=== PATIENT | female | born 1950 | race Caucasian/White ===

== ENCOUNTER 2016-09-25 | Outpatient (CLI) | payer MEDICARE, OTHER | END 2016-09-25 11:41 | disposition home or self-care (01) ==

== ENCOUNTER 2016-10-10 12:45 | Outpatient (CLI) | payer MEDICARE, OTHER | END 2016-10-10 12:46 | disposition home or self-care (01) | DX: G20 Parkinson's disease (principal); R53.83 Other fatigue; R52 Pain, unspecified; F33.9 Major depressive disorder, recurrent, unspecified; F41.9 Anxiety disorder, unspecified; K59.00 Constipation, unspecified; G25.81 Restless legs syndrome; F11.90 Opioid use, unspecified, uncomplicated; Z51.5 Encounter for palliative care; Z66 Do not resuscitate ==

== ENCOUNTER 2016-10-31 13:00 | Outpatient (CLI) | payer MEDICARE, OTHER | END 2016-10-31 13:01 | disposition home or self-care (01) | DX: G20 Parkinson's disease (principal); G24.9 Dystonia, unspecified; F33.0 Major depressive disorder, recurrent, mild; R52 Pain, unspecified; K59.00 Constipation, unspecified; F11.90 Opioid use, unspecified, uncomplicated; Z91.81 History of falling; R53.83 Other fatigue; G25.81 Restless legs syndrome; Z66 Do not resuscitate; Z51.5 Encounter for palliative care; R63.4 Abnormal weight loss; Z91.14 Patient's other noncompliance with medication regimen ==

== ENCOUNTER 2016-11-27 12:00 | Outpatient (CLI) | payer MEDICARE, OTHER | END 2016-11-27 12:01 | disposition home or self-care (01) | DX: G20 Parkinson's disease (principal); Z91.81 History of falling; F33.9 Major depressive disorder, recurrent, unspecified; F41.9 Anxiety disorder, unspecified; K59.00 Constipation, unspecified; G25.81 Restless legs syndrome; M54.5 Low back pain; Z79.891 Long term (current) use of opiate analgesic; R32 Unspecified urinary incontinence; M79.605 Pain in left leg; M79.604 Pain in right leg; R13.10 Dysphagia, unspecified; Z51.5 Encounter for palliative care; Z66 Do not resuscitate ==

== ENCOUNTER 2017-01-02 12:45 | Outpatient (CLI) | payer MEDICARE, OTHER | END 2017-01-02 12:46 | disposition home or self-care (01) | DX: Z51.5 Encounter for palliative care (principal); F32.9 Major depressive disorder, single episode, unspecified; G89.29 Other chronic pain; Z79.891 Long term (current) use of opiate analgesic; R13.10 Dysphagia, unspecified; Z91.81 History of falling; G24.9 Dystonia, unspecified; G20 Parkinson's disease; R10.9 Unspecified abdominal pain; G25.81 Restless legs syndrome; Z66 Do not resuscitate; R06.02 Shortness of breath ==

== ENCOUNTER 2017-01-30 13:30 | Outpatient (CLI) | payer MEDICARE, OTHER | END 2017-01-30 13:31 | disposition home or self-care (01) | DX: Z51.5 Encounter for palliative care (principal); F32.9 Major depressive disorder, single episode, unspecified; G89.29 Other chronic pain; K59.00 Constipation, unspecified; R47.02 Dysphasia; Z91.81 History of falling; G20 Parkinson's disease; G24.9 Dystonia, unspecified; R53.83 Other fatigue; F41.9 Anxiety disorder, unspecified; Z79.891 Long term (current) use of opiate analgesic; G25.81 Restless legs syndrome; Z66 Do not resuscitate; R06.02 Shortness of breath; N39.41 Urge incontinence; R20.2 Paresthesia of skin ==

== ENCOUNTER 2017-02-17 15:07 | Outpatient (CLI) | payer MEDICARE, OTHER | END 2017-02-17 15:08 | disposition critical access hospital (66) | LOC: EMS 15:07 | PROVIDERS: ATTEND Surgery | DX: S09.90XA Unspecified injury of head, initial encounter (principal); W18.31XA Fall on same level due to stepping on an object, initial encounter; Y92.012 Bathroom of single-family (private) house as the place of occurrence of the external cause | CPT/HCPCS: A0425; A0429 ==

== ENCOUNTER 2017-02-17 15:55 | Emergency (ER) | payer MEDICARE, OTHER ==
[2017-02-17 16:15] VITALS: BP 184/86
--- NOTE | 2017-02-17 16:21 | ED Physician Documentation ---
PD HPI Fall - Stated complaint Stated Complaint: FALL - Chief complaint Chief Complaint: General - History obtained from History obtained from: Patient - History of Present Illness Mechanism of injury: Slipped (in bathroom) Fall distance: Standing position Where injury occurred: Home Timing - onset: Today Injury(ies) location: Head (on side of face and head, with pain at masseter msucle and husrts with chewing.), Face Associated symptoms: No: LOC, AMS, Weakness, Paresthesias, Nausea / vomiting Worsens with: Movement (chewing and opening mouth), Palpation Contributing factors: No: Anticoagulated, Intoxicated Recently seen: Not recently seen Review of Systems Constitutional: denies: Fever, Chills Eyes: denies: Loss of vision, Decreased vision, Photophobia Nose: denies: Epistaxis Throat: denies: Dental pain / toothache Musculoskeletal: denies: Neck pain, Back pain Neurologic: denies: Generalized weakness, Focal weakness, Numbness Endocrine: denies: Easy bruising / bleeding PD PAST MEDICAL HISTORY - Past Medical History Respiratory: Other Neuro: Parkinson's Musculoskeletal: Osteoarthritis, Scoliosis, Chronic back pain - Present Medications Home Medications: Ambulatory Orders Medication Instructions Recorded Confirmed Amantadine HCl [Amantadine] 100 mg PO DAILY 02/17/17 02/17/17 Carbidopa/Levodopa 25/100 [Sinemet 1 tab PO QID 02/17/17 02/17/17 25 mg/100 mg] Omeprazole [PriLOSEC] 20 mg PO DAILY 02/17/17 02/17/17 Oxybutynin Chloride [Ditropan Xl] 15 mg PO DAILY 02/17/17 02/17/17 Polyethylene Glycol 3350 [Miralax] 1 tbs PO DAILY 02/17/17 02/17/17 Ropinirole HCl 1 mg PO BID 02/17/17 02/17/17 Ropinirole HCl 3 mg PO DAILY 02/17/17 02/17/17 Senna [Senokot] 8.6 mg PO BID 02/17/17 02/17/17 Trihexyphenidyl HCl 2 mg PO QID 02/17/17 02/17/17 Venlafaxine [Effexor] 37.5 mg PO DAILY 02/17/17 02/17/17 oxyCODONE [Roxicodone] 5 mg PO DAILY 02/17/17 02/17/17 - Allergies Allergies/Adverse Reactions: Allergies Allergy/AdvReac Type Severity Reaction Status Date / Time No Known Drug Allergies Allergy Verified 02/17/17 16:03 PD ED PE NORMAL - Vitals Vital signs reviewed: Yes - General General: Alert and oriented X 3, No acute distress, Well developed/nourished - HEENT HEENT: Ears normal, Moist mucous membranes, Pharynx benign, Dentition benign, Other (side of face with tenderness without deformity. No maloccllusion. ) - Neck Neck: Supple, no meningeal sign, No bony TTP, No adenopathy - Derm Derm: Normal color, Warm and dry - Neuro Neuro: Alert and oriented X 3, No motor deficit, No sensory deficit, Normal speech Results - Vitals Vitals: Oxygen O2 Source Room air - Rads (name of study) head and face CT Radiology: Prelim report reviewed, EMP read contemporaneously (no fractures nor bleed. ) PD MEDICAL DECISION MAKING - ED course Complexity details: considered differential, d/w patient Departure - Departure Disposition: 01 Home, Self Care Clinical Impression: Fall from slip, trip, or stumble Qualifiers: Encounter type: initial encounter Qualified Code(s): W01.0XXA - Fall on same level from slipping, tripping and stumbling without subsequent striking against object, initial encounter Facial contusion Qualifiers: Encounter type: initial encounter Qualified Code(s): S00.83XA - Contusion of other part of head, initial encounter Clinical Impression: (Ruled Out): Concussion Condition: Stable Record reviewed to determine appropriate education?: Yes Instructions: ED Contusion Face Follow-Up: Alec Aguilar MD [Primary Care Provider] - Comments: Usual medications. Soft food for 1-2 days as needed for pain of chewing. Added Tylenol 4 times daily for pain as needed. Recheck if not improved over the next several days. Discharge Date/Time: 02/17/17 18:13
--- NOTE | 2017-02-17 17:48 | CT Preliminary Report ---
Exam: CT Head W/O IMPRESSION: No acute intracranial CT abnormality. [facility] SITE ID: [id number]
--- NOTE | 2017-02-17 17:50 | CT Report ---
EXAM: CT HEAD EXAM DATE: 02/17/2017 05:22 PM. CLINICAL HISTORY: Fall with right side head pain. COMPARISON: None. TECHNIQUE: Multiaxial CT images were obtained from the foramen magnum to the vertex. IV contrast: Non e. Reformats: Coronal. In accordance with CT protocol optimization, one or more of the following dose reduction techniques w ere utilized for this exam: automated exposure control, adjustment of mA and/or KV based on patient s ize, or use of iterative reconstructive technique. FINDINGS: Parenchyma: No intraparenchymal hemorrhage. No evidence of mass, midline shift, or CT findings of inf arction. Orellana-white differentiation is distinct. Extraaxial Spaces: Normal for age. No subdural or epidural collections identified. Ventricles: Normal in size and position. Sinuses: Imaged paranasal sinuses, orbits, and mastoids show no significant abnormality. Bones: No evidence of fracture or calvarial defect. Other: None. IMPRESSION: No acute intracranial CT abnormality. [facility] Referring Provider Line: [phone] SITE ID: [id number]
--- NOTE | 2017-02-17 17:50 | CT Preliminary Report ---
Exam: CT Facial Bones W/O IMPRESSION: No evidence of fracture or dislocation. [facility] SITE ID: [id number]
--- NOTE | 2017-02-17 17:53 | CT Report ---
EXAM: CT MAXILLOFACIAL WITHOUT CONTRAST EXAM DATE: 02/17/2017 05:22 PM. CLINICAL HISTORY: Fall with right face pain. COMPARISONS: None. TECHNIQUE: Thin-section axial images were acquired of the face without contrast. Post-processing: Cor onal and sagittal reformats. Other: None. In accordance with CT protocol optimization, one or more of the following dose reduction techniques w ere utilized for this exam: automated exposure control, adjustment of mA and/or KV based on patient s ize, or use of iterative reconstructive technique. FINDINGS: Bones: No fracture or bone lesion. Temporomandibular Joints: The temporomandibular joints are symmetric and normally located. Sinuses: No significant abnormalities. There is mild maxillary sinus mucosal thickening. Other: None. IMPRESSION: No evidence of fracture or dislocation. [facility] Referring Provider Line: [phone] SITE ID: [id number]
== END 2017-02-17 18:13 | disposition home or self-care (01) ==
LOC: EDUNIT# → ED 15:55
DX: S00.83XA Contusion of other part of head, initial encounter (principal); W01.0XXA Fall on same level from slipping, tripping and stumbling without subsequent striking against object, initial encounter; Y92.012 Bathroom of single-family (private) house as the place of occurrence of the external cause; G20 Parkinson's disease; M19.90 Unspecified osteoarthritis, unspecified site
CPT/HCPCS: 70450; 70486; 99283

== ENCOUNTER 2017-03-06 13:15 | Outpatient (CLI) | payer MEDICARE, OTHER ==
--- NOTE | 2017-03-08 11:32 | CONSULTATION NOTE ---
DATE OF CONSULTATION: REQUESTING PROVIDER: Dr. Alec Aguilar. TIME OF VISIT: [id number]. TOPIC: Followup palliative care consult. Thank you, Dr. Aguilar asking the palliative care consult service to be involved in the care of your the patient. I am asked to address her pain and symptom management, as well as what her goals of car e and transition planning. The patient is seen in her home setting secondary to considerable and taxing effort for the patient t o leave the home related to her severe dyskinesia as a result of her advanced Parkinson's Also to [facility] il[facility] care planning and family conferencing. BRIEF HISTORY OF PRESENT ILLNESS: This is a feisty 67-year-old woman who has advanced Parkinson's wit h continued functional decline and increasing symptom burden which includes increased falls, fatigue, pain, depression, anxiety and constipation. She did have a serious fall that resulted in a visit to the ER on 02/17/2017. She reports she was in the bathroom and lost balance and did hit the right side of her face and head CT scan and facial CT showed her without any acute injury other than contusion. She presents today with significant dyskinesia, difficulty sitting upright, she leans to the right a nd appears to have more memory loss. Her daughter, Gilma, is here at the time of the visit, which she was able also to voice her concern about her mother's ongoing fall risk. They are having trouble adapting the environment, it is quite crowded, small narrows spaces with lifts on floor so that makes it difficult for her to use her trans eric wheelchair and the patient's continued impulsivity and lack of insight to the seriousness her of her falls. This does cause quite a bit of distress that sometimes some tension between her an d her daughter as they try to provide her safety contact assist and assistance with her fluctuating s tatus. She is able at times, her best time is in the morning. She does start disintegrate about 11 or 12. She fluctuates through the afternoon and is much more fatigued in the evening. She recently had a change from her neurologist who added entacapone 200 mg half tab in the a.m. while decreasing her c arbidopa/levodopa half tab. This has been about 1 week the patient does not see any difference and so mewhat attributes to worsening though the patient did stop her venlafaxine acutely. She had contacted me for a prescription. I have sent it to the [facility], which tends to be less than reliable and they did not let me know that not picked it up. We discuss at length the seriousness of stopping kendy ost any of her medications abruptly. SYMPTOM BURDEN: Her acute right rib pain has resolved. She continues to struggle with ongoing chronic back pain and lower extremity leg pain which has been managed with a 1/2 tab of oxycodone at noon an d 1800 and 1 tab at bedtime. She reports she feels actually fairly good about 0500 in the morning, wh ich is difficult on her family. Her Ropinirole and her restless leg syndrome has improved with incr ease dosing. She uses her bowel medications, appropriate with a bowel movement every other day. She c ontinues to have fatigue and does spend most of her time on the bed or on the couch watching TV, prob ably about 75% of the time. She still perceives her quality of life as quite good and tends to power through her limitations. ALLERGIES: NO KNOWN DRUG ALLERGIES. CURRENT MEDICATIONS LIST: 1. Amantadine 100 mg daily. 2. Ropinirole 4 mg in the a.m., 3 mg at noon and 3 in the evening. 3. Artane 2 mg 1 tab t.i.d. 4. Carbidopa/levodopa 25/100 mg half tablet in the a.m., a full tab at mid day and a full tab in the evening. 5. Oxybutynin extended release 50 mg daily. 6. Omeprazole 20 mg daily. 7. Oxycodone/acetaminophen 5/325 mg half to 1 tab for the day as noted above. 8. Miralax 17 grams one half tablet daily. 9. Senna 8.6 mg 2 tabs in the a.m. and 1 at night. 10. Effexor 37.5 mg daily. 11. Addition of Entacapone 200 mg half tab in the a.m. CODE STATUS: THE PATIENT DOES HAVE A POLST, WHICH IS A DO NOT ATTEMPT RESUSCITATION, ALLOW NATURAL DE ATH WITH LIMITED INTERVENTIONS, NO MEDICALLY ASSISTED NUTRITION, AND DETERMINE USE OF ANTIBIOTICS WIT H COMFORT THE GOAL. BRIEF SOCIAL HISTORY: She is to her Isaiah. They have both been having increased stress over her care needs. They have started the [employer] worker. Unfortunately, they had to restart the proc ess over. The caregivers had come for about a week and then were denied as application had . Bon cantrell is here today and does come and give respite relief every Thursday. Her mother much enjoyed h er company and interaction and she is able to take her out shopping. She does worry about her father as he is getting significant caregiver fatigue as well. When I talked to Bill, they have started the reapplication process and are going to continue to work towards reinstituting BIMAL. PERFORMANCE STATUS: The patient does have limited ability to participate in household tasks. She can be quite dyskinetic with random movements which makes it difficult. She is needing some increased ass istance with bathing. She is continuing to be able to feed herself and denies trouble with choking. I would put her at a palliative care performance status about 50%. REVIEW OF SYSTEMS: ENT: The patient reports a sore throat. This is starting to resolve. CARDIOVASCULAR: Denies chest ruba n or exertional dyspnea. RESPIRATORY: Denies shortness of breath or cough. GASTROINTESTINAL: She is d oing fine on a bowel program. GENITOURINARY: She does have frequency. MUSCULOSKELETAL: She does have intermittent freezing, stiffness. Overall, muscle aches and pains that fluctuate. INTEGUMENTARY: Angely madera has no skin tears or lesions but does have some hematomas from falling. NEUROLOGIC: rep orts the patient's memory is worsening. The patient does report her memory is "shot at times" but has little insight into it. There is concern about medication management. PSYCHIATRIC: She has had histo ry of depression and has been doing better though has been off for a week. ENDOCRINE: No history of d iabetes or hypothyroidism. HEMATOLOGIC/IMMUNOLOGIC: Continues with intermittent bruising from falls. PHYSICAL EXAMINATION: GENERAL APPEARANCE: She does appear somewhat pale, very dyskinesic today. Her voice is quite soft, fa ce more masked. EYES: Normal on inspection. ENT: Mucous membranes are slightly dry. Poor dentition. NECK: Trachea midline. RESPIRATORY: Breath sounds are clear. CARDIOVASCULAR: Her rate is regular, pulse is 84, blood pressure 142/82. Her O2 saturation is 95%, an d temperature 97.2. No lower extremity edema. ABDOMEN: Soft. SKIN: As noted above, no trauma. EXTREMITIES: No lower extremity edema. Her gait is quite ataxic. She tends to lean to the right, both with sitting and standing PALLIATIVE CARE DISCUSSION: Who was present: Myself, the patient and her daughter, Gilma. The patie nt does report really enjoying getting out weekly with her daughter. She does enjoy the housekeeper cleaning cooking a nd their interactions. She was quite distressed with the BIMAL workers to begin trying to figure out how best use them, but now is currently on hold, but does feel like she understands this process a li ttle bit better. I did express my concern about her fall, though this certainly would not had been mi tigated with any modifications to her environment. I did speak with Gilma as well about her concern s about her parents and just going on stressors regarding her increased care needs and concerned abou t her recent fall. She continues to present with functional and started some cognitive decline and duran s many ongoing stressors involved in her care. IMPRESSION: This is a 67-year-old woman with high symptom burden related to advanced Parkinson's and ongoing decline over the last several months. She herself fluctuates as far as both her mood, cogniti ve, and functional status. She remains at high risk for the sequelae of a fall as noted by her recent trip to the ER. RECOMMENDATIONS/COUNSELING DONE: 1. Pain, multifactorial in origin. She is using oxycodone and has found a good balance with that and is currently satisfied with her current regimen. Her Ropinrole is helping with her restless leg syndr ome and has had needed less use of the pedelar for relief. 2. Medication adherence. This again remained problematic as noted by not catching that the Effexor be ing available for over a week. She also has started some new medications by Dr. Arzate. There does ap pear to be somewhat of a bone of contention between her and her and not quite clear how to re solve this and hoping to end this with the daughter's help, as well as oversight for safety. 3. Dysphagia. The patient at this point in time does not want to followup with speech despite recomme ndation for updating aspiration precautions and working on communication. I did encourage her when sh e feels ready to do this to let me know and I will send a new referral. 4. Falls. She did have sustain an injury with a concussion this last time. She is quite fortunate wit hout any sequela to this. I again reiterated my concern as far as her risk and impulsivity. 5. Coping with adjustment to illness. It does appear with a yoon start to the BIMAL worker, I did en courage the to follow on through on her application process and reinitiate this. He is able t o see how this might be a relief for her and she was able to admit that this would be something that might be of help, particularly if things change in the future. TIME SPENT: Forty-five minutes with greater than 50% of this done in counseling and coordination of c are, management of symptoms, counseling regarding safety issue, evaluation of her depression and anti cipatory guidance, as well as followup with her daughter regarding her concerns as well. JOB #: [id number] EXT JOB #:[id number]
== END 2017-03-06 23:59 ==
LOC: PC 13:15
PROVIDERS: ATTEND Nurse Practitioner Adult Health
DX: Z51.5 Encounter for palliative care (principal); M79.606 Pain in leg, unspecified; R13.10 Dysphagia, unspecified; R29.6 Repeated falls; Z91.81 History of falling; G25.81 Restless legs syndrome; Z66 Do not resuscitate; G20 Parkinson's disease; F32.9 Major depressive disorder, single episode, unspecified; F41.9 Anxiety disorder, unspecified; K59.00 Constipation, unspecified; G24.9 Dystonia, unspecified; G89.29 Other chronic pain
CPT/HCPCS: 99349

== ENCOUNTER 2017-04-30 12:45 | Outpatient (CLI) | payer MEDICARE, OTHER ==
--- NOTE | 2017-05-01 17:09 | PROVIDER PROGRESS NOTE ---
Palliative Care Follow Up - Referral Referring Provider: Dr. Alec Aguilar Time of Visit: 04/30/2017 [id number] Referral setting: Home (patient is seen in her home setting secondary to it is a taxing and considerable effort for her to leave the home, and to adjust treatment plan in context of home and facilitate family conference.) Referral Reason: Advanced Parkinsons - Information Sources Records Reviewed: Old records reviewed History obtained from: Patient, Family Exam limitations: No limitations - History of Present Illness Update Brief HPI Update: This is a resilient 67 year old woman with advanced Parkinson's disease, who has noted in addition to her severe dyskinesias, is now experiencing more freezing, continues to have multiple falls, increasing right sided pain, and feels her legs are "heavy". She had trialed the encapone for three weeks in February prescribed by neurologist without improvement so stopped. She recognizes she is getting worse, but feels there has been nothing that has improved her worsening symptoms. She does not tolerate the oxycodone without sedation so hesitant to take it for her increasing pain, RLS worsening at night, and feeling overall a sense of fatigue. They did get the BIMAL caregiving worked out , so now has 3 hours a day which has helped with her husbands caregiver fatigue and distress. Social History - Living Situation Living arrangement: At home Living Situation: With spouse/s.o. ( continues to be stressed with her frequent falls, patient reports they are doing better between the two of them with increased support of BIMAL Daughter comes weekly to take her on outing, this brings her much kellie) Support System: Has BIMAL 3 hours a day, bobbin collector comes 1-2 times a week, daughter helps on Wednesdays Medications/Allergies - Medications Home Medications: Ambulatory Orders Medication Instructions Recorded Confirmed Amantadine HCl [Amantadine] 100 mg PO DAILY 02/17/17 05/03/17 Carbidopa/Levodopa 25/100 [Sinemet 1 tab PO TID 02/17/17 05/03/17 25 mg/100 mg] Omeprazole [PriLOSEC] 20 mg PO DAILY 02/17/17 05/03/17 Oxybutynin Chloride [Ditropan Xl] 15 mg PO DAILY 02/17/17 05/03/17 Polyethylene Glycol 3350 [Miralax] 17 gm PO DAILY 02/17/17 05/03/17 Ropinirole HCl 1 mg PO BID 02/17/17 05/03/17 Ropinirole HCl 3 mg PO DAILY 02/17/17 05/03/17 Senna [Senokot] 8.6 mg PO BID 02/17/17 05/03/17 Venlafaxine [Effexor] 37.5 mg PO DAILY 02/17/17 02/17/17 oxyCODONE [Roxicodone] 2.5 - 5 mg PO Q3HR PRN 02/17/17 05/03/17 - Allergies Allergies/Adverse Reactions: Allergies Allergy/AdvReac Type Severity Reaction Status Date / Time No Known Drug Allergies Allergy Verified 02/17/17 16:03 Review of Systems - Constitutional Constitutional: reports: Fatigue, Malaise, Weight gain (has someone cooking daily dinner) - Eyes Eyes: reports: Vision loss, Corrective lenses - Ears, Nose & Throat Ears, Nose & Throat: reports: Hearing loss (feels right ear "clogged" and needs cleaning) - Cardiovascular Cariovascular: reports: Decr. exercise tolerance. denies: Chest pain, Edema - Respiratory Respiratory: reports: SOB with exertion. denies: Cough, SOB at rest - Gastrointestinal Gastrointestinal: reports: Reflux/heartburn (intermittent). denies: Abdominal distention, Constipation, Nausea - Genitourinary Genitourinary: reports: Urgency, Incontinence, Nocturia - Musculoskeletal Musculoskeletal: reports: Muscle aches, Limited range of motion, Muscle weakness , Other (right foot pain from callous impacts balance) - Integumentary Integumentary: reports: Other (right foot callous) - Neurological Neurological: reports: Abnormal gait (reports increase freezing), Slurred speech (speech much more soft difficult to hear) - Psychiatric Psychiatric: reports: Depression, Anxiety - Endocrine Endocrine: reports: Intolerance to cold - Hematologic/Lymphatic Hematologic/Lymphatic: reports: Bruising (from frequent falls) - All Other Systems All Other Systems: reports: Reviewed and negative Physical Examination - Vital Signs Pulse Rate: 90 Respiratory Rate: 18 O2 Saturation: 99 (RA) Blood Pressure: 108/72 - Physical Exam General Appearance: positive: Mild distress, Anxious Eyes Bilateral: positive: Normal inspection ENT: positive: ENT inspection nml, No signs of dehydration, Other (cont. with poor dental) Neck: positive: Trachea midline Respiratory: positive: Breath sounds nml Cardiovascular: positive: Regular rate & rhythm Abdomen: positive: Nml bowel sounds, No distention Skin: positive: Other (1 cm raised tender hard callous right foot) Extremities: positive: Other (patient with poor balance when up, dyskinesthia severe, halting steps, sits with leaning to right, tender to palpation in area) Neurologic/Psychiatric: positive: Oriented x3, Weakness, Slurred/abnml speech, Depressed mood/affect Palliative Care - POLST Patient has POLST: Yes POLST Status: DNR, Limited Interventions Pain: Pain worsening, Location (right sided, rib fx should be healed at this time, dyskinesthias and movement worsen it; most comfortable lying down. oxycodone helps but makes "sleepy") Drowsiness: Moderate (4-6) (does sleep through day on and off, c/o feeling lethargic) Nausea: None Anxiety: Mild (1-3) Dyspnea: None Anorexia: None Insomnia: Sleeps poorly (up to void and RLS worsening) Constipation: Yes, Opoid induced, Managed Feelings of wellbeing/Perceived Quality of Life: Worsening (recognizes worsening , feeling very vulnerable) Performance Status: Patient needing more assistance with ADLS, showering with her to assist , no longer cooking, spends more time in chair/couch some limited by pain and fatigue. BIMAL assisting with personal care more, patient trying to maintain independence as long as possible. Unable to adjust house arrangements to accommodate w/c or scooter to allow patient to have mobility in home. - Palliative Care Discussion: Discussed concern over declining status and increased symptoms. Encouraged to explore her options in response to wanting to see movement specialist. Current quality of life continues to decline, high risk for sequela of a serious fall, and worried about impact on family. Doesn't like to dwell or talk about feeling of sadness and loss much as there is "nothing she can do", tries to stay positive and upbeat but admits difficult at times. Impression and Recommendations - Palliative Care Impression: This is a 67 year old woman with increasing symptom burden and functional decline, trying to remain independent as long as possible. She does have fluctuating status. Her most immediate goal is to participate in a camping trip with her , going to try "local". Recommendations/Counseling Done: 1. Acute on chronic pain. Right sided pain remains problematic, exacerbated by her dyskinesias and positioning/leaning to the right. Relieved with oxycodone but dislikes sedation, not wanting to explore other options currently for pain management. 2. Fatigue, multifactorial in origin. Recommended try effexor at night, see if this helps. 3. Depression without psychotic features. Still responding to effexor, counseling for normalizing current feelings related to decline and loss of independence. 4. Constipation, currently managed on regimen. 5. Advanced Parkinsons, symptoms worsening with increased freezing, balance problems, falls, and dyskinethias. Recent medication adjustments without improvement. Offered again ST for speech, more difficult to understand and CIRCLE, declined for now. 6. Advanced care planning. POLST in place, setting short term goals. Current support assisting with caregivers fatigue, family remains concerned about fall risk, patient can be impulsive and "stubborn", attempting to find balance. Time Spent: 60 minutes with greater than 50% done in counseling regarding goals of care/ symptom management/depression and anticipatory guidance.
== END 2017-04-30 12:46 | disposition home or self-care (01) ==
LOC: PC 12:45
PROVIDERS: ATTEND Nurse Practitioner Adult Health
DX: Z51.5 Encounter for palliative care (principal); R52 Pain, unspecified; F32.9 Major depressive disorder, single episode, unspecified; K59.00 Constipation, unspecified; G20 Parkinson's disease; G24.9 Dystonia, unspecified; Z91.81 History of falling; G25.81 Restless legs syndrome; Z79.891 Long term (current) use of opiate analgesic; R63.5 Abnormal weight gain; H91.91 Unspecified hearing loss, right ear; R06.09 Other forms of dyspnea; R12 Heartburn; R39.15 Urgency of urination; R26.9 Unspecified abnormalities of gait and mobility; F41.9 Anxiety disorder, unspecified; Z66 Do not resuscitate
CPT/HCPCS: 99350

== ENCOUNTER 2017-06-01 17:27 | Emergency (ER) | payer MEDICARE, OTHER ==
[2017-06-01 17:42] VITALS: BP 117/70
--- NOTE | 2017-06-01 18:49 | ED Physician Documentation ---
PD HPI Fall - Stated complaint Stated Complaint: SIDE PX/FALL - Chief complaint Chief Complaint: General - History obtained from History obtained from: Patient, Family - History of Present Illness Mechanism of injury: Slipped Fall distance: Standing position Where injury occurred: Home Timing - onset: Yesterday Pain level max: 5 Pain level now: 3 Quality of pain: Pain, Aching Associated symptoms: Dyspnea (states hurt to breathe earlier today, now resolved ). No: LOC, AMS, Amnesia, Neck pain, Weakness, Paresthesias Symptoms improve with: Rest Worsens with: Movement, Palpation Contributing factors: No: Anticoagulated, Intoxicated - Additional information Additional information: hit R low chest on couch yesterday at home. Has not taken anything for pain. 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 - Present Medications Home Medications: Ambulatory Orders Medication Instructions Recorded Confirmed Amantadine HCl [Amantadine] 100 mg PO DAILY 02/17/17 06/01/17 Carbidopa/Levodopa 25/100 [Sinemet 1 tab PO TID 02/17/17 06/01/17 25 mg/100 mg] Omeprazole [PriLOSEC] 20 mg PO DAILY 02/17/17 06/01/17 Oxybutynin Chloride [Ditropan Xl] 15 mg PO DAILY 02/17/17 06/01/17 Polyethylene Glycol 3350 [Miralax] 17 gm PO DAILY 02/17/17 06/01/17 Ropinirole HCl 1 mg PO BID 02/17/17 06/01/17 Ropinirole HCl 3 mg PO DAILY 02/17/17 06/01/17 Senna [Senokot] 8.6 mg PO BID 02/17/17 06/01/17 Venlafaxine [Effexor] 37.5 mg PO DAILY 02/17/17 06/01/17 oxyCODONE [Roxicodone] 2.5 - 5 mg PO Q3HR PRN 02/17/17 06/01/17 - Allergies Allergies/Adverse Reactions: Allergies Allergy/AdvReac Type Severity Reaction Status Date / Time No Known Drug Allergies Allergy Verified 06/01/17 17:50 - Social History Does the pt smoke?: No Smoking Status: Never smoker Does the pt drink ETOH?: No Does the pt have substance abuse?: No - Immunizations Immunizations are current?: Yes - POLST Patient has POLST: Yes PD ED PE NORMAL - Vitals Vital signs reviewed: Yes - General General: Alert and oriented X 3, No acute distress - HEENT HEENT: Atraumatic, PERRL - Neck Neck: No bony TTP - Cardiac Cardiac: RRR - Respiratory Respiratory: No respiratory distress, Clear bilaterally, Other (no chest wall tenderness, crepitus or ecchymosis. ) - Abdomen Abdomen: Soft, Non tender, Non distended - Derm Derm: Warm and dry - Neuro Neuro: Alert and oriented X 3 - Psych Psych: Normal mood, Normal affect Results - Vitals Vitals: Vital Signs - 24 hr 06/01/17 17:31 Temperature 36.4 C L Heart Rate 88 Respiratory 18 Rate Blood Pressure 117/70 O2 Saturation 100 Oxygen O2 Source Room air PD MEDICAL DECISION MAKING - ED course Complexity details: considered differential, d/w patient, d/w family ED course: Patient is a 67-year-old female presents to the emergency department with a right lower anterior rib pain after striking them on a couch yesterday. There is no tenderness to palpation on examination here. Normal lung exam. No crepitus. No evidence of pneumothorax, displaced rib fracture, hemothorax. No evidence of intra-abdominal injury. She declines any pain medication here or for home. We will continue supportive care and follow-up with her doctor. Patient counseled regarding signs and symptoms for which I believe and urgent re -evaluation would be necessary. Patient with good understanding of and agreement to plan and is comfortable going home at this time This document was made in part using voice recognition software. While efforts are made to proofread this document, sound alike and grammatical errors may occur. Departure - Departure Disposition: 01 Home, Self Care Clinical Impression: Contusion of rib on right side Qualifiers: Encounter type: initial encounter Qualified Code(s): S20.211A - Contusion of right front wall of thorax, initial encounter Condition: Good Instructions: ED Contusion Vs Minor Fx Rib Follow-Up: Alec Aguilar MD [Primary Care Provider] - Within 1 week Comments: You can use Motrin or Tylenol for pain at home. Return if you worsen Discharge Date/Time: 06/01/17 18:54
== END 2017-06-01 18:54 | disposition home or self-care (01) ==
LOC: ED 17:27
DX: S20.211A Contusion of right front wall of thorax, initial encounter (principal); W01.190A Fall on same level from slipping, tripping and stumbling with subsequent striking against furniture, initial encounter; Y92.018 Other place in single-family (private) house as the place of occurrence of the external cause; G20 Parkinson's disease; M19.90 Unspecified osteoarthritis, unspecified site
CPT/HCPCS: 99282; 99283

== ENCOUNTER 2017-09-02 17:25 | Outpatient (CLI) | payer MEDICARE, OTHER, MEDICAID ==
--- NOTE | 2017-09-02 17:28 | CONSULTATION NOTE ---
Palliative Care Follow Up - Referral Referring Provider: Dr. Yousif Aguilar Time of Visit: [id number] Referral setting: Home Referral Reason: Advanced Parkinsons - Information Sources History/Review of Systems obtained from: Patient Exam limitations: Clinical condition - History of Present Illness Update Brief HPI Update: This is a 67-year-old woman with advanced Parkinson's disease who has severe dyskinesias, she recently went to a movement specialist clinic, and hopes to have better control. She has had her medications switched up. With increased sustained carbidopa levodopa. Unfortunately she is experiencing more freezing, less able to stand with poor balance, and continues to experience frequent falls. She did have a team evaluation as part of the clinic visit, they recommended therapy closer to home, including PT/OT/ST. Patient does appear to have some increasing cognitive difficulties, with poor memory, word finding, her speech continues to be quite soft and difficult to understand. Today at her visit, she is unable to get out of the chair, her reports this is been more frequent over the last couple weeks. Patient though reports her mood has been better, she tends to be somewhat impulsive, her frequent falls are causing much more distress between her and her . Her caregiving needs are increasing, though she has increased lola hours, there is a lot of tension regarding this. Social History - Living Situation Living arrangement: At home Living Situation: With spouse/s.o. Support System: Patient does need assistance with bathing, she and her shower together. Encouraged to use caregivers to assist with bathing to decrease stress on , patient remains quite resistant.They do have [employer] hours for 15 hours total for the week, they tend to use it in the afternoon, and assist with meal prep and patient oversight and care.He would be able to assist with transportation for rehab services. Medications/Allergies - Medications Home Medications: Ambulatory Orders Medication Instructions Recorded Confirmed Omeprazole [PriLOSEC] 20 mg PO DAILY 02/17/17 09/03/17 Oxybutynin Chloride [Ditropan Xl] 15 mg PO DAILY 02/17/17 09/03/17 Ropinirole HCl 1 mg PO BID 02/17/17 09/03/17 Ropinirole HCl 4 mg PO QDBREAKFAST 02/17/17 09/03/17 Senna [Senokot] 17.2 mg PO QPM 02/17/17 09/03/17 Venlafaxine [Effexor] 37.5 mg PO QPM 02/17/17 09/03/17 Acetaminophen 1 tab PO PRN PRN 07/24/17 09/03/17 Trihexyphenidyl HCl 1 tab PO TID 07/24/17 09/03/17 oxyCODONE/ACET 5/325 [Percocet 5 0.5 - 1 each PO PRN PRN 07/24/17 09/03/17 mg/325 mg] Carbidopa/Levodopa [Rytary ER 1 tab PO BID 09/03/17 09/03/17 23.75 mg-95 mg Cap] - Allergies Allergies/Adverse Reactions: Allergies Allergy/AdvReac Type Severity Reaction Status Date / Time No Known Drug Allergies Allergy Verified 06/01/17 17:50 Review of Systems - Constitutional Constitutional: reports: Fatigue, Weight gain (about 5 pounds) - Eyes Eyes: reports: Vision loss, Corrective lenses - Ears, Nose & Throat Ears, Nose & Throat: reports: Dental decay, Other (no noted change with swallowing or choking) - Cardiovascular Cardiovascular: reports: Decr. exercise tolerance - Respiratory Respiratory: reports: SOB with exertion - Gastrointestinal Gastrointestinal: reports: Reflux/heartburn (intermittent; worse if forgets omeprazole), Good appetite, Other (complaining of "pastey" consistency of stool and needing assistance with toileting/cleaning) - Genitourinary Genitourinary: reports: Incontinence (worsening) - Musculoskeletal Musculoskeletal: reports: Other (dyskinesthia is worsened on new regimen per ; patient reluctant to admit but does; wants to give more time) - Integumentary Integumentary: reports: Lesions (right ankle "barnacle") - Neurological Neurological: reports: General weakness, Memory problems (worsening), Abnormal gait (balance worsening), Incoordination, Other (frequent falls) - Psychiatric Psychiatric: reports: Anxiety - Hematologic/Lymphatic Hematologic/Lymphatic: denies: Recurrent infections - All Other Systems All Other Systems: reports: Reviewed and negative Physical Exam - Vital Signs Pulse Rate: 72 Respiratory Rate: 18 Blood Pressure: 108/62 - Physical Exam General Appearance: positive: No acute distress, Alert Eyes Bilateral: positive: Normal inspection ENT: positive: No signs of dehydration Neck: positive: No JVD, Trachea midline Cardiovascular: positive: Regular rate & rhythm Respiratory: positive: Breath sounds nml Abdomen: positive: Soft, Nml bowel sounds, Tenderness (right sided tenderness; leans to right presses on rib/hip with dyskinethia worsens pressure) Skin: positive: Pallor, Bruising (from multiple falls), Other (severe painful callous on right foot; recommended podiatry appointment has not gone for awhile) Extremities: positive: No pedal edema, Other (unable to stand during visit; having more freezing/balance issues; needing more assistance; more falls) Neurologic/Psychiatric: positive: Oriented x3, Mood/affect nml, Other (more difficulty with memory noted through exam; confirms) Palliative Care - POLST Patient has POLST: Yes POLST Status: DNR, Limited Interventions Pain: Pain unchanged, Location (lower back; right side worsens when up or positioning; using APAP during the day; oxycodone at night) Tiredness/Fatigue: Moderate (4-6) Drowsiness/Sedation: Mild (1-3) Nausea: None Depression: Mild (1-3) Anxiety: Moderate (4-6) Dyspnea: None Anorexia: None Sleep: Sleeps well Constipation: No Feelings of wellbeing/Perceived Quality of Life: Fair, Acceptable, Worsening Performance Status: Patient with functional decline, this includes more time in chair, more freezing , increased balance problems. She is bathing with her 's assist as well as assist with dressing. Patient can still self-feed though probably would benefit from adaptive equipment. She reports she does not choke though she is very careful, her dyskinesias have worsened with change in medications. PT had recommended a 4 wheeled walker with tennis balls currently she has a rolling walker concerned about safety. They have not obtained this yet. - Palliative Care Discussion: Patient remains quite concerned about her ongoing decline, asking questions about end-stage Parkinson's. We did review often related to frequent infections , pneumonia, increased difficulty with swallowing and weight loss. Though her dyskinesia and functional decline has progressed, she remains weight neutral with no hospitalizations for infection. We did discuss my biggest concern as far as an end-of-life event, would be a sequela of a fall. She is quite impulsive and gets up frequently without assistance, she is also pretty unpredictable as far as her freezing. Her remains really quite distressed with her frequency of falls, very worried about significant trauma, she had did have a visit to the ED earlier in July as a result of the fall. She does recognize this risk, though there is some disconnect as far as her ability to follow through on safety measures. I Did meet with separately, he is quite burned out, she is needing more help with personal care and toileting, when asked about his support, he does have some buddies he talks to. Did offer palliative care health care social worker, he will consider. He does present with symptoms of caregiver fatigue Impression and Recommendations - Palliative Care Impression: This is a 67-year-old woman with advanced Parkinson's who continues to struggle with fairly high symptom burden, including pain, fatigue, depression, and grief and loss. Recent change in medications have resulted in some functional decline , with increased problems with balance, freezing, and frequency of falls. Patient remains quite resistant to considering changing at this point in time, she would like to give it another couple weeks. Will obtain notes from movement clinic and follow-up accordingly. Recommendations/Counseling Done: 1. Advanced Parkinson's. Has been prefers therapies closer to home, did follow up with [facility], they do have all 3 therapies PT/OT plus ST. Will make a referral for PT for balance and safe ambulation, increase in strengthening. OT for adaptive equipment and dressing as well as upper extremity strengthening. She does have a tendency to lean to the right. And speech therapy for language , has difficulty understanding her currently, and cognitive eval. Concerned about deterioration with increased parkinsonian symptoms and increase in dyskinesia as well as falls, agreed would meet again in 2-3 weeks if not improved will follow up with new provider regarding titration. 2. Bowel incontinence. I will have patient hold the MiraLAX, her stool is quite pasty, her other severe symptom has been constipation in the past. Can add Benefiber if need be but will take 1 step at a time. This is reviewed with to discontinue MiraLAX currently 3. Urinary incontinence. This is increased over the last few weeks. No signs or symptoms of urinary tract infection. Patient reports mostly his urgency, and with her dyskinesias unable to get to the toilet and quick enough.She dislikes being dependent on her for assistance, we did discuss the use of urinary supplies with the ones with the tabs. This will keep her from needing to change all her close. Currently she is just using urinary incontinence pads in her underwear which are not managing her adequately. Counseling regarding management of incontinence. Will have OT address with ADL training/follow up. 4. For advanced care planning. Patient continues to enjoy time with family, is worried about her increasing dependence and burden on her . She is considering moving closer to her daughter, as she finds this support would be less stress on her . Is wondering about her prognosis and making long- term plans, anticipatory guidance and counseling done Time Spent: 45 minutes with greater than 50% of this done in counseling regarding management of functional decline, anticipatory guidance, and review of symptom management
== END 2017-09-02 17:26 | disposition home or self-care (01) ==
LOC: PC 17:25
PROVIDERS: ATTEND Nurse Practitioner Adult Health
DX: Z51.5 Encounter for palliative care (principal); G20 Parkinson's disease; R15.9 Full incontinence of feces; N39.41 Urge incontinence; G24.9 Dystonia, unspecified; R29.6 Repeated falls; Z91.81 History of falling; R45.87 Impulsiveness; Z79.891 Long term (current) use of opiate analgesic; R53.83 Other fatigue; R63.5 Abnormal weight gain; R06.09 Other forms of dyspnea; K21.9 Gastro-esophageal reflux disease without esophagitis; M62.81 Muscle weakness (generalized); F32.9 Major depressive disorder, single episode, unspecified; F41.9 Anxiety disorder, unspecified; Z66 Do not resuscitate
CPT/HCPCS: 99349

== ENCOUNTER 2017-10-01 19:34 | Outpatient (CLI) | payer MEDICARE, OTHER, MEDICAID ==
--- NOTE | 2017-10-01 19:50 | CONSULTATION NOTE ---
Palliative Care Follow Up - Referral Time of Visit: 4253-5685 Referral setting: Home (Patient is seen in their home setting secondary is considerable and taxing effort for her to leave the home with increasing dyskinesias and Parkinson syndromes.) Referral Reason: Advanced Parkinsons - Information Sources Records reviewed: Previous records reviewed History/Review of Systems obtained from: Patient Exam limitations: No limitations - History of Present Illness Update Brief HPI Update: This is a spunky 67-year-old woman with advanced Parkinson's who suffers from severe dyskinesias, poor truncal strength with leaning to the right, and recently has been evaluated a movement specialist clinic at [place]. She has had some medication changes, she has not found these to be much of an improvement in her symptoms. Both she and her notes increased freezing , more difficulty with her lower extremity strength, and ongoing cognitive challenges. In the context of referral to outpatient PT/OT/ST, patient had originally requested to go to a "clinic". This is related to wanting to decrease her isolation and get out. She is finding it much more difficult to manipulate and manage her mobility outside of the home, and had a physical therapist after evaluation had contact me and recommended home therapy particularly in the context of adaptation equipment and home safety. Her other persistent problem has been concerned about her constipation versus incontinence , changes in her bowel program with adding fiber at this point in time were not of help. Social History - Living Situation Living arrangement: At home Living Situation: With spouse/s.o. (Patient does now have lola worker hours Yomi 2-3 hours 5 times a week. This is been very helpful, and also decreases patient's isolation.) Medications/Allergies - Medications Home Medications: Ambulatory Orders Medication Instructions Recorded Confirmed Omeprazole [PriLOSEC] 20 mg PO DAILY 02/17/17 10/01/17 Oxybutynin Chloride [Ditropan Xl] 15 mg PO DAILY 02/17/17 10/01/17 Ropinirole HCl 1 mg PO BID 02/17/17 10/01/17 Ropinirole HCl 4 mg PO QDBREAKFAST 02/17/17 10/01/17 Senna [Senokot] 17.2 mg PO QPM PRN 02/17/17 10/01/17 Venlafaxine [Effexor] 37.5 mg PO QPM 02/17/17 10/01/17 Acetaminophen 500 mg PO PRN PRN 07/24/17 10/01/17 Trihexyphenidyl HCl 1 tab PO TID 07/24/17 10/01/17 oxyCODONE/ACET 5/325 [Percocet 5 0.5 - 1 each PO PRN PRN 07/24/17 10/01/17 mg/325 mg] Carbidopa/Levodopa [Rytary ER 1 tab PO BID 09/03/17 10/01/17 23.75 mg-95 mg Cap] - Allergies Allergies/Adverse Reactions: Allergies Allergy/AdvReac Type Severity Reaction Status Date / Time No Known Drug Allergies Allergy Verified 06/01/17 17:50 Review of Systems - Constitutional Constitutional: reports: Fatigue, Weight stable - Eyes Eyes: reports: Vision loss, Corrective lenses - Ears, Nose & Throat Ears, Nose & Throat: reports: Postnasal drainage, Other (Reports teeth are in bad condition, but hesitant to have any work done secondary she is afraid of dental procedures but also wondering about the future if worth investing the money) - Cardiovascular Cardiovascular: reports: Lightheadedness (orthstatic hypo tension contributing to falls), Decr. exercise tolerance - Respiratory Respiratory: reports: SOB with exertion - Gastrointestinal Gastrointestinal: reports: Constipation (Patient still has not found adequate bowel program, am concerned most likely she did not follow through on instructions given her cognitive changes. She reports her has short- term memory issues well, and so she is still doing her own medications. Her distress is with bowel movements, she is having oozing, and needs help with cleaning.), Good appetite. denies: Reflux/heartburn (controlled currently) - Genitourinary Genitourinary: reports: Incontinence (This continues progress and is somewhat distressful to patient, she is wearing pads) - Musculoskeletal Musculoskeletal: reports: Back pain, Stiffness, Muscle weakness, Assistive devices (has rollling 4WW), Transfer issues (has transport wheelchair) - Integumentary Integumentary: reports: Dryness - Neurological Neurological: reports: Memory problems, Slurred speech (speech continues to deteriorate; was seen By speech therapy, fortunately she can continue with her with home health. She was diagnosed with severe hypophonic dysarhria) - Psychiatric Psychiatric: reports: Depression (currently well controlled) - Endocrine Endocrine: denies: Diabetes type 2, Hypothyroidism - Hematologic/Lymphatic Hematologic/Lymphatic: denies: Recurrent infections - All Other Systems All Other Systems: reports: Reviewed and negative Physical Exam - Vital Signs Temperature: 99.1 C Pulse Rate: 92 Respiratory Rate: 18 O2 Saturation: 98 (ra@rest) Blood Pressure: 104/72 - Physical Exam General Appearance: positive: No acute distress Eyes Bilateral: positive: Normal inspection ENT: positive: No signs of dehydration Neck: positive: Nml inspection, Stiff neck Cardiovascular: positive: Regular rate & rhythm Respiratory: positive: Breath sounds nml Abdomen: positive: Non-tender, Soft, Nml bowel sounds Skin: positive: Pallor, Dryness Extremities: positive: No pedal edema, Other (Patient with severe dyskinesias, on arrival was having freezing episode unable to move forward needed manual assistance with both and myself to sit down. Continues to lean dramatically to the right. She attributes this to her fatigue after her physical therapy evaluation. Both be reiterated how helpful it had been under looking forward to working with home health services) Neurologic/Psychiatric: positive: Oriented x3, Mood/affect nml, Weakness Palliative Care - POLST Patient has POLST: Yes POLST Status: DNR, Selective Treatment Pain: Pain improved (Continues with restless leg syndrome, this is at baseline; reports right rib pain and right-sided discomfort has improved, back pain intermittent. She is using oxycodone 5 mg 1 tab at night, dislikes other medications given she is sensitive to sedation so does not use this in the day very often.) Tiredness/Fatigue: Mild (1-3) Drowsiness/Sedation: Moderate (4-6) (Tends to sleep "all the time". This is more related to her isolation and boredom) Nausea: None Depression: Mild (1-3) Anxiety: None Dyspnea: None Anorexia: None Sleep: Variable sleep pattern Constipation: Yes, Intermittent constipation Feelings of wellbeing/Perceived Quality of Life: Good, Acceptable, Worsening Performance Status: Patient needing more assistance, continues to have help her with showering. Her ambulation is becoming more difficult with increased freezing spells, and she continues to have intermittent falls but they have been on injury at this point in time. She is looking forward to suggestions from the rehab team I would put her at a PPS of 50% - Palliative Care Discussion: Patient able to recognize that she is continued to decline, needing increased assistance with most things. She remains quite impulsive which continues to be distressing for her , the patient's perspective is they are getting along better. When asked about her depression, she reports she feels like she is doing much better, she reflects back that she is to "cry all the time" and she was very afraid about , feels like the work we have done has improved her long-term outlook as far as what to expect. She has had more interaction with paid caregivers, now will have the rehab team coming in, she does miss her weekly outings and support from her daughter, who has recently started work that now precludes their standing Thursday date. Impression and Recommendations - Palliative Care Impression: This is an impulsive and feisty 67-year-old woman with advanced Parkinson's, she continues to have increased symptoms and distress related to her progression of her disease, as well as some functional decline. She and her continue to try and adapt, their goals to focus on keeping her at home for as long as possible as well as to improve her quality of life. Recommendations/Counseling Done: 1. Constipation. Counseling regarding bowel program, Mitra was not of help. She does get quite distressed with "oozing stool" and the fact she cannot clean herself needing enlistment of her 's assist. Did recommend considering going to adjust the senna 1 tab every other day, am concerned as on initial palliative care visits constipation was a significant issue. Will follow up with OT if there are some other ways that she can manage her toileting that does not include assistance. 2. Advanced Parkinson's. Patient having more more fatigue and difficulty with housebound status. Will transition to home health rehab focus. This was initiated today with encouragement from both her and her as far as the usefulness of this. She had been seen a speech therapist at the clinic, she does also work on the home health team this will be of support to patient. She is due to follow-up with the movement therapist regarding medications, they are waiting a release of another newer Parkinson's medication for her to initiate. She has not seen much improvement with the new time-released Ryberg, and still feels that she is continuing to decline. She is quite resilient, but concerned about her cognitive deficits in the context of being able to process and adapt to her ongoing decline. 3. Depression. Patient able to express their she is not having any persistent and pervasive feelings of depression, she is somewhat isolated but this is been improved with the initiation of lola workers. Counseling provided for grief and loss issues as well as anticipatory guidance [id number] for rehab therapy services. Patient is homebound secondary is considerable and taxing effort for her to leave the home with increased fatigue , progressed symptoms regarding her Parkinson's related to cognitive, neuromuscular, musculoskeletal as well as cardiac which includes orthostatic hypotension. She would benefit from physical therapy for management of falls, equipment recommendations, and a home exercise program. Has been his caregiver training for managing her fluctuating healthcare status. OT for management of bathing, ADL adaptation, cognitive eval, and recommendations for equipment. Speech therapy to continue with works relating to swallowing and working with her speech. She has been initiated on that LSVT program, and wishes to continue this. Time Spent: 30 minutes with greater than 50% of this done in counseling and coordination of care providing [id number] for rehab therapies follow-up on depression bowel program and home safety issues. Will continue to see patient every 6-8 weeks.
== END 2017-10-01 19:35 | disposition home or self-care (01) ==
LOC: PC 19:34
PROVIDERS: ATTEND Nurse Practitioner Adult Health
DX: Z51.5 Encounter for palliative care (principal); K59.00 Constipation, unspecified; G20 Parkinson's disease; F32.9 Major depressive disorder, single episode, unspecified; G24.9 Dystonia, unspecified; Z79.891 Long term (current) use of opiate analgesic; R06.09 Other forms of dyspnea; R47.81 Slurred speech; G25.81 Restless legs syndrome; Z66 Do not resuscitate
CPT/HCPCS: 99348

== ENCOUNTER 2017-11-18 15:00 | Outpatient (CLI) | payer MEDICARE, OTHER, MEDICAID ==
--- NOTE | 2017-11-18 18:01 | CONSULTATION NOTE ---
Palliative Care Follow Up - Referral Referring Provider: Dr. Alec Aguilar Time of Visit: 7038-4727 Referral setting: Home (It is a taxing considerable effort for the patient to leave the home secondary to her fatigue level and parkinsonian symptoms) Referral Reason: Advanced Parkinsons - Information Sources Records reviewed: Previous records reviewed History/Review of Systems obtained from: Patient, Family ( Bill and caregiver Pia at visit) Exam limitations: Clinical condition (Patient with some short-term memory recall deficits) - History of Present Illness Update Brief HPI Update: This is a spunky 67-year-old woman with advanced Parkinson's who suffers from severe dyskinesias, poor truncal strength with leaning to the right, functional decline over the last 6 months to a year, mild cognitive impairment to the results of impulsivity, and has not had an exacerbation of her parkinsonian symptoms over the last several weeks. Patient initially was referred to outpatient therapy, this was actually at the patient's request she is quite isolated and was hopeful to get out more often, she did have more difficulty tolerating this and agreed therapy evaluations and training in the home would be of more benefit to she and her . Physical therapy has been working on caregiver training, transfer techniques, and balance with some improvement. She did have the flu and this interrupted her treatment plan for about 2 weeks. She is still recovering with some residual fatigue. She has been seen by OT and presents with a severe dependency level of 46/100 on modified partial ADL index, she does require some level assistance for almost all ADLs and safety at this point in time. She denies any increased difficulty with swallowing, or choking but does present with a very soft monotone voice is unclear if she will participate or benefit from further speech therapy. Patient's most distressing symptom has been increased freezing, an exacerbation in her tremors. Patient was switched from extended release carbidopa levodopa to new medication of the time-released Rytery. Patient has seen no improvement, and does admit to continued decline, has been reports she as bad as she ever has been, and attributes this to the medication changes. She has developed severe anxiety and noted tremors with this anxiety, attributes this to distress regarding her freezing. She is able to identify a pattern with the tremors, it does happen more often with people around, increased anxiety, she reports she takes her pills late and it starts about 11 AM is on and off and starts again around 1600. Observation from the is that her anxiety escalates that she denies any emotional affect with her freezing, but that she will start moaning, and part of this is her needing more assistance at any point in time that she freezes. This is not only with walking, can be with positioning or sitting in a chair, and was witnessed several times by myself throughout the visit. Other patient symptom burden feels her depression is currently managed by her Effexor, her restless leg syndrome is better with adjustment of the rope and I will, she does have a dry consistent cough which is back at baseline versus with her flu, and her pain is improved though when it does exacerbate it is mostly in her lower back, in her pelvis and left hip area, and bilateral knee discomfort. She is taking Mycelex oxycodone, only at bedtime, and has been unable to tolerate NSAIDs because of her reflux. She is using intermittent acetaminophen only. Social History - Living Situation Living arrangement: At home Living Situation: With spouse/s.o. (Her Bill is needing to be on almost 24 7, they do have 15 hours a week of lola caregiving. He demonstrates severe caregiver fatigue and is much discouraged by her ongoing deterioration) Medications/Allergies - Medications Home Medications: Ambulatory Orders Medication Instructions Recorded Confirmed Omeprazole [PriLOSEC] 20 mg PO DAILY 02/17/17 11/19/17 Oxybutynin Chloride [Ditropan Xl] 15 mg PO DAILY 02/17/17 11/19/17 Ropinirole HCl 3 mg PO .1300 2000 02/17/17 11/19/17 Ropinirole HCl 4 mg PO QDBREAKFAST 02/17/17 11/19/17 Senna [Senokot] 17.2 mg PO QPM PRN 02/17/17 11/19/17 Venlafaxine [Effexor] 37.5 mg PO QPM 02/17/17 11/19/17 Acetaminophen 500 mg PO PRN PRN 07/24/17 11/19/17 Trihexyphenidyl HCl 2 mg PO TID 07/24/17 11/19/17 oxyCODONE/ACET 5/325 [Percocet 5 0.5 - 1 each PO PRN PRN 07/24/17 11/19/17 mg/325 mg] Carbidopa/Levodopa [Rytary ER 1 tab PO BID 09/03/17 11/19/17 23.75 mg-95 mg Cap] - Allergies Allergies/Adverse Reactions: Allergies Allergy/AdvReac Type Severity Reaction Status Date / Time No Known Drug Allergies Allergy Verified 06/01/17 17:50 Review of Systems - Constitutional Constitutional: reports: Fatigue, Weight gain - Eyes Eyes: reports: Vision loss, Corrective lenses - Ears, Nose & Throat Ears, Nose & Throat: reports: Dental decay - Cardiovascular Cardiovascular: reports: Decr. exercise tolerance - Respiratory Respiratory: reports: Cough (dry baseline; had been ill for 2 weeks with flu) - Gastrointestinal Gastrointestinal: reports: Good appetite. denies: Abdominal pain, Constipation , Diarrhea, Reflux/heartburn - Genitourinary Genitourinary: reports: Incontinence (mild) - Musculoskeletal Musculoskeletal: reports: Back pain, Muscle aches, Stiffness, Limited range of motion, Muscle weakness, Joint pain (reports right ankle sprain; feels this is from "torking" with freezing and transfers; has brace but not wearing), Transfer issues (freezing with transfers), Other (severe dyskinesias; vermis- type neck and trunk movement;) - Integumentary Integumentary: reports: Dryness - Neurological Neurological: reports: Memory problems, Other (soft speech; more difficult to understand) - Psychiatric Psychiatric: reports: Depression (controlled), Anxiety (escalating) - Endocrine Endocrine: denies: Diabetes type 2, Hypothyroidism - Hematologic/Lymphatic Hematologic/Lymphatic: reports: Recurrent infections (recent flu) - All Other Systems All Other Systems: reports: Reviewed and negative Physical Exam - Vital Signs Temperature: 98.6 C Pulse Rate: 82 Respiratory Rate: 18 O2 Saturation: 96 (ra @ rest) Blood Pressure: 152/82 - Physical Exam General Appearance: positive: Mild distress, Anxious Eyes Bilateral: positive: Conjunctivae nml ENT: positive: No signs of dehydration Neck: positive: No JVD, Trachea midline, Stiff neck Cardiovascular: positive: Regular rate & rhythm Respiratory: positive: Breath sounds nml Abdomen: positive: Soft, Nml bowel sounds Skin: positive: Dryness Extremities: positive: No pedal edema Neurologic/Psychiatric: positive: Oriented x3, Weakness, Slurred/abnml speech, Flat affect, Other Palliative Care - POLST Patient has POLST: Yes POLST Status: DNR, Selective Treatment Pain: Pain improved, Location (RLS improved; lower back pain and bilateral knee ; right rib pain resolved) Tiredness/Fatigue: Moderate (4-6) Drowsiness/Sedation: None Nausea: None Depression: Mild (1-3) Anxiety: Moderate (4-6) Dyspnea: None Anorexia: None Sleep: Sleeps well Constipation: No, Managed (not needing bowel medications currently; less oozing) Feelings of wellbeing/Perceived Quality of Life: Fair, Acceptable, Worsening Performance Status: Patient needing total assist now for any ambulation as far as cueing And contact assist. She is dependent for bathing, she is able to self-feed she has gotten some adaptive equipment. She is at high risk for falls, she has been recommended to not use rolling chair to the kitchen table as well as modify the environment more. She remains quite resistant to this. She has declined over the last 6-8 weeks since I have seen her. - Palliative Care Discussion: Patient does have follow-up appointment with Dr. Jairo Cartagena at the [facility] next week 11/23. feels like patient has deteriorated on current new medication regimen with Rytary, we did discuss though patient was declining previous to this, which is why she initiated the original appointment. Though both he and she do admit to the medication has not improved symptoms, and there is concern for worsening symptoms as part of the disease process. There is quite a bit of tension with patient's increased care needs between the two of them, her impulsivity, and noted husbands caregiver fatigue. Patient has not presented with any episodes of aspiration pneumonia, weight loss, difficulties with swallowing. Her biggest risk for impact on prognosis is the sequela of a fall. She has had fewer noted with caregiver training, as well as improved balance with PT intervention. But concern relating her impulsivity, continued freezing, heightened this risk. Patient's anxiety though she declines it is related to her emotional response, does appear to be somewhat fear based as she becomes more dependent on her caregivers for assistance. She reports her depression is improved, she continues to remain quite isolated, but does enjoy a caregiver support from the outside. Impression and Recommendations - Palliative Care Impression: This is an impulsive and feisty 67-year-old woman with advanced Parkinson's, she presents today with increased freezing, tremors, noted functional and mild cognitive decline. She has benefited from home health rehab support, and lola caregiving, but has been does present with caregiver fatigue. Palliative care support for both patient and family to continue for symptom management and psychosocial counseling. Recommendations/Counseling Done: 1. Advanced Parkinson's. Patient is due to follow-up with Dr. Jairo Cartagena next week, my recommendation would be to trial back on her extended release carbidopa levodopa for at least 2 weeks, perception of both myself, and this patient's symptoms worsened with switching to Rytary. Did reiterate though with , patient has been on downward course, and this may or may not be attributed to medication changes. Patient wanting to restart amantadine, requested she follow-up with Dr. Cartagena first before revisit. Is benefiting from rehab team support, patient somewhat resistant to changes in recommendations, but does have improved balance and strength. Will follow up with physical therapy for car transfers training with impending physician appointment. 2. Constipation. Patient currently not using oxycodone, she is not needing bowel meds at this point in time. Reports this is eased to the stress between her and her has her management of her bowel meds are better. 3. Depression. Patient reports depressive symptoms are currently controlled on dosing of Effexor, discussed possible titration up to address escalating anxiety, would like to hold off though until Parkinson's meds are adjusted. Counseling to normalize current grief and loss process regarding her disease process. 4. Advanced care planning. Goal is to keep patient in her own home for as long as possible, has been though does demonstrate severe caregiver fatigue. Will follow up with lola animal husbandry manager to reevaluate for increased caregiving hours.Encouraged to write out list for pending appointment, patient with many questions regarding her prognosis, expected decline, and medication management. CC: Home Health CC: Dr. Jairo Cartagena fax [phone] Time Spent: 45 minutes with greater than 50% of this done in counseling regarding disease management, escalating tension, grief and loss, and anticipatory guidance.
== END 2017-11-18 15:01 | disposition home or self-care (01) ==
LOC: PC 15:00
PROVIDERS: ATTEND Nurse Practitioner Adult Health
DX: Z51.5 Encounter for palliative care (principal); G20 Parkinson's disease; F32.9 Major depressive disorder, single episode, unspecified; G24.9 Dystonia, unspecified; F41.9 Anxiety disorder, unspecified; G25.81 Restless legs syndrome; Z79.891 Long term (current) use of opiate analgesic; M62.81 Muscle weakness (generalized); R41.89 Other symptoms and signs involving cognitive functions and awareness; Z91.81 History of falling; Z66 Do not resuscitate
CPT/HCPCS: 99349

== ENCOUNTER 2018-03-02 17:30 | Outpatient (CLI) | payer MEDICARE, OTHER, MEDICAID | END 2018-03-02 17:31 | disposition critical access hospital (66) | LOC: EMS 17:30 | PROVIDERS: ATTEND Surgery | DX: M25.559 Pain in unspecified hip (principal); M54.9 Dorsalgia, unspecified | CPT/HCPCS: A0425; A0429 ==

== ENCOUNTER 2018-03-02 17:54 | Emergency (ER) | payer MEDICARE, OTHER, MEDICAID ==
[2018-03-02] MEDS ORDERED: MELOXICAM 7.5 MG TABLET PO STA (18:02)
[2018-03-02] MEDS ORDERED: oxyCODONE 5 MG TABLET PO STA (18:02)
--- NOTE | 2018-03-02 18:04 | ED Physician Documentation ---
PD HPI BACK PAIN - Stated complaint Stated Complaint: HIP PX - History obtained from History obtained from: Patient, Family, EMS - History of Present Illness Timing - onset: Other (This is a 68-year-old woman with history of Parkinson's and chronic lumbar back pain who presents with a couple days worth of right low back pain radiating into the right hip without weakness, numbness, or tingling or saddle anesthesia or fevers. She attributes it sleeping in a bed, prior to that was on and off sleeping in a lift chair which she feels better for her back. She takes oxycodone routinely, only at night and had not really for this because it makes her sleepy.) Review of Systems Constitutional: denies: Fever, Chills GI: denies: Abdominal Pain, Nausea, Vomiting, Diarrhea : denies: Dysuria, Frequency, Hesitancy PD PAST MEDICAL HISTORY - Past Medical History Respiratory: Other Musculoskeletal: Osteoarthritis, Scoliosis, Chronic back pain - Past Surgical History Past Surgical History: Yes General: Cholecystectomy Ortho: Other /[employer]: Hysterectomy - Present Medications Home Medications: Ambulatory Orders Medication Instructions Recorded Confirmed Omeprazole [PriLOSEC] 20 mg PO DAILY 02/17/17 11/19/17 Oxybutynin Chloride [Ditropan Xl] 15 mg PO DAILY 02/17/17 11/19/17 Ropinirole HCl 3 mg PO .1300 2000 02/17/17 11/19/17 Ropinirole HCl 4 mg PO QDBREAKFAST 02/17/17 11/19/17 Senna [Senokot] 17.2 mg PO QPM PRN 02/17/17 11/19/17 Venlafaxine [Effexor] 37.5 mg PO QPM 02/17/17 11/19/17 Acetaminophen 500 mg PO PRN PRN 07/24/17 11/19/17 Trihexyphenidyl HCl 2 mg PO TID 07/24/17 11/19/17 oxyCODONE/ACET 5/325 [Percocet 5 0.5 - 1 each PO PRN PRN 07/24/17 11/19/17 mg/325 mg] Carbidopa/Levodopa [Rytary ER 1 tab PO BID 09/03/17 11/19/17 23.75 mg-95 mg Cap] Meloxicam [Mobic] 7.5 mg PO BIDWM PRN #15 tablet 03/02/18 - Allergies Allergies/Adverse Reactions: Allergies Allergy/AdvReac Type Severity Reaction Status Date / Time No Known Drug Allergies Allergy Verified 06/01/17 17:50 - Social History Does the pt smoke?: No Smoking Status: Never smoker Does the pt drink ETOH?: No Does the pt have substance abuse?: No - Immunizations Immunizations are current?: Yes - POLST Patient has POLST: Yes PD ED PE NORMAL - Vitals Vital signs reviewed: Yes - General General: Alert and oriented X 3, Other (Parkinsonian tremor) - Cardiac Cardiac: RRR, No murmur - Respiratory Respiratory: No respiratory distress, Clear bilaterally - Abdomen Abdomen: Normal bowel sounds, Soft, Non tender - Back Back: Other (No lumbar spine tenderness, she is tender over the right hemipelvis , and ASIS. She has pain with flexion of the right hip but not with internal or external rotation. The patient has equal and normal Achilles and patellar reflexes bilaterally. Normal sensation in all areas of the legs. Patient denies saddle anesthesia. Normal strength in flexion-extension at the ankles, knees, and flexion of the hips.) - Neuro Neuro: Alert and oriented X 3, Normal speech Results - Vitals Vitals: Vital Signs - 24 hr 03/02/18 03/02/18 17:58 20:06 Temperature 36.5 C Heart Rate 81 72 Respiratory 18 18 Rate Blood Pressure 176/78 H 147/76 H O2 Saturation 100 100 Oxygen O2 Source Room air - Rads (name of study) L spine and R Hips XRs Radiology: EMP read contemporaneously (Degenerative disease, nothing acute and an old right pelvic fracture.) PD MEDICAL DECISION MAKING - ED course ED course: 68-year-old woman with presents with what seems like musculoskeletal back and hip pain. After the administration of oxycodone and meloxicam she was pain- free and passed a road test here with negative x-rays except for chronic findings. - Sepsis Event Vital Signs: Vital Signs - 24 hr 18 03/02/18 17:58 20:06 Temperature 36.5 C Heart Rate 81 72 Respiratory 18 18 Rate Blood Pressure 176/78 H 147/76 H O2 Saturation 100 100 Oxygen O2 Source Room air Departure - Departure Disposition: 01 Home, Self Care Clinical Impression: Right hip pain Back pain Qualifiers: Back pain location: low back pain Chronicity: acute Back pain laterality: right Sciatica presence: without sciatica Qualified Code(s): M54.5 - Low back pain Condition: Good Record reviewed to determine appropriate education?: Yes Instructions: ED Low Back Pain Injury Prescriptions: Meloxicam [Mobic] 7.5 mg PO BIDWM PRN #15 tablet PRN Reason: Pain Comments: Call your doctor to arrange a follow-up appointment, make the next available appointment. In the interim, return anytime if worse or if new symptoms develop. Your blood pressure was elevated today on check into the emergency department. This does not mean that you have hypertension, it is a common phenomenon to come to the emergency department and have elevated blood pressure. I recommend that you see your primary care physician within the week to have it rechecked when you are feeling better. Discharge Date/Time: 03/02/18 20:12
--- NOTE | 2018-03-02 18:46 | XRAY Report ---
Procedure Date: 03/02/2018 Accession Number: [id number] / [id number] Procedure: XR - Hip w/Pelvis 2-3V RT CPT Code: FULL RESULT: EXAM: RIGHT HIP AND PELVIS RADIOGRAPHY EXAM DATE: 03/02/2018 06:31 PM. HISTORY: Back and right hip pain for 2 weeks. COMPARISONS: None. TECHNIQUE: 1 view of the pelvis and 1 view of the hip. FINDINGS: Bones: Old right obturator ring fracture deformity. No acute traumatic or destructive bone abnormalities. Joints: The bilateral hip, pubis symphysis, and sacroiliac joints are preserved. Soft Tissues: Unremarkable. IMPRESSION: No acute bony abnormality, noting old right obturator ring fracture deformity. RADIA
--- NOTE | 2018-03-02 18:48 | XRAY Report ---
Procedure Date: 03/02/2018 Accession Number: [id number] / [id number] Procedure: XR - Lumbar Spine 2 View CPT Code: FULL RESULT: EXAM: LUMBOSACRAL SPINE RADIOGRAPHY EXAM DATE: 03/02/2018 06:34 PM. CLINICAL HISTORY: Back and right hip pain. COMPARISONS: None. TECHNIQUE: 3 views. FINDINGS: Alignment: Mild levoscoliosis. 4 mm L2-L3 retrolisthesis. Bones: Five [id number] lumbar vertebral bodies are present. No fractures or bone lesions. Disks: Advanced degenerative disk space narrowing throughout the lumbar spine. Sacroiliac Joints: Unremarkable. Soft Tissues: Normal. The visualized bowel gas pattern is normal. IMPRESSION: Levoscoliosis, with advanced degenerative disk disease throughout the lumbar spine. RADIA
[2018-03-02 20:07] VITALS: BP 147/76
== END 2018-03-02 20:12 | disposition home or self-care (01) ==
LOC: EDUNIT# → ED 17:54
DX: M25.551 Pain in right hip (principal); M54.5 Low back pain; G20 Parkinson's disease; R03.0 Elevated blood-pressure reading, without diagnosis of hypertension; Z79.891 Long term (current) use of opiate analgesic
CPT/HCPCS: 72100; 73502; 99283; A9270

== ENCOUNTER 2018-03-11 15:05 | Outpatient (CLI) | payer MEDICARE, OTHER, MEDICAID ==
--- NOTE | 2018-03-11 15:14 | CONSULTATION NOTE ---
Palliative Care Follow Up - Referral Referring Provider: Dr. Alec Aguilar Time of Visit: [phone] Referral setting: Home (Is a taxing considerable effort for the patient leave the home secondary to her dyskinesias.) Referral Reason: Advanced Parkinson's - Information Sources Records reviewed: Previous records reviewed History/Review of Systems obtained from: Patient, Family (follow up with Bill end of visit), Caregiver (Pia at end of visit/ [facility] caregiver 100 hours/month) Exam limitations: Clinical condition (patient with some STM issues;) - History of Present Illness Update Brief HPI Update: This is a spunky 68-year-old woman with advanced Parkinson disease who suffers with severe dyskinesias, poor truncal strength with leaning to the right, 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 She has had her medications adjusted by Dr. Cartagena, and movement and physiatry specialist. She does note just mild improvement, but is still significant and her underlying disease process. She has had some weight loss, but this is intentional as she had previously weight gain. She remains quite independent, at high risk for sequela from a fall, with the goal to remain at home for as long as possible. Palliative care seen patient for symptom burden. Patient does have chronic underlying back pain, severe callus on her right foot impacting her already impaired balance, suspect this may have had some implication for her exacerbation of her right hip pain, her x-rays were negative. She did respond to the meloxicam but is finished with this, her pain has improved. She usually has her callus shaved every 6 weeks and it has been since October. She feels her depression is currently controlled on her Effexor 37.5 mg, she has titrated off this before with resulting increased tearfulness and depressive symptoms, does feel she is still benefiting. Her most distressing symptom has been disease-related regarding her freezing, she gets distressed when she "gets stuck a lot", he feels this leads to falls, she does not know if is a freezing of her anxiety regarding this. There continues to be significant amount caregiver distress, this is related to her impulsivity and her frequent falls. Social History - Living Situation Living arrangement: At home Living Situation: With spouse/s.o. (Patient up 3-4 times a night, is unable to assist herself this causing distress for her . They do have caregiving several hours during her "freeze time" 2-6 PM, does assist with dinner prep and household tasks and takes patient to appointments as required) Medications/Allergies - Medications Home Medications: Ambulatory Orders Medication Instructions Recorded Confirmed Omeprazole [PriLOSEC] 20 mg PO DAILY 02/17/17 03/11/18 Oxybutynin Chloride [Ditropan Xl] 15 mg PO DAILY 02/17/17 03/11/18 Ropinirole HCl 3 mg PO .1300 2000 02/17/17 03/11/18 Ropinirole HCl 4 mg PO QDBREAKFAST 02/17/17 03/11/18 Senna [Senokot] 17.2 mg PO QPM PRN 02/17/17 03/11/18 Trihexyphenidyl HCl 2 mg PO TID 07/24/17 03/11/18 oxyCODONE/ACET 5/325 [Percocet 5 0.5 - 1 each PO PRN PRN 07/24/17 03/11/18 mg/325 mg] Amantadine HCl [Gocovri] 137 mg PO DAILY 03/11/18 03/11/18 Carbidopa/Levodopa [Rytary ER 1 cap PO BID 03/11/18 03/11/18 23.75 mg-95 mg Cap] Venlafaxine [Effexor] 37.5 mg PO QPM #30 tablet 03/11/18 03/11/18 - Allergies Allergies/Adverse Reactions: Allergies Allergy/AdvReac Type Severity Reaction Status Date / Time No Known Drug Allergies Allergy Verified 06/01/17 17:50 Review of Systems - Constitutional Constitutional: reports: Fatigue, Weight loss (intentional at 163). denies: Fever, Chills - Eyes Eyes: reports: Vision loss, Corrective lenses - Ears, Nose & Throat Ears, Nose & Throat: reports: Postnasal drainage, Dry mouth - Cardiovascular Cardiovascular: reports: Decr. exercise tolerance (has not continued with exercises) - Respiratory Respiratory: denies: SOB at rest - Gastrointestinal Gastrointestinal: reports: Good appetite. denies: Constipation (goes every 2-3 days), Nausea, Reflux/heartburn (no recurrence with short course of mobic) - Genitourinary Genitourinary: reports: Urgency, Incontinence (occasional) - Musculoskeletal Musculoskeletal: reports: Back pain, Muscle aches, Stiffness, Limited range of motion, Muscle weakness, Other (severe dyskinesthias; worse in afternoon or if over tired) Physical Exam - Vital Signs Temperature: 96.7 C Pulse Rate: 67 Respiratory Rate: 18 O2 Saturation: 95 (ra @ rest) Blood Pressure: 98/62 - Physical Exam General Appearance: positive: No acute distress, Anxious Eyes Bilateral: positive: Normal inspection ENT: positive: Pharynx nml Neck: positive: No JVD, Trachea midline Cardiovascular: positive: Regular rate & rhythm Respiratory: positive: No respiratory distress Abdomen: positive: Non-tender, Soft Skin: positive: Pallor Neurologic/Psychiatric: positive: Oriented x3, Mood/affect nml, Other (voice quiet) Palliative Care - POLST Patient has POLST: Yes POLST Status: DNR, Selective Treatment Pain: Pain improved, Location (right hip; better relief with ice; chronic back pain using oxcodone at night for discomfort/to able to sleep) Tiredness/Fatigue: Moderate (4-6) Drowsiness/Sedation: Mild (1-3) Nausea: None Depression: Mild (1-3) Anxiety: Moderate (4-6) Dyspnea: None Anorexia: None Sleep: Variable sleep pattern Constipation: Yes, Opoid induced Feelings of wellbeing/Perceived Quality of Life: Good, Acceptable, No change Performance Status: Patient needs assistance with bathing, Bill her is doing this. Junie worker does provide assistance with household tasks, plans to assist with exercises, provides companionship and support. Patient does ambulate in house, her balance is quite poor, she does have intermittent freezing which provides her much frustration and limits her independence at times. She is still able to independently feed himself. - Palliative Care Discussion: Patient does feel currently her quality of life is okay, she does find me things about her illness frustrating. She has set a goal to go camping in April, she figures she is in a holding pattern. She has had some slight improvement with Dr. Cartagena medication adjustments. She does have a IVETTE ST in place, she does not see herself as eminently declining, she wants to remain as independent as possible. Had separate conversation with , he is exhibiting signs of caregiver fatigue, her impulsivity and time up at night do wear on him. The [facility] program has helped him tremendously, he does leave the home during that time, but wonders how long he can be a primary caregiver if her care needs increase. He is quite dedicated to her, does report she has been more irritable and difficult at times, his biggest perception as far as alteration in her cognitive is her escalating anxiety. Impression and Recommendations - Palliative Care Impression: This is an impulsive and feisty 68-year-old woman with advanced Parkinson's, her recent medication adjustments have made some improvement with her freezing, though she still remains at high risk for fall and has significant balance issues. Patient with low symptom burden, does present with increased anxiety. Her is exhibiting signs of caregiver fatigue. Palliative care support for both patient and family continued to focus on symptom management and anticipatory guidance. Recommendations/Counseling Done: 1. Advanced Parkinson's. Patient has been started on GOCOVRI time-released amantadine, she has been on amantadine before in the past with good support. She is tolerating the Rytary, 1 capsule twice daily, she still has freezing mostly from 2 to 6 PM during the day, overall has seen some slight improvements. She does report less falls, she does perceive herself is weaker, getting more difficult to get from sitting to standing. She reports some word finding but no other cognitive changes from her last visit. She has completed her home health therapies, did find that somewhat overwhelming with multiple people coming and going. She has not continued on her exercise program. We did discuss in the context of support to continue with her exercises, her junie caregiver Pia and her are going to start doing them together on a daily basis , counseling regarding the benefits given her high risk for falls, and support to keep her independent as long as possible. Did offer a prescription for outpatient services if would like to continue. 2. Weight loss. This is intentional patient has cut out sweets, she has gotten down to 163. We discussed healthy eating is a good strategy and her ideal weight would be good requested she not lose more than another 5 pounds, as she does have a propensity in the future to lose ability to swallow and would like her not to be too thin. Reviewed healthy choices and nutritional counseling provided. 3. Depression. Patient reports depressive symptoms are currently controlled on dosing of Effexor, has been does perceive patient's anxiety is escalating, may need increased dosing. Patient still having her Parkinson's meds titrated, will defer for another few weeks. 4. Advanced care planning. Goal is to keep patient in her own home as long as possible, though her does exhibit caregiver fatigue. Reports when up at night it decreases his patients with her impulsivity and irritability at times. Remains very caring and concerned. Time Spent: 45 minutes with greater than 50% of this done in counseling regarding depression , caregiver fatigue, review of the new medications and anticipatory guidance. Counseling on healthy lifestyle for diet/nutrition and increased activity.
== END 2018-03-11 15:06 | disposition home or self-care (01) ==
LOC: PC 15:05
PROVIDERS: ATTEND Nurse Practitioner Adult Health
DX: Z51.5 Encounter for palliative care (principal); G20 Parkinson's disease; Z91.81 History of falling; M54.9 Dorsalgia, unspecified; L84 Corns and callosities; M25.551 Pain in right hip; F32.9 Major depressive disorder, single episode, unspecified; Z79.899 Other long term (current) drug therapy; Z79.891 Long term (current) use of opiate analgesic; Z66 Do not resuscitate; F41.9 Anxiety disorder, unspecified; R41.3 Other amnesia
CPT/HCPCS: 99349

== ENCOUNTER 2018-04-28 13:30 | Outpatient (CLI) | payer MEDICARE, OTHER, MEDICAID ==
--- NOTE | 2018-04-28 17:47 | CONSULTATION NOTE ---
Palliative Care Follow Up - Referral Referring Provider: Dr. Alec Aguilar Time of Visit: 0464-4410 Referral setting: Home (It is a taxing considerable effort for the patient leave the home given her severe dyskinesias from her Parkinson's. 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 She has had some more weight loss, she has lost 4 pounds since our last visit. She denies any early satiety, and she reports they eat a lot of processed and delivered food, she attributes to less snacks. She does admit to increased difficulty with facilitating food to her mouth, but denies any choking, or significant decrease in caloric intake. She describes her fluctuating dyskinesias as most problematic early afternoon after she is taking her medications, her best time is between dinner at midnight. Reports episodes of freezing happened particularly when people try to help her, it is very difficult to be around her as she looks like she is going to fall and quite unbalanced. Patient being seen by palliative care for symptom burden, she still has some residual right hip pain, this is most often exacerbated with standing. Denies any pain at rest. She reports she has had increased back pain since she is no longer sleeping on the couch, she is sleeping in her bed per her 's request. She does take one half to one oxycodone at night with good relief and inability to sleep. She denies constipation, any symptoms of GERD, he does report she has having increased frustration with her limitations and gets quite irritable with this. She denies any sustained or perseverative depressive symptoms, and does enjoy her caregivers who come. She denies short-term memory issues mostly focused on word finding. Her reports her cognition is fluctuating, mostly time she is clear but can get easily confused. Patient currently focused on getting a small scooter chair called a zinger. It wants to know if her life expectancy is such that she will benefit from it. Social History - Living Situation Living arrangement: At home Living Situation: With spouse/s.o. Support System: Patient is getting [employer] support about 100 hours a week, she has 2 alternating caregivers which she does find am quite helpful not only for assistance but for socialization. She does have a daughter who she stays in contact with, but is not as involved in her care as has been in the past Medications/Allergies - Medications Home Medications: Ambulatory Orders Medication Instructions Recorded Confirmed Omeprazole [PriLOSEC] 20 mg PO DAILY 02/17/17 04/28/18 Oxybutynin Chloride [Ditropan Xl] 15 mg PO DAILY 02/17/17 04/28/18 Ropinirole HCl 3 mg PO .1300 2000 02/17/17 04/28/18 Ropinirole HCl 4 mg PO QDBREAKFAST 02/17/17 04/28/18 Senna [Senokot] 17.2 mg PO QPM PRN 02/17/17 04/28/18 Trihexyphenidyl HCl 2 mg PO TID 07/24/17 04/28/18 oxyCODONE/ACET 5/325 [Percocet 5 0.5 - 1 each PO PRN PRN 07/24/17 04/28/18 mg/325 mg] Amantadine HCl [Gocovri] 137 mg PO DAILY 03/11/18 04/28/18 Carbidopa/Levodopa [Rytary ER 1 cap PO BID 03/11/18 04/28/18 23.75 mg-95 mg Cap] Venlafaxine [Effexor] 37.5 mg PO QPM #30 tablet 03/11/18 04/28/18 - Allergies Allergies/Adverse Reactions: Allergies Allergy/AdvReac Type Severity Reaction Status Date / Time No Known Drug Allergies Allergy Verified 06/01/17 17:50 Review of Systems - Constitutional Constitutional: reports: Fatigue, Weight loss (159). denies: Fever, Chills - Eyes Eyes: reports: Vision loss, Corrective lenses - Ears, Nose & Throat Ears, Nose & Throat: reports: Nasal congestion, Dental decay, Dry mouth - Cardiovascular Cardiovascular: denies: Chest pain, Edema - Respiratory Respiratory: denies: Cough, SOB at rest - Gastrointestinal Gastrointestinal: reports: Good appetite. denies: Constipation, Nausea - Genitourinary Genitourinary: reports: Urgency, Incontinence - Musculoskeletal Musculoskeletal: reports: Back pain, Stiffness, Limited range of motion, Muscle weakness, Other (frequent falls per ; she reports she "sits" when looses balance; few bruises but no acute trauma or ED visits since last visit) - Integumentary Integumentary: reports: Rash (mild roughness right arm; attributes to amantadine ), Other (severe callous on right foot getting addressed by custom car builder) - Neurological Neurological: reports: General weakness, Memory problems, Incoordination, Slurred speech - Psychiatric Psychiatric: reports: Depression (controlled on current dosing;), Hallucinations (occasionally sees cats/or shapes) - Hematologic/Lymphatic Hematologic/Lymphatic: denies: Recurrent infections - All Other Systems All Other Systems: reports: Reviewed and negative Physical Exam - Vital Signs Temperature: 97.4 C Pulse Rate: 88 Respiratory Rate: 18 O2 Saturation: 94 (ra @ rest) Blood Pressure: 102/54 - Physical Exam General Appearance: positive: No acute distress Eyes Bilateral: positive: Normal inspection ENT: positive: No signs of dehydration, Other (poor dentition) Neck: positive: No JVD, Trachea midline Cardiovascular: positive: Regular rate & rhythm Respiratory: positive: No respiratory distress, Breath sounds nml Abdomen: positive: Non-tender, Soft, Nml bowel sounds Skin: positive: Pallor, Dryness Extremities: positive: No pedal edema, Other (severe dyskinesias through most of visit; arms/legs including head and tongue some) Neurologic/Psychiatric: positive: Oriented x3, Mood/affect nml, Slurred/abnml speech Palliative Care - POLST Patient has POLST: Yes POLST Status: DNR, Selective Treatment Pain: Pain unchanged Tiredness/Fatigue: Moderate (4-6) Drowsiness/Sedation: Mild (1-3) Nausea: None Depression: Mild (1-3) Anxiety: Mild (1-3) Dyspnea: None Anorexia: None Sleep: Sleeps well Constipation: No Feelings of wellbeing/Perceived Quality of Life: Fair, Acceptable Performance Status: Patient gets frustrated when she needs increased help particular around toileting. She does have caregivers who assists with meal prep, socialization, and small household tasks. Has been continues to bathe her. Patient is ambulatory depending on her fluctuating dyskinesias within the house, she can be quite impulsive putting herself at high risk for falls - Palliative Care Discussion: Patient wanting to order small zinger motorized wheelchair. She does not want to do it if her life expectancy is less than a couple years. Patient has had some weight loss, but nothing acute and not related to choking or dysphagia. Patient has not had recurrent infections. Patient's highest risk is actually following in the sequela of an event such as intracranial bleed or broken bones. Actually having away for her to limit her walking around the house, and increase her independence, may actually decrease her risk. We discussed the normal course and decline of Parkinson's in the context of the above, she found this helpful information and she does recognize her risk is falls as well though she tends not to mitigate this often. She and her continued to struggle with her advancing disease. She feels like she would like to get out more and socialize, but her is embarrassed. [place] and she found this quite stimulating. She also though gets quite frustrated and upset when she experiences some the consequences of her disease, including "messy eating", as well as needing more help. She reports she can get overwhelmed and start crying. Counseling regarding the normalized grief response, patient does not have persistent or dark feelings or persistent depressive feelings this is intermittent and often in the context of what she is trying to accomplish. They are getting ready to go camping for a few days, post are looking forward to having a break from their normal routine, [place] It has given them both something to look forward to and work on. Impression and Recommendations - Palliative Care Impression: This is a 68-year-old woman who continues to struggle with the reality of living with her advanced Parkinson's. She still remains at high risk for fall and has significant balance issues as well as impulsivity. Palliative care continues to provide support for both patient and family focusing on symptom management anticipatory guidance. Recommendations/Counseling Done: 1. Advanced Parkinson's. Patient continues with fairly significant dyskinesias , she is working with Dr. Cartagena on her medications, has not been consistent in following through on her exercise program. She is looking at a motorized small wheelchair, to use in the house. This would increase her independence and decrease her fall risk, encouraged her to continue to evaluate this. Did recommend to make sure follow-up on return policy, in case it is not a good fit. 2. Depression. Patient does express frustrations at limitations, expressing normal grief and loss issues. Patient does have also underlying anxiety, patient may benefit from an increase in her Effexor. Will evaluate this at next visit given she is getting ready to go on vacation. She does not perceive it problematic at this point in time 3. Advanced care planning. Goal is to continue to keep patient in her home as long as possible, they do have caregiving support, but has been does get quite fatigued. Counseling done regarding progression of disease in the context of her questions and planning in the future. Time Spent: 45 minutes with getting 50% of this done in counseling regarding anticipatory guidance, management of pain and symptoms as well as evaluating depression and anxiety. Palliative care to follow-up in 6-7 weeks, they will call if more urgent matters or symptoms recur
== END 2018-04-28 13:31 | disposition home or self-care (01) ==
LOC: PC 13:30
PROVIDERS: ATTEND Nurse Practitioner Adult Health
DX: Z51.5 Encounter for palliative care (principal); G20 Parkinson's disease; F32.9 Major depressive disorder, single episode, unspecified; G24.9 Dystonia, unspecified; G31.84 Mild cognitive impairment of uncertain or unknown etiology; M62.81 Muscle weakness (generalized); R44.1 Visual hallucinations; Z66 Do not resuscitate; Z91.81 History of falling
CPT/HCPCS: 99349

== ENCOUNTER 2018-06-09 13:15 | Outpatient (CLI) | payer MEDICARE, OTHER, MEDICAID ==
--- NOTE | 2018-06-09 20:27 | CONSULTATION NOTE ---
Palliative Care Follow Up - Referral Referring Provider: Dr. Alec Aguilar Time of Visit: [id number] Referral setting: Home (It is a taxing considerable effort for the patient to leave the home secondary to her dyskinesias and fatigue related to advanced Parkinson's. Patient seen in the home setting to chest treatment plan and provide family counseling.) Referral Reason: Anxiety/Depression / advanced Parkinsons - Information Sources Records reviewed: Previous records reviewed History/Review of Systems obtained from: Patient, Family ( present briefly) Exam limitations: No limitations - History of Present Illness Update Brief HPI Update: This is a spunky 85-year-old woman with advanced Parkinson who suffers from severe dyskinesias, poor truncal strength with leaning to the right, mild cognitive impairment resulting in impulsivity, and is currently maximally managed on her Parkinson's meds.She reports she is having 1 of her bad fall days, where she spends most of the day on the couch. She has recently obtained power wheelchair, that she can use in the home called a "zinger". They still have not made their home accessible with clearing pathways.She did call me last week with increase concerns regarding her "anxiety attacks". She describes these as being intolerant of when things do not go right, she gets quite upset, she is having increased fear of falling, and we had increased her Effexor from 37.5 mg to 75 mg she does feel like this has improved the severity of the attacks. Social History - Living Situation Living arrangement: At home Living Situation: With spouse/s.o. Support System: Patient does have lola caregivers several times a week, for a few hours, this does help manage the household and assist with ADLs as well as diminishes her isolation and provides her companionship Medications/Allergies - Medications Home Medications: Ambulatory Orders Medication Instructions Recorded Confirmed Omeprazole [PriLOSEC] 20 mg PO DAILY 02/17/17 06/09/18 Oxybutynin Chloride [Ditropan Xl] 15 mg PO DAILY 02/17/17 06/09/18 Ropinirole HCl 3 mg PO .1300 2000 02/17/17 06/09/18 Ropinirole HCl 4 mg PO QDBREAKFAST 02/17/17 06/09/18 Senna [Senokot] 17.2 mg PO QPM PRN 02/17/17 06/09/18 Trihexyphenidyl HCl 2 mg PO TID 07/24/17 06/09/18 oxyCODONE/ACET 5/325 [Percocet 5 0.5 - 1 each PO PRN PRN 07/24/17 06/09/18 mg/325 mg] Amantadine HCl [Gocovri] 137 mg PO DAILY 03/11/18 06/09/18 Carbidopa/Levodopa [Rytary ER 1 cap PO BID 03/11/18 06/09/18 23.75 mg-95 mg Cap] Meloxicam [Mobic] 7.5 mg PO BID 06/09/18 06/09/18 Venlafaxine [Effexor] 75 mg PO QPM 06/09/18 06/09/18 - Allergies Allergies/Adverse Reactions: Allergies Allergy/AdvReac Type Severity Reaction Status Date / Time No Known Drug Allergies Allergy Verified 06/01/17 17:50 Review of Systems - Constitutional Constitutional: reports: Fatigue, Weight stable (159). denies: Fever, Chills - Eyes Eyes: reports: Vision loss, Corrective lenses - Ears, Nose & Throat Ears, Nose & Throat: reports: Dental decay, Dry mouth, Other (more difficulty with eating; missing her mouth to the right) - Cardiovascular Cardiovascular: reports: Decr. exercise tolerance - Respiratory Respiratory: denies: Cough - Gastrointestinal Gastrointestinal: reports: Good appetite. denies: Constipation, Reflux/heartburn - Genitourinary Genitourinary: reports: Frequency, Incontinence (mild) - Musculoskeletal Musculoskeletal: reports: Stiffness, Limited range of motion, Muscle weakness, Joint pain (Mild bilateral hip pain and rib pain doing much better on Mobic 7.5 mg twice daily), Other (Patient has severe dyskinesias at fluctuate. She has had increasing problems with freezing, and she relates this is "balance problems", does appear more related to her Parkinson syndrome. She reports she has wanted to really bad days a month, her reports is more frequently than that. She is experiencing once a day and feels unsafe to be up.) - Integumentary Integumentary: reports: Dryness, Other (callous right foot; seeing telecommunications consultant) - Neurological Neurological: reports: General weakness, Memory problems (word finding; occ stm issues) - Psychiatric Psychiatric: reports: Depression, Anxiety - Hematologic/Lymphatic Hematologic/Lymphatic: denies: Recurrent infections - All Other Systems All Other Systems: reports: Reviewed and negative Physical Exam - Vital Signs Temperature: 97.1 C Pulse Rate: 71 Respiratory Rate: 18 O2 Saturation: 95 (ra @ rest) Blood Pressure: 132/84 - Physical Exam General Appearance: positive: Mild distress, Anxious Eyes Bilateral: positive: Normal inspection ENT: positive: No signs of dehydration, Other (poor dentition) Neck: positive: No JVD, Trachea midline Cardiovascular: positive: Regular rate & rhythm Respiratory: positive: Breath sounds nml Abdomen: positive: Soft, Nml bowel sounds Skin: positive: Pallor, Dryness Extremities: positive: No pedal edema Neurologic/Psychiatric: positive: Oriented x3, Mood/affect nml Palliative Care - POLST Patient has POLST: Yes POLST Status: DNR, Selective Treatment (bilateral hips and rib right side improved with Mobic, has not had recurrent issues wtih GERD which is why stopped previously) Pain: Pain improved, Location (b) Tiredness/Fatigue: Moderate (4-6) Drowsiness/Sedation: Mild (1-3) Nausea: None Depression: Mild (1-3) Anxiety: Moderate (4-6) Dyspnea: None Anorexia: None Sleep: Variable sleep pattern (uses oxycodone at night related to leg pain to sleep) Constipation: Yes, Unmanaged Feelings of wellbeing/Perceived Quality of Life: Good, Acceptable Performance Status: Has been this is patient with bathing, does need more assistance with toileting. Depending on her dyskinesias she is ambulating in the home, but does have frequent falls. Most recently she had a fall with a right forearm skin tear. Her caregivers to help her with ADLs and tasks in the home. - Palliative Care Discussion: Patient does not perceive herself as depressed but gets very frustrated. She gets her feelings her that she does feel her is embarrassed with her at times as far as he dyskinesias and ability to eat. She herself feels she is quite accepting of what is happening, she still thinks there are lots of good things in her life. Though she does perceive her quality of life is deterior ating it is still quite acceptable. He did have a good camping trip and managed fine, they are planning another trip in June which she is looking forward to. Impression and Recommendations - Palliative Care Impression: This is a 68-year-old woman who continues to struggle with advanced Parkinson's, she does have intermittent anxiety attacks he is of improved with her increased Effexor. She continues to use palliative care visits to process her grief and loss as well as counseling for depression. Palliative care to provide support for both patient and family focusing on symptom management and anticipatory guidance Recommendations/Counseling Done: 1.Anxiety. Patient has benefited from increased Effexor 37.5 mg to 75 mg daily at bedtime. 2. Advanced Parkinson's. Patient is working with Dr. Cartagena on her medications, no current changes. She does have a new motorized wheelchair, recommendations and counseling again for environmental modifications to accommodate. Did encourage patient to become more adept and practice more frequently as which she is having increased "bad days" related to falls this would give her more mobility. 3. Depression. Counseling provided for normal grief and loss issues, stressors related to adjustment illness and relationship issues. 4. Advanced care planning. Goal remains to continue keep patient at home for as long as possible, they have caregiving support that has been continues to be quite fatigued. Patient is concerned his feels has been is developing increasing memory problems which increases stressors between the 2 of them.Counseling provided regarding mild cognitive decline, and suggestions provided ways to respond. Time Spent: 45 minutes was given 50% of this done in counseling regarding anxiety, depression, and anticipatory guidance
== END 2018-06-09 13:16 | disposition home or self-care (01) ==
LOC: PC 13:15
PROVIDERS: ATTEND Nurse Practitioner Adult Health
DX: Z51.5 Encounter for palliative care (principal); F41.9 Anxiety disorder, unspecified; G20 Parkinson's disease; F32.9 Major depressive disorder, single episode, unspecified; G24.9 Dystonia, unspecified; G31.84 Mild cognitive impairment of uncertain or unknown etiology; M62.81 Muscle weakness (generalized); Z66 Do not resuscitate
CPT/HCPCS: 99349

== ENCOUNTER 2018-07-16 18:08 | Outpatient (CLI) | payer MEDICARE, OTHER, MEDICAID ==
--- NOTE | 2018-07-16 18:14 | CONSULTATION NOTE ---
Palliative Care Follow Up - Referral Referring Provider: Dr. Alec Aguilar Time of Visit: 5539-9291 Referral setting: Home (It is a taxing considerable effort for up she did leave the home secondary to her advanced Parkinson's and dyskinesias) Referral Reason: Advanced Parkinsons - Information Sources Records reviewed: Previous records reviewed History/Review of Systems obtained from: Patient Exam limitations: Clinical condition (patient with STM issues) Social History - Living Situation Living arrangement: At home Living Situation: With spouse/s.o. Support System: Patient has [employer] workers several hours a day, Has been though his primary caregiver. Patient directs most of her own care. Medications/Allergies - Medications Home Medications: Ambulatory Orders Medication Instructions Recorded Confirmed Omeprazole [PriLOSEC] 20 mg PO DAILY 02/17/17 07/18/18 Oxybutynin Chloride [Ditropan Xl] 15 mg PO DAILY 02/17/17 07/18/18 Ropinirole HCl 3 mg PO .1300 2000 02/17/17 07/18/18 Ropinirole HCl 4 mg PO QDBREAKFAST 02/17/17 07/18/18 Senna [Senokot] 17.2 mg PO QPM PRN 02/17/17 07/18/18 Trihexyphenidyl HCl 2 mg PO TID 07/24/17 07/18/18 oxyCODONE/ACET 5/325 [Percocet 5 0.5 - 1 each PO PRN PRN 07/24/17 07/18/18 mg/325 mg] Amantadine HCl [Gocovri] 137 mg PO DAILY 03/11/18 07/18/18 Carbidopa/Levodopa [Rytary ER 1 cap PO BID 03/11/18 07/18/18 23.75 mg-95 mg Cap] Meloxicam [Mobic] 7.5 mg PO BID 06/09/18 07/18/18 Venlafaxine [Effexor] 75 mg PO QPM 06/09/18 07/18/18 - Allergies Allergies/Adverse Reactions: Allergies Allergy/AdvReac Type Severity Reaction Status Date / Time No Known Drug Allergies Allergy Verified 06/01/17 17:50 Review of Systems - Constitutional Constitutional: reports: Fatigue, Weight loss (154.8 has cut back on sweets). denies: Fever, Poor appetite - Eyes Eyes: reports: Vision loss, Corrective lenses - Ears, Nose & Throat Ears, Nose & Throat: reports: Dental decay, Dry mouth - Cardiovascular Cardiovascular: denies: Chest pain - Respiratory Respiratory: denies: SOB at rest, SOB with exertion - Gastrointestinal Gastrointestinal: reports: Good appetite. denies: Constipation, Nausea, Reflux/heartburn - Genitourinary Genitourinary: reports: Frequency, Incontinence (occasional) - Musculoskeletal Musculoskeletal: reports: Stiffness, Limited range of motion, Muscle weakness, Assistive devices (using walker more; but does not help with falls as tends to fall backwards; have not cleared pathways to use new wheelchair since last visit nor done exercises), Other (patient with recent fall yesterday, hit head on table; no bruising swelling or neuro changes.) - Integumentary Integumentary: reports: Dryness - Neurological Neurological: reports: General weakness, Memory problems - Psychiatric Psychiatric: reports: Depression (notes significant difference with less tearfulness with increased effexor), Anxiety (anxiety episodes improved as well), Hallucinations (has some tactile with cats brushing against her/ some seeing cats about twice a week) - Hematologic/Lymphatic Hematologic/Lymphatic: denies: Recurrent infections - All Other Systems All Other Systems: reports: Reviewed and negative Physical Exam - Vital Signs Temperature: 97.5 C Pulse Rate: 87 Respiratory Rate: 18 O2 Saturation: 95 (ra @ rest) Blood Pressure: 122/72 - Physical Exam General Appearance: positive: No acute distress, Alert Eyes Bilateral: positive: Normal inspection ENT: positive: No signs of dehydration, Other (poor dentition) Neck: positive: Trachea midline Cardiovascular: positive: Regular rate & rhythm Respiratory: positive: Breath sounds nml Abdomen: positive: Non-tender, Soft Skin: positive: Pallor, Dryness Extremities: positive: No pedal edema Neurologic/Psychiatric: positive: Oriented x3, Mood/affect nml Palliative Care - POLST Patient has POLST: Yes POLST Status: DNR, Selective Treatment Pain: Pain improved (using meloxicam; hip and joint pain controlled; uses oxycodone at night; RLS controlled at this time too) Tiredness/Fatigue: Moderate (4-6) Drowsiness/Sedation: Mild (1-3) Nausea: None Depression: Mild (1-3) Anxiety: Mild (1-3) Dyspnea: None Sleep: Sleeps well Constipation: No Feelings of wellbeing/Perceived Quality of Life: Fair, Acceptable, No change Performance Status: Patient needing increased assistance in getting from sitting to standing, this is more related to balance and strength, though she is using the lift chair more also. She has tried a walker but that does help with standing, does not help with falls as she topples over secondary to balance. She is challenged with feeding herself, but still remains without any symptoms of choking. She does have intermittent dyskinesias, freezing is better, gait is quite shuffled, and she lists to the right. She does need assistance with bathing and toileting. - Palliative Care Discussion: Patient reports she is feeling better emotionally with adjustment of the effexor, Continues to trying to stay in the moment. continues to be quite stressed with her falls and balance issues. Patient continues to be somewhat impulsive, neither one have follow through on some strategies reviewed. Discussed again that for her to be home, and independent as much as she is, that having the sequela of a serious fall with change this. She continues to have fluctuating days, but continues to approach things with actually a fairly positive attitude. IVETTE ST is in place, patient would like to avoid hospitalization, as well as be at home for as long as possible. Impression and Recommendations - Palliative Care Impression: This is a 68-year-old woman who continues to struggle with her advanced Parkinson's, her anxiety and depression have continued to improve with her increased Effexor. Continues to use palliative care visits to process depression, grief and loss. Palliative care continue provide support both patient and family, with anticipatory guidance and focus on symptom management and safety Recommendations/Counseling Done: 1. Advanced Parkinson's. Patient is continue to work with Dr. Cartagena on her medications, no recent changes. They have not followed through on environmental modifications, she does have a new motorized wheelchair which would decrease her fall risk particularly on her "bad days". She continues to have difficulty with balance more so than freezing recently. Instructed has patient recent fall hit back of head, to remove glass tables. 2. Anxiety. Patient anxiety has improved, feeling less shaky and distressed. 3. Depression. Counseling provided for normal grief and loss issues, stressors related to adjustment and relationship issues, caregiver present and able to participate with her observations. 4. Advanced care planning. Goal remains to keep patient at home for as long as possible, though there are signs of caregiver fatigue. IVETTE ST is in place, highest risk of not meeting goals remains sequela of a fall. We will continue to see patient every 4-6 weeks unless acute symptoms arise.
== END 2018-07-16 18:09 | disposition home or self-care (01) ==
LOC: PC 18:08
PROVIDERS: ATTEND Nurse Practitioner Adult Health
DX: Z51.5 Encounter for palliative care (principal); G20 Parkinson's disease; F41.9 Anxiety disorder, unspecified; F32.9 Major depressive disorder, single episode, unspecified; G24.9 Dystonia, unspecified; M62.81 Muscle weakness (generalized); R53.1 Weakness; R44.1 Visual hallucinations; R53.83 Other fatigue; Z66 Do not resuscitate
CPT/HCPCS: 99349

== ENCOUNTER 2018-08-20 11:56 | Outpatient (CLI) | payer MEDICARE, OTHER, MEDICAID | END 2018-08-20 11:57 | disposition critical access hospital (66) | LOC: EMS 11:56 | PROVIDERS: ATTEND Surgery | DX: T40.2X1A Poisoning by other opioids, accidental (unintentional), initial encounter (principal); M54.9 Dorsalgia, unspecified | CPT/HCPCS: A0425; A0429 ==

== ENCOUNTER 2018-08-20 12:20 | Emergency (ER) | payer MEDICARE, OTHER, MEDICAID ==
[2018-08-20 14:11] LABS: BILIRUBIN,URINE NEGATIVE (NEGATIVE); GLUCOSE, URINE (UA) NEGATIVE (NEGATIVE); KETONES,URINE (UA) 15 mg/dL (NEGATIVE); LEUKOCYTE ESTERASE, URINE NEGATIVE (NEGATIVE); NITRITE,URINE NEGATIVE (NEGATIVE); OCCULT BLOOD,URINE NEGATIVE (NEGATIVE); PH,URINE 5.5 PH (5.0-7.5); PROTEIN,URINE TRACE mg/dL (NEGATIVE); UROBILINOGEN,URINE 0.2 (NORMAL) E.U./dL (NORMAL)
[2018-08-20 14:12] LABS: CLARITY,URINE CLEAR (CLEAR)
[2018-08-20 14:15] VITALS: BP 145/76
--- NOTE | 2018-08-20 14:18 | ED Physician Documentation ---
History of Present Illness - Stated complaint Stated Complaint: OD - Chief complaint Chief Complaint: Neuro - History obtained from History obtained from: Patient, Family () - History of Present Illness Timing: How many hours ago (2) - Additonal information Additional information: The patient is a 68-year-old female with a history of parkinsonism and chronic low back pain for which she takes oxycodone. She presents to the emergency department because she inadvertently took more oxycodone today than she usually does, and is concerned about overdose. She normally takes one half tablet in the morning. This morning at 9:00, 4 hours prior to arrival, she took one full tablet. 2 hours later, at 11 AM, she forgot about having taken the medication earlier, and took another full tablet. After realizing her mistake, she presents to the emergency department concerned about overdose. Her back pain has subsided since taking the medication. Review of Systems Constitutional: reports: Other (Feeling "stoned and groggy."). denies: Fever Ears: denies: Tinnitus/ringing Nose: denies: Congestion Throat: denies: Sore throat Cardiac: denies: Chest pain / pressure Respiratory: denies: Dyspnea, Cough GI: denies: Abdominal Pain, Nausea, Vomiting : denies: Dysuria Skin: denies: Rash Musculoskeletal: reports: Back pain (Chronically.) Neurologic: reports: Generalized weakness. denies: Focal weakness, Numbness, Headache PD PAST MEDICAL HISTORY - Past Medical History Cardiovascular: None Respiratory: Other Neuro: Parkinson's Endocrine/Autoimmune: None GI: None : Other HEENT: None Psych: None Musculoskeletal: Osteoarthritis, Scoliosis, Chronic back pain Derm: None - Past Surgical History Past Surgical History: Yes General: Cholecystectomy Ortho: Spine surgery, Other /EGG PROCESSOR: Hysterectomy - Present Medications Home Medications: Ambulatory Orders Medication Instructions Recorded Confirmed Omeprazole [PriLOSEC] 20 mg PO DAILY 02/17/17 07/18/18 Oxybutynin Chloride [Ditropan Xl] 15 mg PO DAILY 02/17/17 07/18/18 Ropinirole HCl 3 mg PO .1300 2000 02/17/17 07/18/18 Ropinirole HCl 4 mg PO QDBREAKFAST 02/17/17 07/18/18 Trihexyphenidyl HCl 2 mg PO TID 07/24/17 07/18/18 oxyCODONE/ACET 5/325 [Percocet 5 0.5 - 1 each PO PRN PRN 07/24/17 07/18/18 mg/325 mg] Amantadine HCl [Gocovri] 137 mg PO DAILY 03/11/18 07/18/18 Carbidopa/Levodopa [Rytary ER 1 cap PO BID 03/11/18 07/18/18 23.75 mg-95 mg Cap] Venlafaxine [Effexor] 75 mg PO QPM 06/09/18 07/18/18 - Allergies Allergies/Adverse Reactions: Allergies Allergy/AdvReac Type Severity Reaction Status Date / Time No Known Drug Allergies Allergy Verified 08/20/18 12:25 - Social History Does the pt smoke?: No Smoking Status: Never smoker Does the pt drink ETOH?: No Does the pt have substance abuse?: No - Immunizations Immunizations are current?: Yes - POLST Patient has POLST: Yes PD ED PE NORMAL - Vitals Vital signs reviewed: Yes (Initially hypertensive.) - General General: Alert and oriented X 3, Well developed/nourished - HEENT HEENT: Atraumatic, Moist mucous membranes - Neck Neck: No JVD - Cardiac Cardiac: RRR - Respiratory Respiratory: No respiratory distress, Clear bilaterally - Abdomen Abdomen: Soft, Non tender - Back Back: No CVA TTP, No spinal TTP - Derm Derm: No rash - Extremities Extremities: No edema, No calf tenderness / cord - Neuro Neuro: Alert and oriented X 3, No motor deficit, No sensory deficit, Other (Rigidity, consistent with parkinsonism.) Results - Vitals Vitals: Oxygen O2 Source Room air - Labs Labs: Laboratory Tests 08/20/18 13:30 Urine Color YELLOW Urine Clarity CLEAR Urine pH 5.5 Ur Specific [place] >=1.030 H Urine Protein TRACE Urine Glucose (UA) NEGATIVE Urine Ketones 15 H Urine Occult Blood NEGATIVE Urine Nitrite NEGATIVE Urine Bilirubin NEGATIVE Urine Urobilinogen 0.2 (NORMAL) Ur Leukocyte Esterase NEGATIVE Ur Microscopic Review NOT INDICATED Urine Culture Comments NOT INDICATED PD MEDICAL DECISION MAKING - ED course Complexity details: reviewed results, re-evaluated patient, considered differential, d/w patient, d/w family ED course: The patient presents with accidental ingestion of more narcotic medication and she usually takes. It does not rise to the level of toxic overdose. Consideration was given to possible causes for her back pain being more symptomatic than usual this morning. Her urinalysis is negative, making urinary tract infection unlikely. Her presentation does not suggest renal colic. Her symptoms are not suggestive of epidural abscess, and there is no neurologic deficit to suggest spinal stenosis. I reassured her and her that the ingestion of more than usual oxycodone is not a toxic level, and will metabolize over several hours time. She will follow-up with her primary physician, and I discussed potentially worrisome signs or symptoms that should prompt reevaluation in the emergency department. Departure - Departure Disposition: 01 Home, Self Care Clinical Impression: Parkinson disease Accidental overdose Qualifiers: Encounter type: initial encounter Qualified Code(s): T50.901A - Poisoning by unspecified drugs, medicaments and biological substances, accidental (unintentional), initial encounter Chronic back pain Qualifiers: Back pain location: back pain in unspecified location Back pain laterality: bilateral Qualified Code(s): M54.9 - Dorsalgia, unspecified Condition: Stable Instructions: ED Overdose Accidental Follow-Up: Alec Aguilar MD [Primary Care Provider] - Comments: The extra oxycodone you took is not likely to cause any significant long-term consequences, but can make you drowsy today. Follow-up with your primary physician as needed. Return to the emergency department if you develop persistently increasing pain, or otherwise worsening symptoms. Discharge Date/Time: 08/20/18 14:24
== END 2018-08-20 14:24 | disposition home or self-care (01) ==
LOC: ED 12:20
DX: T40.2X1A Poisoning by other opioids, accidental (unintentional), initial encounter (principal); G20 Parkinson's disease; G89.29 Other chronic pain; M54.5 Low back pain
CPT/HCPCS: 51701; 81001; 81003; 87086; 99282; 99283

== ENCOUNTER 2018-09-01 17:46 | Outpatient (CLI) | payer MEDICARE, OTHER, MEDICAID ==
--- NOTE | 2018-09-01 21:21 | CONSULTATION NOTE ---
Palliative Care Follow Up - Referral Referring Provider: Dr. Alec Aguilar Time of Visit: [phone] Referral setting: Home Referral Reason: Advanced Parkinsons/Anxiety/Depression - Information Sources Records reviewed: Previous records reviewed History/Review of Systems obtained from: Patient Exam limitations: Clinical condition (patient with STM issues) - History of Present Illness Update Brief HPI Update: This is a spunky 68-year-old woman with advanced Parkinson's who suffers from severe dyskinesias, poor truncal strength with leaning to the right, mild cognitive impairment resulting in impulsivity, and ongoing frequent falls. She did have an injury fall last week, with follow-up with her PCP, she still continues have point tenderness though the chest x-ray was negative for rib fractures. She is managing with oxycodone 5 mg / 325 mg half tab 3 times daily, though does struggle with some sedation with this. She continues to have somewhat resistant parkinsonian syndromes to her current medication regimen, she is up for several hours, takes her medications about noon, has the dyskinesias for about 4 hours, then is "fine" per her definition for rest of the evening. Her falls are the results of freezing, balance problems, and impulsivity. She has had some increased difficulty with swallowing, though with reports only intermittent choking. She continues with anxiety and depression,, needing that it is "it is there", is unable to expand further on this, though does feel has improved on her increased dose of venlafaxine. She gets easily overwhelmed and intermittently confused regarding directions, is finally over see medication management and feeling Mediset's. Social History - Living Situation Living arrangement: At home Living Situation: With spouse/s.o. (spouse is hard of hearing; does get stressed with patient's frequent falls and impulsivity;), With caregiver(s) (Has [employer] caregivers several hours a day; recently had change in caregivers has caused her some anxiety as she is adjusting) Medications/Allergies - Medications Home Medications: Ambulatory Orders Medication Instructions Recorded Confirmed Omeprazole [PriLOSEC] 20 mg PO BID 02/17/17 09/01/18 Oxybutynin Chloride [Ditropan Xl] 15 mg PO DAILY 02/17/17 09/01/18 Ropinirole HCl 3 mg PO .1300 2000 02/17/17 09/01/18 Ropinirole HCl 4 mg PO QDBREAKFAST 02/17/17 09/01/18 Trihexyphenidyl HCl 2 mg PO TID 07/24/17 09/01/18 oxyCODONE/ACET 5/325 [Percocet 5 0.5 - 1 g PO Q4HR PRN MDD 4 tabs 07/24/17 09/01/18 mg/325 mg] Amantadine HCl [Gocovri] 137 mg PO DAILY 03/11/18 09/01/18 Carbidopa/Levodopa [Rytary ER 1 cap PO BID 03/11/18 09/01/18 23.75 mg-95 mg Cap] Venlafaxine [Effexor] 75 mg PO QPM 06/09/18 09/01/18 - Allergies Allergies/Adverse Reactions: Allergies Allergy/AdvReac Type Severity Reaction Status Date / Time No Known Drug Allergies Allergy Verified 08/20/18 12:25 Review of Systems - Constitutional Constitutional: reports: Fatigue, Weight stable. denies: Fever, Chills - Eyes Eyes: reports: Vision loss, Corrective lenses - Ears, Nose & Throat Ears, Nose & Throat: reports: Dental decay - Cardiovascular Cardiovascular: reports: Decr. exercise tolerance - Respiratory Respiratory: reports: SOB with exertion. denies: SOB at rest - Gastrointestinal Gastrointestinal: reports: Good appetite, Other (increase difficulty with feeding at times with dyskinesthias). denies: Constipation - Genitourinary Genitourinary: reports: Incontinence (mild) - Musculoskeletal Musculoskeletal: reports: Muscle aches, Stiffness, Limited range of motion, Muscle weakness - Integumentary Integumentary: reports: Dryness - Neurological Neurological: reports: General weakness, Memory problems, Other (voice more soft and difficult to understand) - Psychiatric Psychiatric: reports: Depression, Anxiety, Hallucinations (occasional of cats). denies: Suicidal - All Other Systems All Other Systems: reports: Reviewed and negative Physical Exam - Vital Signs Temperature: 97.8 C Pulse Rate: 88 Respiratory Rate: 18 O2 Saturation: 95 (ra @ rest) Blood Pressure: 118/64 - Physical Exam General Appearance: positive: Alert, Anxious Eyes Bilateral: positive: Normal inspection ENT: positive: No signs of dehydration Neck: positive: No JVD, Trachea midline Cardiovascular: positive: Regular rate & rhythm Respiratory: positive: Breath sounds nml Abdomen: positive: Soft, Nml bowel sounds Skin: positive: Dryness. negative: Bruising Extremities: positive: No pedal edema Neurologic/Psychiatric: positive: Mood/affect nml, Disoriented to time, Weakness, Flat affect, Other (patient with severe dyskinesia throughout visit;) Palliative Care - POLST Patient has POLST: Yes POLST Status: DNR, Selective Treatment Pain: Location (Acute right rib and back thoracic pain secondary to fall. Point tenderness to palpation, does not seem to be displaced. Is using oxycodone/acetaminophen half tab 3 times daily with adequate results. Patient has baseline pain secondary to poor truncal stability and discomfort. Reports is improving not worsening.) Tiredness/Fatigue: Moderate (4-6) Drowsiness/Sedation: Moderate (4-6) Nausea: None Depression: Mild (1-3) Anxiety: Mild (1-3) Dyspnea: Mild (1-3) Anorexia: None Sleep: Sleeps well Constipation: No Feelings of wellbeing/Perceived Quality of Life: Fair, Acceptable, No change Performance Status: Ambulatory in house with standby/contact assist. The patient does get up without supervision thus resulting in multiple falls. Patient does need assistance with bathing, increasing difficulty with eating, is dependent for all IADLs, and does need assistance with dressing. - Palliative Care Discussion: Patient was given the impression was no longer going to receive palliative care, we did discuss in the context of his serious illness, her counseling for ongoing anxiety and depression would continue. We have had a frequency of about 6-8 weeks, this is an adequate, patient has continued to decline though she of course does not meet hospice criteria. Impression and Recommendations - Palliative Care Impression: This is a 68-year-old woman who continues to struggle with advanced Parkinsons, she does have ongoing functional and cognitive decline though very slow, has had no sequela of yet another fall with right rib pain. Continues use palliative care visits to process depression, anxiety, grief and loss. Palliative care to continue provide support both the patient and family with anticipatory guidance and focus on symptom and safety. Recommendations/Counseling Done: 1. Advanced Parkinson's. Patient is due to see Dr. JALYN Crockett beginning of September, she is somewhat perseverative regarding her time-released amantadine medication, did get a backup of short acting in case insurance does not cover. Patient is a poor historian, unclear as far as effectiveness of medications and ongoing adjustments. She is quite impulsive, she presents today with severe dyskinesias, but does have better medication adherence with new Mediset and has been oversight. Patient's highest risk as far as ongoing decline is sequela of falls. 2. Anxiety. Patient continues to experience intermittent anxiety, does admit some of this is related to her cognitive decline and frustration with this. Counseling provided to normalize her grief and loss processes, as well as addressed some of her immediate stressors and questions. 3 Right rib pain. Secondary to trauma. Patient reports oxycodone makes her "stupider", Review do expect it to heal over the next several weeks, would recommend titrating back to only intermittent oxycodone half tabs as it improves. Patient does not tolerate opioids very well. We also discussed in the context of 1 provider writing prescriptions, I would continue to provide prescriptions versus clinic, she is in agreement Rx destroyed from Dr. Hollis and new prescription provided. 4. Advanced care planning. Patient does have a IVETTE ST in place, has had one trip to the ED secondary to anxiety taking 2 oxycodone and panicked when got sleepy, is overseeing medications at this point in time, does have Mediset some better adherence as well as consistency. Patient continues with slow functional and cognitive decline, continues to remain at high risk for sequela of a fall, goal remains to keep her at home for as long as possible. Time Spent: Time spent 45 minutes was given 50% of this done in counseling regarding anxiety depression, grief and loss and safety as well as opioid use and anticipatory guidance
== END 2018-09-01 17:47 | disposition home or self-care (01) ==
LOC: PC 17:46
PROVIDERS: ATTEND Nurse Practitioner Adult Health
DX: Z51.5 Encounter for palliative care (principal); G20 Parkinson's disease; F41.9 Anxiety disorder, unspecified; G24.9 Dystonia, unspecified; R29.6 Repeated falls; Z91.81 History of falling; F32.9 Major depressive disorder, single episode, unspecified; Z66 Do not resuscitate
CPT/HCPCS: 99349

== ENCOUNTER 2018-10-08 16:37 | Outpatient (CLI) | payer MEDICARE, OTHER, MEDICAID ==
--- NOTE | 2018-10-08 16:51 | CONSULTATION NOTE ---
Palliative Care Follow Up - Referral Referring Provider: Dr. Aguilar Time of Visit: [id number] Referral setting: Home (Is a taxing considerable effort for the patient leave the home secondary to severe dyskinesias and high fall risk) Referral Reason: Advanced Parkinsons - Information Sources Records reviewed: Previous records reviewed History/Review of Systems obtained from: Patient Exam limitations: Clinical condition (patient with STM issues) - History of Present Illness Update Brief HPI Update: This is a feisty 5-year-old woman with advanced Parkinson's who suffers from severe dyskinesias, poor truncal strength with leaning to the right, mild cognitive impairment resulting in impulsivity had short-term memory loss and ongoing frequent falls. Patient last seen mid August, since that time she does feel like she is "changing". She is having more difficulty with her dyskinesias, able to only ambulate 10-15 feet without needing to sit down. She presents with severe facial contortions, unable to sit straight, and frequent movements. She denies any trouble with eating, but she is starting to have w eight loss at 142. She can still feed herself with a spoon, though is making what she calls a "significant mass". She reports her hallucinations had decreased, she is still seeing cats 1-2 times a week has some tactile hallucination is of well is feeling and rub against her leg. She had had a severe fall last time I saw her, her back and right ribs are improved. She is down to only needing her Percocet 1 at bedtime and occasional half during the day. Patient admits to increased difficulty tracking conversations, increased memory issues, and feels like her balance is worsening. She does deny any difficulty though with choking. She reports she does have some left osteoarthritic hip pain, as well as tension across the back of her neck and some sharp shooting pains down her left shoulder into her hand. Patient's past medical history is only significant for surgeries including hysterectomy, gallbladder, and has a history of broken pelvis from a fall. Social History - Living Situation Living arrangement: At home Living Situation: With spouse/s.o. Support System: Patient lives with her spouse, he is hard of hearing, gets stressed with the patient's frequent falls and impulsivity. She does have caregivers from [facility] several hours a few days a week. He has recently had surgery and is less able to help her physically. Medications/Allergies - Medications Home Medications: Ambulatory Orders Medication Instructions Recorded Confirmed Omeprazole [PriLOSEC] 20 mg PO BID 02/17/17 10/08/18 Oxybutynin Chloride [Ditropan Xl] 15 mg PO DAILY 02/17/17 10/08/18 Ropinirole HCl 3 mg PO .1300 2000 02/17/17 10/08/18 Ropinirole HCl 4 mg PO QDBREAKFAST 02/17/17 10/08/18 Trihexyphenidyl HCl 2 mg PO TID 07/24/17 10/08/18 oxyCODONE/ACET 5/325 [Percocet 5 0.5 - 1 g PO Q4HR PRN MDD 4 tabs 07/24/17 10/08/18 mg/325 mg] Carbidopa/Levodopa [Rytary ER 1 cap PO BID 03/11/18 10/08/18 23.75 mg-95 mg Cap] Venlafaxine [Effexor] 75 mg PO QPM 06/09/18 10/08/18 Amantadine HCl [Amantadine] 100 mg PO BID 10/08/18 10/08/18 - Allergies Allergies/Adverse Reactions: Allergies Allergy/AdvReac Type Severity Reaction Status Date / Time No Known Drug Allergies Allergy Verified 08/20/18 12:25 Review of Systems - Constitutional Constitutional: reports: Fatigue, Weakness, Weight loss (142). denies: Fever, Chills - Eyes Eyes: reports: Vision loss, Corrective lenses - Ears, Nose & Throat Ears, Nose & Throat: reports: Hearing loss (mild), Dry mouth - Cardiovascular Cardiovascular: reports: Decr. exercise tolerance - Respiratory Respiratory: reports: Cough (slight and chronic), SOB with exertion - Gastrointestinal Gastrointestinal: reports: Good appetite (eating less portions). denies: Constipation, Nausea, Reflux/heartburn - Genitourinary Genitourinary: reports: Incontinence (flucutating and intermittent a few times a week) - Musculoskeletal Musculoskeletal: reports: Stiffness, Muscle weakness, Other (leans to right; worsening dyskinethia) - Integumentary Integumentary: reports: Dryness, Other (c/o callous right foot impacting pain balance) - Neurological Neurological: reports: Memory problems (worsening with word finding; concentration; STM isues), Slurred speech - Psychiatric Psychiatric: reports: Depression (feels currently controlled), Anxiety, Hallucinations - All Other Systems All Other Systems: reports: Reviewed and negative Physical Exam - Vital Signs Temperature: 97.6 C Pulse Rate: 82 Respiratory Rate: 18 O2 Saturation: 93 (ra @ rest) Blood Pressure: 122/62 - Physical Exam General Appearance: positive: No acute distress Eyes Bilateral: positive: Normal inspection ENT: positive: Other (poor dental) Neck: positive: No JVD, Trachea midline Cardiovascular: positive: Regular rate & rhythm Respiratory: positive: No respiratory distress Abdomen: positive: Soft, Nml bowel sounds Skin: positive: Pallor, Dryness Extremities: positive: No pedal edema Neurologic/Psychiatric: positive: Oriented x3, Mood/affect nml, Slurred/abnml speech, Flat affect Palliative Care - POLST Patient has POLST: Yes POLST Status: DNR, Selective Treatment Pain: Pain improved, Location (Reports pain mostly in her left hip, does get some lower extremity pain and aching. She has been able to decrease her Percocet is down to 1 tab at bedtime and occasional half during the day. Most of her pain is at night particularly with the stiffness does note increased pain in left neck shoulder area.) Tiredness/Fatigue: Moderate (4-6) Drowsiness/Sedation: Mild (1-3) Nausea: None Depression: Mild (1-3) Anxiety: Mild (1-3) Dyspnea: Mild (1-3) Anorexia: Mild (1-3) Sleep: Sleeps well Constipation: No Feelings of wellbeing/Perceived Quality of Life: Fair, Acceptable, Worsening Performance Status: Patient has expressed decrease in functional decline over the last several weeks. This is related to her severity of her dyskinesias, balance, has been much more chair bound and spending more time in the recliner. I would put her at a PPS at 50%. - Palliative Care Discussion: Patient did enjoy her holidays, they did spend the time and day over at her daughter's home. She continues to spend most of her time watching TV. She reports her and Bill doing okay, But they do have significant tension over multiple issues as a sequela of her impulsivity and health status. She does recognize her decline, does feel her quality of life is still acceptable. Her goal is to stay at home for as long as possible, but is noting increased difficulties. Impression and Recommendations - Palliative Care Impression: This is a 68-year-old woman who continues to struggle with advanced Parkinson's, she continues to have both functional and cognitive decline, there has been much more difficulty with her dyskinesias over the last several weeks. She continues to be high fall risk, continues to fall daily but has had no acute trauma recently. Palliative care continue to visit with patient to process depression, anxiety, grief and loss. Palliative care to continue with provide support both for patient and family with anticipatory guidance and focus on symptom and safety Recommendations/Counseling Done: 1. Advanced Parkinson's. Patient scheduled to see Dr. JALYN Crockett on 10/19. She did switch from her time-released amantadine via get [facility] to short acting she was perseverating regarding cost. Patient has very poor recall and being able to match symptoms to medication changes, she has had actually an increase in her dyskinesias. She remains quite impulsive. Patient's highest risk as far as ongoing decline is the sequela of falls. Patient has been instructed to remove glass table in the middle of living room after multiple visits. She is starting to present with some weight loss. 2. Anxiety. Patient reports anxiety is improved, she is having more cognitive issues and frustration with this. Counseling provided again to normalize her grief and loss process as well as address some of her stressors and concerns. 3. Generalized weakness. Patient is ambulating less, more chair bound. Patient has been counseled today on stretching exercises secondary to pain and d iscomfort in neck shoulders and arms. Patient has been counseled on fall precautions multiple times, continues to fall on a daily basis. 4. Advanced care planning. Patient does have a IVETTE ST in place, continues with slow functional and cognitive decline, high risk risk remains sequela of a fall, goal remains to keep her at home for as long as possible and avoid hospitalization Time Spent: 50 minutes with greater than 50% of this done in counseling regarding management of pain and symptom management and safety issues as well as anticipatory guidance.
== END 2018-10-08 16:38 | disposition home or self-care (01) ==
LOC: PC 16:37
PROVIDERS: ATTEND Nurse Practitioner Adult Health
DX: Z51.5 Encounter for palliative care (principal); G20 Parkinson's disease; G24.9 Dystonia, unspecified; F41.9 Anxiety disorder, unspecified; F32.9 Major depressive disorder, single episode, unspecified; R32 Unspecified urinary incontinence; R53.1 Weakness; R29.6 Repeated falls; Z79.891 Long term (current) use of opiate analgesic; R41.81 Age-related cognitive decline; Z66 Do not resuscitate
CPT/HCPCS: 99349

== ENCOUNTER 2018-11-25 13:15 | Outpatient (CLI) | payer MEDICARE, OTHER, MEDICAID ==
--- NOTE | 2018-11-25 23:26 | CONSULTATION NOTE ---
Palliative Care Follow Up - Referral Referring Provider: Dr. Alec Aguilar Time of Visit: [id number] Referral setting: Home Referral Reason: Advanced Parkinsons - Information Sources Records reviewed: Previous records reviewed History/Review of Systems obtained from: Patient, Family ( Isaiah participated in family conference) Exam limitations: Clinical condition (patient with mild STM issues) - History of Present Illness Update Brief HPI Update: This is a feisty 68-year-old woman with advanced Parkinson is suffers from severe dyskinesia, poor truncal strength with leading to the right, mild cognitive impairment resulting in impulsivity and short-term memory loss, as well as ongoing frequent falls. She has continued to have poor balance, falling about 3 times a day, she has had no serious injuries. She does note that this increase in dyskinesia and balance issues happens right after she takes her pills, and last for about 4 hours. She reports her legs get tired and weak and do not "work", and her restless leg syndrome escalates. After this time that it settles down, she is more functional through the day, though continues to insist on walking around the house, despite high risk of sequela of falls. She reports no further increased trouble with dysphagia, she does have some increased word finding, but denies confusion. She has regained her weight at 2 147.3, her appetite is good. New symptoms she is describing, she has had 3 episodes of near syncope, she feels like she is going to black out, with "things coming down". She denies dizziness or any pattern to this, suspect may be autonomic dysfunction. Patient is quite tearful today, "I do not want to have Parkinson's". She did not see Dr. Cartagena secondary to the weather, she has rescheduled for 11/29. This has caused some distress between her and her , as he does not like driving down town. He is hoping she will consider looking at neurology support closer to home. Patient's other symptom is her right-sided pain, patient does torque to the right, essentially puts [id number] in her positioning. She is more uncomfortable when she straightens out. She is only using her oxycodone half tab at bedtime. Social History - Living Situation Living arrangement: At home Living Situation: With spouse/s.o. Support System: Patient lives with her spouse Isaiah, he is very hard of hearing and gets quite stressed with patient's frequent falls and impulsivity. This does cause significant tension between the 2 of them. She does have caregivers from [facility] several hours a day most days of the week. She does have fluctuating caregivers. Medications/Allergies - Medications Home Medications: Ambulatory Orders Medication Instructions Recorded Confirmed Omeprazole [PriLOSEC] 20 mg PO BID 02/17/17 11/27/18 Oxybutynin Chloride [Ditropan Xl] 15 mg PO DAILY 02/17/17 11/27/18 Ropinirole HCl 3 mg PO .1300 2000 02/17/17 11/27/18 Ropinirole HCl 4 mg PO QDBREAKFAST 02/17/17 11/27/18 Trihexyphenidyl HCl 2 mg PO TID 07/24/17 11/27/18 oxyCODONE/ACET 5/325 [Percocet 5 0.5 - 1 g PO Q4HR PRN MDD 4 tabs 07/24/17 11/27/18 mg/325 mg] Carbidopa/Levodopa [Rytary ER 1 cap PO BID 03/11/18 11/27/18 23.75 mg-95 mg Cap] Venlafaxine [Effexor] 75 mg PO QPM 06/09/18 11/27/18 Amantadine HCl [Amantadine] 100 mg PO BID 10/08/18 11/27/18 Acetaminophen [Tylenol] 650 mg PO Q6H PRN 11/27/18 11/27/18 - Allergies Allergies/Adverse Reactions: Allergies Allergy/AdvReac Type Severity Reaction Status Date / Time No Known Drug Allergies Allergy Verified 08/20/18 12:25 Review of Systems - Constitutional Constitutional: reports: Fatigue, Weight stable (147.3). denies: Fever, Chills - Eyes Eyes: reports: Vision loss, Corrective lenses - Ears, Nose & Throat Ears, Nose & Throat: reports: Dental decay, Dry mouth - Cardiovascular Cardiovascular: denies: Edema - Respiratory Respiratory: denies: SOB at rest - Gastrointestinal Gastrointestinal: reports: Reflux/heartburn (controlled), Good appetite. denies: Constipation, Nausea - Genitourinary Genitourinary: reports: Incontinence (intermittent) - Musculoskeletal Musculoskeletal: reports: Back pain, Stiffness, Muscle weakness, Transfer issues (has "zipper" power chair, did use when out shopping; unable to maneuver in home secondary poor fine motor skills needed) - Integumentary Integumentary: reports: Dryness, Nail changes (needs podiatry appointment for callous; no longer covered by Medicare) - Neurological Neurological: reports: General weakness, Memory problems (STM minimal; mostly word finding;), Slurred speech (difficult at times to understand) - Psychiatric Psychiatric: reports: Depression, Anxiety, Hallucinations - Hematologic/Lymphatic Hematologic/Lymphatic: denies: Recurrent infections - All Other Systems All Other Systems: reports: Reviewed and negative Physical Exam - Vital Signs Temperature: 96.9 C Pulse Rate: 72 Respiratory Rate: 16 O2 Saturation: 95 (ra @ rest) Blood Pressure: 132/82 - Physical Exam General Appearance: positive: No acute distress Eyes Bilateral: positive: Normal inspection ENT: positive: No signs of dehydration Neck: positive: No JVD, Trachea midline Cardiovascular: positive: Regular rate & rhythm Respiratory: positive: No respiratory distress, Breath sounds nml Abdomen: positive: Soft, Nml bowel sounds Skin: positive: Pallor, Dryness Extremities: positive: No pedal edema Neurologic/Psychiatric: positive: Oriented x3, Weakness, Depressed mood/affect (tearful today), Flat affect Palliative Care - POLST Patient has POLST: Yes POLST Status: DNR, Selective Treatment Pain: Pain unchanged, Location (right side with positioning) Tiredness/Fatigue: Moderate (4-6) Drowsiness/Sedation: Mild (1-3) Nausea: None Depression: Mild (1-3) Anxiety: Mild (1-3) Anorexia: None Sleep: Sleeps well Constipation: Yes, Managed Feelings of wellbeing/Perceived Quality of Life: Fair, Acceptable, No change Performance Status: Patient describes decrease in functional decline though patient does not perceive this. She does need assistance with bathing, dressing, she is still able to feed herself though she does make mass related to her dyskinesias. She denies any choking. She is still attempting to ambulate, does report she has less active, and is not followed through on any of her exercise programs. I would put her at PPS of 50% - Palliative Care Discussion: Patient presents is quite tearful today, there does seem to be some tension between her and her related to upcoming appointment. He would like her to obtain her care closer to home, she is feeling quite sad and as she had been supported by her daughter in taking her to these appointments. Her daughter is that she too will not take her downtown, Exploring the relationship with her daughter further, it does feel to her like she has been abandoned. We did discuss in the context of patient's isolation, and she is feeling quite lonely. Facilitated conversation between patient and regarding both perceived needs and ways to address and/or compromise. Counseling provided to normalize grief and loss, to encourage communication between the two given the chronicity and seriousness of her illness, both expressing concerns. Impression and Recommendations - Palliative Care Impression: Is a 68-year-old woman who continues to struggle with the sequela of advanced Parkinson's, she continues to have frequent falls and more difficulty with her dyskinesias. She is falling at least 3 times a day now, has had no acute trauma lately, but remains quite impulsive. She also now presents with symptoms of autonomic dysregulation, with near syncope. Of care counseling to provide processing depression, anxiety, grief and loss. We will continue provide support for both patient and family with anticipatory guidance with focus on symptoms and safety. Recommendations/Counseling Done: 1. Advanced Parkinson's. Patient is scheduled to see Dr. Cartagena on 11/29, as was unable to make her September appointment. Patient has difficulty tracking symptoms related to medication timing, and has had an increase in her dyskinesias. She remains quite impulsive. Patient has been instructed multiple times regarding safety, very poor follow-through on recommendations. 2. Right-sided thoracic pain. Counseling provided regarding positioning and chair, proper support and posturing. This was reviewed with caregiver as well. Instructed to use her lift chair rather than "flopping down in the chair" as she cannot reposition herself in the chair. We reviewed given her level of discomfort, she can initiate acetaminophen 650 mg 2-3 times a day, she finds oxycodone too sedating though it is effective in providing her some pain relief. 3. Depression. Counseling provided with patient and regarding cognitive behavioral techniques, setting short-term goals, decreasing her isolation. Request that she make a commitment to getting out of the house at least weekly either with her and/or caregivers. Counseling provided to normalize her current grief and loss process. Given distress of [facility], call to Dr. Aguilar's office to facilitate referral to Dr. Ridley in [facility], patient in agreement to consult, agreed if not good fit can continue with current plan. 4. Advanced care planning. Patient does have IVETTE ST in place with DNA R/selective treatment. Patient continues to have slow decline, both functional and cognitive. Patient at most high risk for sequela of a fall given her continued falling, and impulsivity. Palliative care to continue to provide support on regular basis to address depression and anxiety, safety and anticipatory guidance. Time Spent: 45 minutes with greater than 50% of this done in counseling regarding safety, pain management, instructed to share new symptoms of syncope with Dr. tavarez appointment on Thursday, and anticipatory guidance
== END 2018-11-25 13:16 | disposition home or self-care (01) ==
LOC: PC 13:15
PROVIDERS: ATTEND Nurse Practitioner Adult Health
DX: Z51.5 Encounter for palliative care (principal); G20 Parkinson's disease; M54.6 Pain in thoracic spine; F32.9 Major depressive disorder, single episode, unspecified; F41.9 Anxiety disorder, unspecified; G25.81 Restless legs syndrome; R55 Syncope and collapse; R41.3 Other amnesia; Z79.891 Long term (current) use of opiate analgesic; Z66 Do not resuscitate; Z91.81 History of falling
CPT/HCPCS: 99349

== ENCOUNTER 2018-12-30 13:00 | Outpatient (CLI) | payer MEDICARE, OTHER, MEDICAID ==
--- NOTE | 2018-12-30 17:35 | CONSULTATION NOTE ---
Palliative Care Follow Up - Referral Referring Provider: Dr. Alec Aguilar Time of Visit: 1:00-1:50 Referral setting: Home Referral Reason: Advanced Parkinsons - Information Sources Records reviewed: Previous records reviewed History/Review of Systems obtained from: Patient, Family ( Isaiah present for part of visit) Exam limitations: No limitations - History of Present Illness Update Brief HPI Update: This is a feisty 68-year-old woman with advanced Parkinson's, who suffers from severe dyskinesias, poor truncal strength leading to scoliosis to the right. She has mild cognitive impairment resulting in impulsivity and short-term memory loss, as well as ongoing falls. She does have poor balance, falls frequently during the day, though this is decreased as her ability to get up independently has changed. She currently has had no serious injuries. She has noted increased difficulty getting from chair/couch, decrease in lower body strength, her dyskinesias and her balance are about the same. She did see her neurologist Dr. [facility], Had instructed her to decrease her daily ropinirole from 4 mg to 1 mg in the a.m. This resulted with severe increase in her restless leg syndrome, so she increased it back up. Her plan because it is so difficult for her to drive her downtown, and patient is not open to any of the clinical trials or more invasive treatments, is to transition to a local neurologist, Dr. Mariama Ridley. Patient's reports as far as symptom burden, her pain is unchanged, she still takes oxycodone 1/2-1 tab at bedtime secondary to leg pain and to assist with sleep. She denies drowsiness, nausea, her appetite is good though she feels like she is less able to eat because of her difficulty with self-feeding, she reports her depression is currently controlled, and her anxiety has not escalated. She still perceives her quality of life as tolerable, but does see the subtle changes in progression of her disease. Social History - Living Situation Living arrangement: At home Living Situation: With spouse/s.o. Support System: Lives with her Isaiah, he did admit today he is having increased memory problems and is planning to speak with his provider. This is been a source of tension between the 2 of them, she is quite worried about him. They do have [employer] for several hours a day 5 times a week this does allow her to get out and do [place]. His greatest fear and concern of course is still her ongoing falls. They are planning a camping trip in the future, she is looking forward to this, they have a large RV that makes this possible with her disabilities. Medications/Allergies - Medications Home Medications: Ambulatory Orders Medication Instructions Recorded Confirmed Omeprazole [PriLOSEC] 20 mg PO BID 02/17/17 12/30/18 Oxybutynin Chloride [Ditropan Xl] 15 mg PO DAILY 02/17/17 12/30/18 Ropinirole HCl 3 mg PO .1300 199902/17/17 12/30/18 Ropinirole HCl 4 mg PO QDBREAKFAST 02/17/17 12/30/18 Trihexyphenidyl HCl 2 mg PO TID 07/24/17 12/30/18 oxyCODONE/ACET 5/325 [Percocet 5 0.5 - 1 g PO Q4HR PRN MDD 4 tabs 07/24/17 12/30/18 mg/325 mg] Carbidopa/Levodopa [Rytary ER 1 cap PO BID 03/11/18 12/30/18 23.75 mg-95 mg Cap] Venlafaxine [Effexor] 75 mg PO QPM 06/09/18 12/30/18 Amantadine HCl [Amantadine] 100 mg PO TID 10/08/18 12/30/18 Acetaminophen [Tylenol] 650 mg PO Q6H PRN 11/27/18 12/30/18 Multivitamin/Iron/Folic Acid 1 tab PO DAILY 12/30/18 12/30/18 [Centrum Women Tablet] - Allergies Allergies/Adverse Reactions: Allergies Allergy/AdvReac Type Severity Reaction Status Date / Time No Known Drug Allergies Allergy Verified 08/20/18 12:25 Review of Systems - Constitutional Constitutional: reports: Fatigue, Weight stable (146.6). denies: Fever, Chills - Eyes Eyes: reports: Vision loss, Corrective lenses - Ears, Nose & Throat Ears, Nose & Throat: reports: Dental decay, Other (c/o swollen gums and more teeth decay; has not been to dentist for "decades"; many loose teeth; denies tooth pain) - Cardiovascular Cardiovascular: reports: Decr. exercise tolerance - Respiratory Respiratory: denies: Cough, SOB at rest, SOB with exertion - Gastrointestinal Gastrointestinal: reports: Good appetite. denies: Constipation, Nausea - Genitourinary Genitourinary: reports: Incontinence (intermittent; most often is continent) - Musculoskeletal Musculoskeletal: reports: Muscle pain, Stiffness, Muscle weakness, Assistive devices (has front wheeled walker using more when up) - Integumentary Integumentary: reports: Dryness, Other (c/o severe callous bottom of right foot) - Neurological Neurological: reports: General weakness, Memory problems (mild STM/impulsivity), Other (patient reports no further episodes of syncope or autonomic dysregulation last couple of weeks) - Psychiatric Psychiatric: reports: Depression (controlled), Anxiety (controlled) - Hematologic/Lymphatic Hematologic/Lymphatic: denies: Recurrent infections - All Other Systems All Other Systems: reports: Reviewed and negative Physical Exam - Vital Signs Temperature: 97.4 C Pulse Rate: 98 Respiratory Rate: 18 O2 Saturation: 94 (ra @ rest) Blood Pressure: 108/72 - Physical Exam General Appearance: positive: No acute distress, Alert Eyes Bilateral: positive: Normal inspection ENT: positive: Other (mouth with swollen gums; no abcesses noted) Neck: positive: No JVD, Trachea midline Cardiovascular: positive: Regular rate & rhythm Respiratory: positive: No respiratory distress, Breath sounds nml, Diminished in bases Abdomen: positive: Non-tender, Soft, Nml bowel sounds Skin: positive: Pallor, Dryness Extremities: positive: No pedal edema Neurologic/Psychiatric: positive: Oriented x3, Mood/affect nml Palliative Care - POLST Patient has POLST: Yes POLST Status: DNR, Selective Treatment Pain: Location (Pain continues on right side between ribs and hip, this is fluctuating in intensity. Denies significant pain today. Does use acetaminophen intermittently. Her pain of her RLS, is mostly addressed with her ropinirole and pedaling at night. This is when it most often exacerbates. She does take a half to full Oxycodone/APAP with good relief and ability to sleep.) Tiredness/Fatigue: Moderate (4-6) Drowsiness/Sedation: None Nausea: None Depression: Mild (1-3) Anxiety: Mild (1-3) Dyspnea: None Anorexia: None Sleep: Sleeps well Constipation: No Feelings of wellbeing/Perceived Quality of Life: Good, Acceptable, Worsening Performance Status: She does need assistance with bathing, has been does bathe with her she would not be able to bathe independently. We did discuss in transitioning to caregivers to assist with bathing secondary to caregiver fatigue. She finds this very difficult as far as her modesty. She does need meal prep, she is no longer able to participate in cooking. She is having decreased mobility, as a result less falls. She has difficulty getting from sitting to standing, less ability to tolerate ambulating longer distances. I would put her at PPS of 50% - Palliative Care Discussion: Patient does not perceive despite her advanced state, as far as what she would accept. She had been talked to by her neurologist about a continuous pump, she reports "I need to be a lot sicker, but by then it would be too late". She really does not wanted to do anything is going to complicate her make her caregiving situation more of a burden to her . She has felt more positive, as the caregivers have been taking her out for rides more. She is looking forward to a camping trip with her friends at the end of December, and celebrating her birthday. She feels currently her medications are to good place for managing her anxiety/depression. She was quite tearful last time, is bright and interactive with less complaints today. Patient does have a IVETTE ST with DNA R/limited additional interventions done September 2016 with myself. Her D VICTOR M is her Bill his cell phone is [phone] Impression and Recommendations - Palliative Care Impression: This is a 68-year-old woman who continues to struggle with the sequela of advanced Parkinson's, she does present today with decline in functional status, increasing lower extremity weakness. She continues to have difficulty with her dyskinesias, and falls frequently. Palliative care continues to provide support regarding depression, anxiety, and grief and loss. Recommendations/Counseling Done: 1. Gingivitis. Counseling provided regarding the role of dental health and overall health. She is not been for most likely a couple decades, did instruct if she were not going to follow-up with the dentist, should be at least doing rinses with chlorhexidine gluconate, there is a [id number] [employer]- Guard that has that as a ingredient. She did agree. 2. Advanced Parkinson's. Patient at this point is somewhat unwilling to change up her medications, she does have difficulty tracking her symptoms and remembering as far as being able to partner with her neurologist. She does remain quite impulsive, and now presents with some functional decline. Counseling again provided regarding safety, encouraged to remove the glass table from living room, she often is very poor follow-through on recommendations regarding safety. Both and caregivers remain concerned, falls have decreased in frequency as patient has been more chair/couch bound. 3. Right-sided thoracic pain. Patient has been using some positioning strategies provided last visit, she has used intermittent acetaminophen with relief. She is using oxycodone only at nighttime as she does get sedated from it. 4. Depression. Counseling provided regarding positive feedback given in response to cognitive behavioral techniques, they are getting her out with decreased isolation. Counseling again provided regarding normalize her current grief and loss process, they do have a short-term plan to go camping, she is looking forward to this. They will be referring to Dr. Lou in [place], as this will decrease stress on Bill. She did say "good bye" to Dr. Cartagena. 5. Advanced Pending. Patient does have a IVETTE ST in place with DNA R/selective treatment. She has demonstrated some increased functional decline, patient remains at most high risk for sequela of a fall. feels still currently can meet her needs at home, though is anxious about the future. Palliative care to continue provide support on a intermittent basis to address depression anxiety, safety and anticipatory guidance. Time Spent: 50 minutes with greater than 50% of this done in counseling regarding depression and anxiety and anticipatory guidance.
== END 2018-12-30 13:01 | disposition home or self-care (01) ==
LOC: PC 13:00
PROVIDERS: ATTEND Nurse Practitioner Adult Health
DX: Z51.5 Encounter for palliative care (principal); K05.10 Chronic gingivitis, plaque induced; G20 Parkinson's disease; M41.50 Other secondary scoliosis, site unspecified; G25.81 Restless legs syndrome; M54.6 Pain in thoracic spine; F32.9 Major depressive disorder, single episode, unspecified; F41.9 Anxiety disorder, unspecified; R41.3 Other amnesia; Z91.81 History of falling; Z79.899 Other long term (current) drug therapy; Z79.891 Long term (current) use of opiate analgesic; Z66 Do not resuscitate
CPT/HCPCS: 99349

== ENCOUNTER 2019-03-25 13:30 | Outpatient (CLI) | payer MEDICARE, OTHER, MEDICAID ==
--- NOTE | 2019-03-25 18:07 | CONSULTATION NOTE ---
Palliative Care Follow Up - Referral Referring Provider: Dr. Alec Aguilar Time of Visit: 2762-7223 Referral setting: Home Referral Reason: Advanced Parkinsons - Information Sources Records reviewed: Previous records reviewed History/Review of Systems obtained from: Patient, Family ( Bill) Exam limitations: No limitations - History of Present Illness Update Brief HPI Update: This is a feisty 69-year-old woman who lives with advanced Parkinson's, who suffers from severe dyskinesias, poor truncal strength leading to scoliosis to the right. She does have mild cognitive impairment resulting in impulsivity short-term memory loss, as well as ongoing falls. This is related to poor balance, falling has decreased somewhat as she is less able to get up independently. She currently has had no serious injuries, she is recently transitioned to a local neurologist Dr. Mariama Baker, with medication changes on 03/08. She was changed off the long-acting Rytary extended release 23.75 mg - 95 mg twice daily, she was to be taking carbidopa levodopa 25-100 mg up to 3 times daily with extended release at bedtime. She experienced severe increase in her dyskinesias, not only in the frequency but to extended time of them, but also in the severity of them. She did decrease her carbidopa levodopa 25-100 mg to twice daily. She presents is bad as I have ever seen her, with her dyskinesias. She reports as far as timing velasco the dyskinesias start in severity about 2 hours after medication, she gets a small break in the afternoon and then start up again after dinner. Her reports new symptom of dyskinesias at bedtime and through sleep. The severity of them feel like she is "punching". In observation she is writhing uncontrollably, she can quiet down with purpose only for short periods of time. She is found this much more debilitating and worries about her continued decline in quality of life. She is less been able to ambulate, even with assistance given the severity of her dyskinesias. She is to restart physical therapy, concern about efficacy of this given her current situation. Both patient and perceive she did better on the Rytary, as she has been having a slow decline and increase in severity of her symptoms over these last few months. She is also experienced increase in severity of her restless leg syndrome, she is on the ropinirole 3 mg 3 times daily, she has in the past been on higher dosing. Has been reports he did call the physician office, they do believe Dr. Baker is aware of changes made, but secondary to his memory loss does not recall the conversation. Patient reports she still has right-sided pain, takes oxycodone 1/2-1 tab at bedtime secondary to leg pain and needing for assistance to sleep. She denies drowsiness, nausea, her appetite is good but is as able to eat because of difficulty with self-feeding and feels like she may have lost some weight. She does feel even though she is distressed by her current situation and her current depression anxiety is controlled. She is though noting as severe decrease in her quality of life with her current situation with her dyskinesias. Social History - Living Situation Living arrangement: At home Living Situation: With spouse/s.o. Support System: She lives with her Isaiah, who continues to have severe memory problems and this becomes a source of tension between the 2 of them. She is quite worried about them. They do have [employer] for several hours a day and allows her some break. His greatest fear and concern of course is still her ongoing falls. She currently has stable caregiving and likes her current caregivers. Medications/Allergies - Medications Home Medications: Ambulatory Orders Medication Instructions Recorded Confirmed Omeprazole [PriLOSEC] 20 mg PO BID 02/17/17 03/26/19 Oxybutynin Chloride [Ditropan Xl] 15 mg PO DAILY 02/17/17 03/26/19 Ropinirole HCl 3 mg PO TID 02/17/17 03/26/19 Trihexyphenidyl HCl 2 mg PO TID 07/24/17 03/26/19 oxyCODONE/ACET 5/325 [Percocet 5 0.5 - 1 g PO Q4HR PRN MDD 4 tabs 07/24/17 03/26/19 mg/325 mg] Amantadine HCl [Amantadine] 100 mg PO TID 10/08/18 03/26/19 Acetaminophen [Tylenol] 650 mg PO Q6H PRN 11/27/18 03/26/19 Carbidopa/Levodopa [Carbidopa-Levo 1 tab PO BID 03/26/19 03/26/19 ER 25-100 Tab] Venlafaxine ER [Effexor ER] 75 mg PO DAILY 03/26/19 03/26/19 - Allergies Allergies/Adverse Reactions: Allergies Allergy/AdvReac Type Severity Reaction Status Date / Time No Known Drug Allergies Allergy Verified 08/20/18 12:25 Review of Systems - Constitutional Constitutional: reports: Fatigue, Weight loss - Eyes Eyes: reports: Vision loss, Corrective lenses (broke recent glasses) - Ears, Nose & Throat Ears, Nose & Throat: reports: Dental decay (encourage to get) - Cardiovascular Cardiovascular: reports: Decr. exercise tolerance - Respiratory Respiratory: denies: SOB at rest - Gastrointestinal Gastrointestinal: reports: Good appetite. denies: Constipation, Nausea, Reflux/ heartburn - Genitourinary Genitourinary: reports: Incontinence (mild a couple of times a month/wearing pads) - Musculoskeletal Musculoskeletal: reports: Stiffness, Muscle weakness, Other (needs contact assist for transfers and safe ambulation) - Integumentary Integumentary: reports: Rash (rash right ankle), Dryness, Other (plantars wart right foot-seeing dermatology) - Neurological Neurological: reports: General weakness, Memory problems (mild) - Psychiatric Psychiatric: reports: Depression, Anxiety - Hematologic/Lymphatic Hematologic/Lymphatic: denies: Recurrent infections - All Other Systems All Other Systems: reports: Reviewed and negative Physical Exam - Vital Signs Temperature: 97.8 C Pulse Rate: 98 Respiratory Rate: 18 O2 Saturation: 97 (ra @ rest) Blood Pressure: 132/72 - Physical Exam General Appearance: positive: Mild distress Eyes Bilateral: positive: Normal inspection ENT: positive: No signs of dehydration, Other (poor dentition) Neck: positive: No JVD, Trachea midline Cardiovascular: positive: Regular rate & rhythm Abdomen: positive: Soft, Nml bowel sounds Skin: positive: Pallor, Rash (raised rash quarter size medial of right ankle) Neurologic/Psychiatric: positive: Oriented x3, Mood/affect nml, Weakness, Flat affect Palliative Care - POLST Patient has POLST: Yes POLST Status: DNR, Selective Treatment Pain: Pain unchanged, Location (right rib side area excerabated by scoliosis and positioning) Tiredness/Fatigue: Moderate (4-6) Drowsiness/Sedation: None Nausea: None Depression: Mild (1-3) Anxiety: Mild (1-3) Dyspnea: None Anorexia: None Sleep: Variable sleep pattern Constipation: No Feelings of wellbeing/Perceived Quality of Life: Fair, Acceptable, Worsening Performance Status: Patient needing contact assist and supervision for ambulation secondary to fall risk, and dyskinesias. She does need assistance from sitting to standing, and bathing. She is unable to reposition herself in bed. She is still attempting to feed herself, though reports this is becoming more complicated. She is also having some increased choking which is a new symptom for her. - Palliative Care Discussion: Patient is somewhat discouraged by the increase in frequency and severity of her dyskinesias, it is impacting her quality of life and making things more difficult for her and for caregiving. She does perceive this as a result of her medication changes, she is due back to see the neurologist, but she does have short-term memory issues and impulses to the discussed with send my note and description of her current situation to assist with evaluation. She continues to worry about her , who is having short-term memory issues, and worried about her care giving needs increasing. She continues to be quite resilient, reports her depression and anxiety despite her decline are well controlled. Patient does have a POLST with DNA R/limited additional interventions done September 2016 with myself. Her DPOAE is her Isaiah hawkins his cell phone is [phone]. Impression and Recommendations - Palliative Care Impression: This 69-year-old woman who continues to struggle with the sequela of advanced Parkinson's, she does present with increasing severity and frequency of her dyskinesias impacting her quality of life. Palliative care continues to provide support regarding depression anxiety and grief and loss as well as provide anticipatory guidance and coordination of care. Recommendations/Counseling Done: 1. Gingivitis. Counseling again provided regarding the role of dental health and overall health, she has not followed through on getting the [employer]- Guard. Did encourage to follow-up with dentist, but this is not happened either. 2. Advanced Parkinson's. Patient does have difficulty tracking her symptoms remembering as far as being able to partner with her neurologist. She continues to be quite impulsive, presents with functional decline, now with change in her dyskinesias. Counseling is provided regarding safety again encouraged to remove glass table from living room. Will follow up with her new neurologist Dr. Baker regarding observations and response to current medication changes. Patient has been more chair/couch bound with decreased activity. Did encourage patient in the context of the Parkinson's [facility] program and PT to follow through. She has not made any appointments yet. 3.Right-sided thoracic pain. This is related to her scoliosis and continued poor positioning. Patient often forgets to position with pillows, she is using acetaminophen during the day, and oxycodone at nighttime as she does get sedation. 4. Depression. Counseling provided, encouraged again to decrease her isolation, encouraged to follow through on Parkinson's programs as this would allow her to engage more in outings. She feels currently her antidepressant is at a good level. 5. Advanced care planning. Patient does have a POLST in place with DNA R/selective treatment. She does demonstrate some increase in functional and cognitive decline, her highest risk is for sequela of a fall. Currently they are able to meet her needs in her home setting, but anxious about the future. Palliative care to continue provide support on an intermittent basis to address depression, anxiety, safety, and anticipatory guidance. Time Spent: 60 minutes with greater than 50% of this done in counseling, exploration occurrence situation with coordination of care with neurology, and anticipatory guidance.
== END 2019-03-25 13:31 | disposition home or self-care (01) ==
LOC: PC 13:30
PROVIDERS: ATTEND Nurse Practitioner Adult Health
DX: G20 Parkinson's disease (principal); G24.9 Dystonia, unspecified; G25.81 Restless legs syndrome; R29.6 Repeated falls; M41.40 Neuromuscular scoliosis, site unspecified; M54.6 Pain in thoracic spine; R41.3 Other amnesia; K05.10 Chronic gingivitis, plaque induced; F41.8 Other specified anxiety disorders; Z79.899 Other long term (current) drug therapy; Z79.891 Long term (current) use of opiate analgesic; Z91.81 History of falling; Z66 Do not resuscitate
CPT/HCPCS: 99349

== ENCOUNTER 2019-05-25 19:24 | Emergency (ER) | payer MEDICARE, OTHER, MEDICAID ==
[2019-05-25 22:43] VITALS: BP 135/67
--- NOTE | 2019-05-25 23:23 | ED Physician Documentation ---
PD HPI Fall - Stated complaint Stated Complaint: GLF - Chief complaint Chief Complaint: General - History obtained from History obtained from: Patient, Family - History of Present Illness Mechanism of injury: Slipped Fall distance: Standing position Where injury occurred: Home Timing - onset: Enter time (1800), Today Injury(ies) location: Head, Chest, Right Lower Extremity Quality of pain: Pain Associated symptoms: No: LOC, AMS, Amnesia, Seizures, Ear drainage, Nasal drainage, Neck pain, Weakness, Paresthesias, Dyspnea, Nausea / vomiting, Hematemesis, Abdominal distension Symptoms improve with: Rest Worsens with: Movement Contributing factors: No: Anticoagulated Similar symptoms before: Diagnosis (falls with parkinsons) Recently seen: Clinic - Additional information Additional information: 69-year-old female with advanced Parkinson's was in her bathroom today when she slipped and fell backwards into her tub. She did strike her head she also has pain in her right hip and right lower chest. She states her pain in her right lower chest is why she is here. She is not having difficulty breathing. She was in to see her neurologist and has had her Parkinson's doses cut as she is sensitive to the carbidopa levodopa which increase her akathisia. Review of Systems Constitutional: denies: Fever Eyes: denies: Decreased vision Ears: denies: Ear pain Nose: denies: Rhinorrhea / runny nose, Congestion Throat: denies: Sore throat Cardiac: reports: Chest pain / pressure. 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 - Present Medications Home Medications: Ambulatory Orders Medication Instructions Recorded Confirmed Omeprazole [PriLOSEC] 20 mg PO BID 02/17/17 03/26/19 Oxybutynin Chloride [Ditropan Xl] 15 mg PO DAILY 02/17/17 03/26/19 Ropinirole HCl 3 mg PO TID 02/17/17 03/26/19 Trihexyphenidyl HCl 2 mg PO TID 07/24/17 03/26/19 oxyCODONE/ACET 5/325 [Percocet 5 0.5 - 1 g PO Q4HR PRN MDD 4 tabs 07/24/17 03/26/19 mg/325 mg] Amantadine HCl [Amantadine] 100 mg PO TID 10/08/18 03/26/19 Acetaminophen [Tylenol] 650 mg PO Q6H PRN 11/27/18 03/26/19 Carbidopa/Levodopa [Carbidopa-Levo 1 tab PO BID 03/26/19 03/26/19 ER 25-100 Tab] Venlafaxine ER [Effexor ER] 75 mg PO DAILY 03/26/19 03/26/19 - Allergies Allergies/Adverse Reactions: Allergies Allergy/AdvReac Type Severity Reaction Status Date / Time No Known Drug Allergies Allergy Verified 05/25/19 19:41 - Social History Does the pt smoke?: No Smoking Status: Never smoker Does the pt drink ETOH?: No Does the pt have substance abuse?: No - Immunizations Immunizations are current?: Yes - POLST Patient has POLST: Yes PD ED PE NORMAL - Vitals Vital signs reviewed: Yes (hypertensive mild ) - General General: Alert and oriented X 3, No acute distress, Well developed/nourished - HEENT HEENT: Atraumatic, PERRL, EOMI, Other (dry mucous membranes. There is minimal tenderness to the left frontal scalp without obvious bruise. ) - Neck Neck: Supple, no meningeal sign, No bony TTP - Cardiac Cardiac: RRR, No murmur - Respiratory Respiratory: No respiratory distress, Clear bilaterally, Other (There is specific point tenderness to the right lower rib cage over the costal margin laterally. There is not kidney tenderness. ) - Abdomen Abdomen: Normal bowel sounds, Soft, Non tender, Non distended, No organomegaly - Back Back: No CVA TTP, No spinal TTP - Derm Derm: Normal color, Warm and dry, No rash - Extremities Extremities: No deformity, No edema, Other (There is normal ROM of the ankle knee and hip on the right side without significant pain ) - Neuro Neuro: Alert and oriented X 3, c architect 2-12 intact, No motor deficit, No sensory deficit, Normal speech Eye Opening: Spontaneous Motor: Obeys Commands Verbal: Oriented GCS Score: 15 - Psych Psych: Normal mood, Normal affect Results - Vitals Vitals: Vital Signs - 24 hr 05/25/19 05/25/19 19:37 22:42 Temperature 36.2 C L 36.2 C L Heart Rate 90 81 Respiratory 19 16 Rate Blood Pressure 152/68 H 135/67 H O2 Saturation 100 100 Oxygen O2 Source Room air - Rads (name of study) ribs w/pa chest Radiology: Prelim report reviewed (Impression: Unremarkable chest and right rib radiography. No rib fracture visualized.), EMP read indepedently, See rad report Procedures - Bedside sono Bedside sono by EMP: With use of bedside ultrasound the right kidney is imaged and there is no blood in the hepatorenal interface. The area is not sonographically tender. PD MEDICAL DECISION MAKING - ED course Complexity details: considered differential, d/w patient, d/w family ED course: 69-year-old female with advanced heart concerns disease had a subtle fall in her shower today and has injured her right lower rib cage. She did hit her head she did not have loss of consciousness she denies any significant headache and she has no pain referred to her neck. She does have some tenderness to the right lower rib area and no evidence of internal hemorrhage on bedside ultrasound exam. She is moving good air and an x-ray of the ribs and chest are obtained. Departure - Departure Disposition: 01 Home, Self Care Clinical Impression: Contusion of chest wall Qualifiers: Encounter type: initial encounter Laterality: right Qualified Code(s): S20.211A - Contusion of right front wall of thorax, initial encounter Condition: Stable Instructions: ED Contusion Rib Follow-Up: Alec Aguilar MD [Primary Care Provider] -
--- NOTE | 2019-05-26 00:10 | XRAY Report ---
Reason: fall lower right rib contusion Procedure Date: 05/25/2019 Accession Number: [id number] / [id number] Procedure: XR - Ribs w/PA Chest RT CPT Code: FULL RESULT: EXAM: RIGHT RIB RADIOGRAPHY EXAM DATE: 05/25/2019 11:59 PM. CLINICAL HISTORY: Fall lower right rib contusion. COMPARISON: RIBS W/PA CHEST RT 08/25/2018 4:11 PM. TECHNIQUE: 1 view of the chest and 2 views of the right ribs. FINDINGS: Bones: No acute fracture or bone lesion. Lungs: No focal opacities. No pneumothorax. No pleural effusions. Mediastinum: Heart and mediastinal contours are unremarkable. Other: None. IMPRESSION: Unremarkable chest and right rib radiography. No rib fracture visualized. [facility]
== END 2019-05-26 00:36 | disposition home or self-care (01) ==
LOC: ED 19:24
DX: S20.211A Contusion of right front wall of thorax, initial encounter (principal); W01.198A Fall on same level from slipping, tripping and stumbling with subsequent striking against other object, initial encounter; Y92.002 Bathroom of unspecified non-institutional (private) residence as the place of occurrence of the external cause; G20 Parkinson's disease
CPT/HCPCS: 99281; 99282

== ENCOUNTER 2019-06-02 12:30 | Outpatient (CLI) | payer MEDICARE, OTHER, MEDICAID ==
--- NOTE | 2019-06-02 18:44 | CONSULTATION NOTE ---
Palliative Care Follow Up - Referral Referring Provider: Dr. Alec Aguilar Time of Visit: 5215-4190 Referral setting: Home Referral Reason: Advanced Parkinsons/Depresssion - Information Sources Records reviewed: Previous records reviewed History/Review of Systems obtained from: Patient, Family ( Bill) Exam limitations: Clinical condition (patient with some STM issues) - History of Present Illness Update Brief HPI Update: This remains a feisty 69-year-old woman with advanced Parkinson, who suffers from severe dyskinesias, poor truncal strength, and scoliosis to the right. 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 She reports she is falling daily, part of this is she had a corn/wart treated on her right foot so is no longer painful, so she is up more. She does appear to have had weight loss, she reports she is at 143. She had recently had her carbidopa levodopa decreased, her perception is it is better, with decreased shaking, but has noted increased freezing and balance issues. Her thinks it is continuing to progress without any impact. Patient today is somewhat subdued, she reports she slept poorly last night, she was up about an hour using her peddler for her restless leg syndrome. Her voice is much weaker and softer, she is having more difficulty enunciating her words. She does not seem any different as far as cognitive baseline, though her reports he is noticed a decline. She feels like her 's memory is worse, but they continue to work it out. He is concerned though with her increased falling and increased care needs how much longer he is going to be able to manage her at home. Her fall did result in hitting her head, she did not get a CT scan, but did have residual right hip and right rib pain. She reports there is no contusion, no evidence of contusion noted, there is still some point tenderness on her right side, though this is been somewhat long-term. She continues with mild anxiety, reports currently it is well controlled. She feels her depressive symptoms are controlled as well, though does get quite tearful regarding her increased dependence. She does feel her current quality of life is still acceptable, but is aware of the seriousness of her illness just does not like to "talk about it". Social History - Living Situation Living arrangement: At home Living Situation: With spouse/s.o. Support System: Patient is cared for mostly by her , she does have [employer] workers that do provide several hours of respite for him. She is dependent for bathing, standby assist and contact-guard for ambulation, she is still able to self feed though she reports "this is messy". Medications/Allergies - Medications Home Medications: Ambulatory Orders Medication Instructions Recorded Confirmed Omeprazole [PriLOSEC] 20 mg PO BID 02/17/17 06/03/19 Oxybutynin Chloride [Ditropan Xl] 15 mg PO DAILY 02/17/17 06/03/19 Ropinirole HCl 3 mg PO TID 02/17/17 06/03/19 Trihexyphenidyl HCl 2 mg PO TID 07/24/17 06/03/19 oxyCODONE/ACET 5/325 [Percocet 5 0.5 - 1 g PO Q4HR PRN MDD 4 tabs 07/24/17 06/03/19 mg/325 mg] Amantadine HCl [Amantadine] 100 mg PO TID 10/08/18 06/03/19 Acetaminophen [Tylenol] 650 mg PO Q6H PRN 11/27/18 06/03/19 Carbidopa/Levodopa [Carbidopa-Levo 0.5 tab PO BID 03/26/19 06/03/19 ER 25-100 Tab] Venlafaxine ER [Effexor ER] 75 mg PO DAILY 03/26/19 06/03/19 - Allergies Allergies/Adverse Reactions: Allergies Allergy/AdvReac Type Severity Reaction Status Date / Time No Known Drug Allergies Allergy Verified 05/25/19 19:41 Review of Systems - Constitutional Constitutional: reports: Fatigue, Weight loss (143). denies: Fever, Chills - Eyes Eyes: reports: Vision loss - Ears, Nose & Throat Ears, Nose & Throat: reports: Postnasal drainage, Dental decay, Dry mouth - Cardiovascular Cardiovascular: reports: Decr. exercise tolerance - Respiratory Respiratory: denies: SOB at rest - Gastrointestinal Gastrointestinal: reports: Reflux/heartburn (reports ran out of omeprazole and had recurrent GERD "so it's working"), Good appetite. denies: Constipation - Genitourinary Genitourinary: reports: Incontinence (occasional) - Musculoskeletal Musculoskeletal: reports: Muscle pain, Stiffness, Limited range of motion, Muscle weakness, Joint pain (right residual rib/hip pain) - Integumentary Integumentary: reports: Dryness, Other (having "warts" treated on right ankle with dermatology; callous/wart on right foot resolved with better pain control and can walk) - Neurological Neurological: reports: General weakness, Dizziness (with standing), Memory problems, Slurred speech (voice much more difficult to understand) - Psychiatric Psychiatric: reports: Depression, Anxiety, Hallucinations - Hematologic/Lymphatic Hematologic/Lymphatic: reports: Recurrent infections (treated for cellulitis of right ankle) - All Other Systems All Other Systems: reports: Reviewed and negative Physical Exam - Vital Signs Temperature: 97.0 C Pulse Rate: 85 Respiratory Rate: 18 O2 Saturation: 97 (ra @ rest) Blood Pressure: 142/82 - Physical Exam General Appearance: positive: No acute distress, Alert Eyes Bilateral: positive: Other (more drifting of "lazy eyes"; feels it is related to her fatigue today; up late last night) ENT: positive: No signs of dehydration, Other (poor dental health; does not want to go to dentish) Neck: positive: No JVD, Trachea midline Cardiovascular: positive: Regular rate & rhythm Respiratory: positive: No respiratory distress, Breath sounds nml Abdomen: positive: Soft, Nml bowel sounds Skin: positive: Pallor, Wound (right medial aspect; had chemically treated; dark rudd eschar about 2 cm area; periarea without erythema; is due to see derm tomorrow) Extremities: positive: No pedal edema, Other Neurologic/Psychiatric: positive: Oriented x3, Mood/affect nml, Weakness, Slurred/abnml speech, Flat affect Palliative Care - POLST Patient has POLST: Yes POLST Status: DNR, Selective Treatment Pain: Location (see HPI; right rib, not needing medicaton RLE where wound is) Tiredness/Fatigue: Moderate (4-6) Drowsiness/Sedation: Mild (1-3) Nausea: None Depression: Mild (1-3) Anxiety: Mild (1-3) Dyspnea: None Anorexia: None Sleep: Variable sleep pattern Constipation: No Feelings of wellbeing/Perceived Quality of Life: Fair, Acceptable Performance Status: Patient does require maximum assist with bathing, she needs more supervision because of her freezing, though she tends to just sit down when she is going to fall. She has had a fall this last week that resulted in ED visit. Is been continues to be quite stressed by her frequent falling, related to her concern for injury. She does need assistance from sitting to standing and is unable to reposition herself in bed. She has had some intermittent difficulty with swallowing though reports this has not progressed since last visit. - Palliative Care Discussion: Patient continues to do the best she can given her situation, she is always been "a fighter". She reports her best time is in the morning for a few hours, as when she starts Carbidopa levodopa at noon, about 20 minutes later she starts the dyskinesias. She reports that she skips it altogether, though she has increased freezing and less energy. She is still finds things to bring her kellie and quality of life, she enjoys visiting with her caregivers, and intermittent visits with her family. She is less able to go out, and has enjoyed shopping less. She feels her depression and anxiety are currently controlled, she does appreciate a place to express her concerns with palliative care. Patient does have a POLST in place with DNA R/limited interventions done 09/2016 with myself. Her DPOAE is her Isaiah Mitchell's cell phone is [phone]. Impression and Recommendations - Palliative Care Impression: This is a 69-year-old woman who continues to his struggle with the sequela of her advanced Parkinson's disease, they have been continuing to titrate her medications without much impact as the severity of frequency of her dyskinesias continue. She has had more freezing, some cognitive decline, and now with the injury fall. Palliative care continue to provide support regarding depression, anxiety, grief and loss as well as providing anticipatory guidance and coordination of care. Recommendations/Counseling Done: 1. Advanced Parkinson's. Patient with recent adjustments of medications, patient perception is better, 's observation is worse. She continues to be quite impulsive, having more frequent falls, freezing, now with injury resulting in ED stay. Counseling provided regarding safety again, encouraged to remove glass table from living room. Patient continues with slow decline, but tries to take it a day at a time. 2. Right-sided thoracic/hip pain. Patient does have baseline pain on her right secondary to her scoliosis. With her fall and contusion this is exacerbated it, she does report it is improving but still quite uncomfortable but not of such she needs to take pain medication. 3. Depression. Patient feels current depressive symptoms are under control, counseling again required to review recommendations to decrease her isolation, has not followed through on any of the Parkinson's programs, but uses our time for expression of concerns and emotional response to ongoing losses. 4. Right lower extremity wound. She is working with dermatology, patient is at high risk for infection, and frequent reinjury. Assisted with changing bandage. 5. Advanced care planning. Patient's goals are to remain in the home as long as possible, her is experiencing caregiver fatigue, but they are using the [employer] program. and patient feels like they can continue as long as she is at current level of functioning. Patient does have a POLST in place, as well as DPOA. She is on [facility], and if needed placement has already prequalified. Time Spent: 85 minutes with getting 50% of this done in counseling regarding follow-up from ED visit, safety, depression anxiety, and anticipatory guidance. Palliative care to remain available for support, plan to visit in 6 to 8 weeks
== END 2019-06-02 12:31 | disposition home or self-care (01) ==
LOC: PC 12:30
PROVIDERS: ATTEND Nurse Practitioner Adult Health
DX: Z51.5 Encounter for palliative care (principal); G20 Parkinson's disease; R29.6 Repeated falls; M25.551 Pain in right hip; R07.81 Pleurodynia; F32.9 Major depressive disorder, single episode, unspecified; Z79.899 Other long term (current) drug therapy; Z66 Do not resuscitate
CPT/HCPCS: 99349

== ENCOUNTER 2019-08-04 15:03 | Outpatient (CLI) | payer MEDICARE, OTHER, MEDICAID ==
--- NOTE | 2019-08-04 18:44 | CONSULTATION NOTE ---
Palliative Care Follow Up - Referral Referring Provider: Dr. Alec Aguilar Time of Visit: [id number] Referral setting: Home Referral Reason: Advanced Parkinsons - Information Sources Records reviewed: Previous records reviewed History/Review of Systems obtained from: Patient, Family ( Bill present) Exam limitations: Clinical condition (patient with continued STM issues;) - History of Present Illness Update Brief HPI Update: This is a 69-year-old woman with advanced Parkinson, who at baseline usually has severe dyskinesias, though I have not seen any other than a little tremors today, she does continue with progressive poor truncal strength and leaning to the right in conjunction with her scoliosis. She reports she has changed her carbidopa levodopa on her own, to half tab twice daily, though she does not remember that this was consistent with what she was taking last time I met with her in May. Her perception is again that when she takes it it produces the dyskinesias, and they have been better at the lower dose. She continues to report falling daily, though now describes symptoms of autonomic dysfunction, with with standing or walking will get "whooshing" feeling like she is going to faint. She has not had true syncope, and on examination she is orthostatic. She does report good food and fluid intake. The other changes she is having choking now with eating, this happens with both solid food and coffee as well. She reports she is able to clear her airway but has done nothing to modify her diet. She does look somewhat more thinner to me, but her weight is consistent at 142 it was 143 last time. She does perceive she is "in limbo", she denies weakness though is describing decreased functional status. Part of this is limited in the context of her "whooshing". She is using the walker as a wheelchair, when she goes out, she has been going to the wound clinic clinic twice a week for a right lower extremity wound. Unclear if this was trauma to begin with, she does not appear to understand the underlying etiology. She is due to see her neurologist again 08/23. Symptom burden, she continues with right-sided pain most likely due to her pressure and scoliosis, fatigue, now presents with choking, reports depression and anxiety currently managed on current regimen. Social History - Living Situation Living arrangement: At home Living Situation: With spouse/s.o. Medications/Allergies - Medications Home Medications: Ambulatory Orders Medication Instructions Recorded Confirmed Omeprazole [PriLOSEC] 20 mg PO BID 02/17/17 08/05/19 Oxybutynin Chloride [Ditropan Xl] 15 mg PO DAILY 02/17/17 08/05/19 Ropinirole HCl 3 mg PO .4 MG/3MG/3MG 02/17/17 08/05/19 Trihexyphenidyl HCl 2 mg PO TID 07/24/17 08/05/19 oxyCODONE/ACET 5/325 [Percocet 5 0.5 - 1 g PO Q4HR PRN MDD 4 tabs 07/24/17 08/05/19 mg/325 mg] Amantadine HCl [Amantadine] 100 mg PO TID 10/08/18 08/05/19 Acetaminophen [Tylenol] 650 mg PO Q6H PRN 11/27/18 08/05/19 Carbidopa/Levodopa [Carbidopa-Levo 0.5 tab PO BID 03/26/19 08/05/19 ER 25-100 Tab] Venlafaxine ER [Effexor ER] 75 mg PO DAILY 03/26/19 08/05/19 - Allergies Allergies/Adverse Reactions: Allergies Allergy/AdvReac Type Severity Reaction Status Date / Time No Known Drug Allergies Allergy Verified 05/25/19 19:41 Review of Systems - Constitutional Constitutional: reports: Fatigue, Weight stable (142-1 pound weight loss since May). denies: Fever - Eyes Eyes: reports: Vision loss, Corrective lenses - Ears, Nose & Throat Ears, Nose & Throat: reports: Dental decay (has lost two more teeth; has not followed up with dentist). denies: Dental pain - Cardiovascular Cardiovascular: reports: Lightheadedness, Decr. exercise tolerance. denies: Syncope (has not fainted but at least daily feels "whooshy" and has to sit down) - Respiratory Respiratory: denies: Cough, SOB at rest - Gastrointestinal Gastrointestinal: reports: Good appetite, Other (choking with eating). denies: Reflux/heartburn (currently controlled) - Genitourinary Genitourinary: reports: Incontinence (no specific pattern; intermittent but not daily) - Musculoskeletal Musculoskeletal: reports: Stiffness, Limited range of motion, Muscle weakness, Assistive devices (uses walker for "wheeling" outside of home), Other (continue with daily falls/balance issues; worsening now with feelings of going to faint) - Integumentary Integumentary: reports: Dryness, Other (with RLE wound going to wound clinic 2 x a week) - Neurological Neurological: reports: General weakness, Dizziness, Memory problems (patient perceives these are worsening; does demonstrate some forgetfulness/word finding no confusion noted), Other (speech much more quiet; difficulty to understand ennuciation) - Psychiatric Psychiatric: reports: Depression, Anxiety - Hematologic/Lymphatic Hematologic/Lymphatic: denies: Recurrent infections - All Other Systems All Other Systems: reports: Reviewed and negative Physical Exam - Vital Signs Temperature: 97.6 C Pulse Rate: 76 Respiratory Rate: 18 Blood Pressure: 122/80 (sitting; 82/68 standing with symptoms of dizzyness) - Physical Exam General Appearance: positive: Alert Eyes Bilateral: positive: Normal inspection ENT: positive: Other (poor dentition;) Neck: positive: Trachea midline Cardiovascular: positive: Regular rate & rhythm Respiratory: positive: No respiratory distress, Breath sounds nml, Diminished in bases Abdomen: positive: Soft Skin: positive: Pallor, Dryness, Wound (covered in dressing;) Extremities: positive: Pedal edema (slight pedal edema noted ankles; left greater than right) Neurologic/Psychiatric: positive: Oriented x3, Mood/affect nml, Weakness, Flat affect Palliative Care - POLST Patient has POLST: Yes POLST Status: DNR, Selective Treatment Pain: Pain worsening, Location (right side; patient with scoliosis worsening; using oxycodone at night only;) Tiredness/Fatigue: Moderate (4-6) Depression: Mild (1-3) (feels currently managed) Anxiety: Mild (1-3) Feelings of wellbeing/Perceived Quality of Life: Fair, Worsening, Comment (feels things are getting a little "more worse") Sleep: Sleeps well Constipation: No Performance Status: Patient is not been able to shower mostly related to her wound care. He does report though she is aware her functional status is decreasing, and less able to ambulate. This is also attribute some to her feelings she may collapse "whooshing". Because of her balance and unsteadiness, as well as her impulsivity, she does need contact and supervised assist with ambulation, though does not always wait for her caregivers her to provide this. She reports she continues to have daily falls, though nothing with injury. - Palliative Care Discussion: Patient does admit to feeling like she is in limbo, does recognize some changes in her decline. She does not feel she has had any increase in her depressive symptoms, and continues to manage on a day-to-day basis. Patient does have a POLST in place, with DNA R/selective treatments. Patient has always defaulted to this is acceptable quality of life, this seems more tenuous today. She is due to see the neurologist, will CC my note to her. Impression and Recommendations - Palliative Care Impression: This is a 69-year-old woman who continues to struggle with the sequela of her advanced Parkinson's disease, has not had much response to titration of her medications, and does note increasing symptoms. Of concern she presents today with increased symptoms of autonomic dysfunction, choking, and in increased cognitive changes. Palliative care continue provide support regarding symptom burden, anticipatory guidance and coordination of care. Recommendations/Counseling Done: 1. Advanced Parkinson's. Patient continues with both functional and cognitive decline, today she does not present with acute dyskinesia's, but has had ongoing Progressive functional and cognitive decline. She is wondering about her medication regimen, if Carbidopa levodopa is actually adding to her symptom burden. Patient continues with restless leg syndrome, uses her peddler to modify discomfort. She is presenting today with new symptoms of autonomic dysfunction and dysphagia. 2. Autonomic dysfunction. Patient does present with orthostatic hypotension and appears symptomatic. Does appear she has adequate fluid intake. Given this is when reading, request that she take her blood pressure daily, and again when she is having these episodes. Has been is locating blood pressure cuff. Will defer to neurologist regarding choice of medication, for consideration of midodrine if logs reflect progressive symptoms patient describing. 3. Dysphagia. Follow-up with Yamileth HUGHES, she is familiar with patient from previous referrals, willing to evaluate patient and ordered barium swallow if indicated. Patient would like to see her up at [facility], referral sent. 4. Right-sided thoracic/hip pain. Patient continues with discomfort secondary to her scoliosis and positioning. Counseling provided regarding positioning and padding for decrease pressure. She has been trained in the past with physical therapy regarding proper positioning and encouraged to continue or integrate suggestions. 5. Depression. Patient feels current depression and anxiety symptoms are managed. She has been able to decrease her isolation, is going out at least twice a week to the wound care clinic, she continues with concerns regarding her 's memory loss. 6. Right lower extremity wound. She is now working with wound care clinic, she reports she has had 4 rounds of antibiotics, currently has compression stocking on wound not examined. At this point time she is tolerating going out for wound care, can initiate home health care if this becomes too much related to fatigue. Time Spent: 45 minutes with greater than 50% of this done in counseling regarding symptom management and anticipatory guidance as well as coordination of care for speech therapy.
== END 2019-08-04 15:04 | disposition home or self-care (01) ==
LOC: PC 15:03
PROVIDERS: ATTEND Nurse Practitioner Adult Health
DX: Z51.5 Encounter for palliative care (principal); G20 Parkinson's disease; I95.1 Orthostatic hypotension; R29.6 Repeated falls; M41.9 Scoliosis, unspecified; R13.10 Dysphagia, unspecified; F41.8 Other specified anxiety disorders; R23.9 Unspecified skin changes; Z79.899 Other long term (current) drug therapy; Z79.891 Long term (current) use of opiate analgesic; Z66 Do not resuscitate
CPT/HCPCS: 99349

== ENCOUNTER 2019-09-15 13:25 | Outpatient (CLI) | payer MEDICARE, OTHER, MEDICAID ==
--- NOTE | 2019-09-15 16:54 | CONSULTATION NOTE ---
Palliative Care Follow Up - Referral Referring Provider: Dr. Alec Aguilar Time of Visit: [phone] Referral setting: Home Referral Reason: Advanced Parkinsons - Information Sources Records reviewed: Previous records reviewed History/Review of Systems obtained from: Patient, Caregiver Exam limitations: Clinical condition (patient with worsening STM issues) - History of Present Illness Update Brief HPI Update: This a 69-year-old woman with advanced Parkinson's, who has at baseline severe dyskinesias, she reports these have improved with modification of her medications, today she does present with some upper extremity tremors. She does get worse with anxiety, she double book herself today, and is waiting to get to speech therapy. She continues to follow a regular basis, describes symptoms of automatic dysfunction, she is not had any true syncope but on examination remains orthostatic. She does have reasonable food and fluid intake, but is having difficulty with choking, unfortunately she had episode of nausea and vomiting last time and was unable to make it to her speech therapy and canceled her palliative care visit. She does present with improved mood today, she perceives currently she is at a plateau. She reports no changes from her neurology appointment, and is anxious to meet with speech therapy. Her wound on her right lower extremity has healed, she has no further need to return to the wound clinic. She is awaiting to make an appointment regarding her teeth, as they continue to deteriorate. She continues with right-sided pain, she has poor truncal support, leans to the right and has scoliosis, she has reinjured her right elbow several times, currently there is no swelling or signs of trauma. Social History - Living Situation Living arrangement: At home Living Situation: With spouse/s.o. Support System: She lives at home with her , who does have short-term memory issues as well. This is of great concern to her, he was to follow-up with neurology but canceled his appointment. Has regular caregivers through [facility], this does allow the patient's to have some respite. She did see her daughter over [employer], she found this to be quite uplifting Medications/Allergies - Medications Home Medications: Ambulatory Orders Medication Instructions Recorded Confirmed Omeprazole [PriLOSEC] 20 mg PO BID 02/17/17 09/15/19 Oxybutynin Chloride [Ditropan Xl] 15 mg PO DAILY 02/17/17 09/15/19 Ropinirole HCl 3 mg PO .4 MG/3MG/3MG 02/17/17 09/15/19 Trihexyphenidyl HCl 2 mg PO TID 07/24/17 09/15/19 oxyCODONE/ACET 5/325 [Percocet 5 0.5 - 1 g PO Q4HR PRN MDD 4 tabs 07/24/17 09/15/19 mg/325 mg] Amantadine HCl [Amantadine] 100 mg PO TID 10/08/18 09/15/19 Acetaminophen [Tylenol] 650 mg PO Q6H PRN 11/27/18 09/15/19 Carbidopa/Levodopa [Carbidopa-Levo 0.5 tab PO BID 03/26/19 09/15/19 ER 25-100 Tab] Venlafaxine ER [Effexor ER] 75 mg PO DAILY 03/26/19 09/15/19 Lactobacillus Acidophilus 1 tab PO DAILY 09/15/19 09/15/19 [Probiotic Acidophilus] Multivitamin [Multivitamins] 1 tab PO DAILY 09/15/19 09/15/19 - Allergies Allergies/Adverse Reactions: Allergies Allergy/AdvReac Type Severity Reaction Status Date / Time No Known Drug Allergies Allergy Verified 05/25/19 19:41 Review of Systems - Constitutional Constitutional: reports: Fatigue. denies: Fever, Chills - Eyes Eyes: reports: Vision loss, Corrective lenses - Ears, Nose & Throat Ears, Nose & Throat: reports: Dental decay (two missing teeth; has not followed through on dentist appointment), Dry mouth - Cardiovascular Cardiovascular: reports: Decr. exercise tolerance - Respiratory Respiratory: reports: SOB with exertion - Gastrointestinal Gastrointestinal: reports: Constipation, Good appetite. denies: Nausea, Reflux/heartburn - Genitourinary Genitourinary: reports: Incontinence (only occasionally) - Musculoskeletal Musculoskeletal: reports: Muscle pain, Back pain, Muscle aches, Stiffness, Limited range of motion, Muscle weakness, Assistive devices (using walker for short distances), Transfer issues (wheelchair for longer related to orthostatic hypotension) - Integumentary Integumentary: reports: Lesions (on right ankle healed), Dryness - Neurological Neurological: reports: Dizziness, Memory problems (appear worsening; repeated multiple stories and poor recall in context of timeline; not confused), Incoordination, Slurred speech (voice weaker) - Psychiatric Psychiatric: reports: Depression, Anxiety, Hallucinations (continues with cat hallucinations about 4 x a week; not fearfull) - Endocrine Endocrine: reports: Intolerance to cold - Hematologic/Lymphatic Hematologic/Lymphatic: denies: Recurrent infections - All Other Systems All Other Systems: reports: Reviewed and negative Physical Exam - Vital Signs Temperature: 97.3 C Pulse Rate: 83 Respiratory Rate: 18 O2 Saturation: 93 (ra @ rest) Blood Pressure: 142/93 - Physical Exam General Appearance: positive: Alert, Anxious (getting ready to go out for ST evaluation) Eyes Bilateral: positive: Normal inspection, No lid inflammation ENT: positive: No signs of dehydration Neck: positive: No JVD, Trachea midline Cardiovascular: positive: Regular rate & rhythm Respiratory: positive: No respiratory distress, Breath sounds nml Abdomen: positive: Soft Skin: positive: Pallor, Dryness Extremities: positive: No pedal edema Neurologic/Psychiatric: positive: Disoriented to time, Weakness, Depressed mood/affect, Flat affect Palliative Care - POLST Patient has POLST: Yes POLST Status: DNR, Selective Treatment Pain: Pain unchanged, Location (right side with positioning; "pinched"; using oxycodone 5 mg 1 tab at bedtime) Tiredness/Fatigue: Moderate (4-6) Drowsiness/Sedation: Moderate (4-6) Nausea: Mild (1-3), With vomiting (less than 24 hours) Anorexia: Moderate (4-6) Dyspnea: None Depression: Moderate (4-6) Anxiety: Mild (1-3) Feelings of wellbeing/Perceived Quality of Life: Good, Acceptable, No change (feels with latest decline she has currently plateaued) Sleep: Sleeps well Constipation: No Performance Status: Continues with a slow functional decline, does need more assistance getting up and down from the toilet, does need contact assist for any kind of ambulation secondary to fall risk. She is able to self feed, though reports with tremors is often "messy". - Palliative Care Discussion: Patient somewhat distracted as she is awaiting to go to her speech therapy evaluation. She does feel like she has hit a plateau, she does feel like she is at a good place emotionally versus her last visit. She is easily overwhelmed and does recognize her cognitive changes, but tends to be pragmatic as far as what she has control over. Though I am concerned sometimes at times regarding her impulsivity and her lack of insight particularly in her decision-making around ambulation and risk of falls.Does have a POLST in place with DNA R/limited interventions. Her goal is to avoid hospitalization, she very much would like to avoid snf placement, though is concerned about managing her care needs if she were to decline more functionally or cognitively. Impression and Recommendations - Palliative Care Impression: This is a 69-year-old woman who continues to struggle with the sequela of her advanced Parkinson's disease, feels currently is at a plateau, no further changes in her medications. She does have symptoms of autonomic dysfunction, increased choking, and decline in her cognitive and functional status. Palliative care continue provide support regarding symptom burden, anticipatory guidance, and coordination of care. Recommendations/Counseling Done: 1. Autonomic dysfunction. Patient did not follow through in taking blood pressures, she was to take her blood pressure daily and again when she is having episodes. She just now bought a cuff, her caregiver will help her try and log this. If this worsens, she is to notify provider. 2. Dysphagia. Generally patient has not made her appointment yet, it is scheduled for this afternoon. Will await outcome of her appointment. She did have acute episode gastritis/nausea and vomiting and was not able to attend. This is since resolved. 3. Advanced Parkinson's. Patient does continue with both functional and cognitive decline, she has not had any further medication adjustments, she continues with the neurologist. She has developed new symptoms of autonomic dysfunction and dysphagia 4. Depression. 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 Reviewed again my concern about her social isolation, going to the wound clinic had given her "outings". Encouraged to take frequent breaks. 5. Right lower extremity wound. This is now healed, on examination is dried w ith a crusted eschar, no redness or erythema, no tenderness. Time Spent: Minutes with greater than 50% of this done in counseling reviewed again tracking her blood pressures, notify provider if worsens symptoms, patient may need to be on [place].
== END 2019-09-15 13:26 | disposition home or self-care (01) ==
LOC: PC 13:25
PROVIDERS: ATTEND Nurse Practitioner Adult Health
DX: Z51.5 Encounter for palliative care (principal); I95.1 Orthostatic hypotension; G20 Parkinson's disease; F32.9 Major depressive disorder, single episode, unspecified; R44.3 Hallucinations, unspecified; R41.3 Other amnesia; M79.10 Myalgia, unspecified site; Z79.899 Other long term (current) drug therapy; Z79.891 Long term (current) use of opiate analgesic; Z87.2 Personal history of diseases of the skin and subcutaneous tissue; Z66 Do not resuscitate
CPT/HCPCS: 99348

== ENCOUNTER 2019-10-27 13:00 | Outpatient (CLI) | payer MEDICARE, OTHER, MEDICAID ==
--- NOTE | 2019-10-27 17:49 | CONSULTATION NOTE ---
Palliative Care Follow Up - Referral Referring Provider: Dr. Alec Aguilar Time of Visit: 7973-6383 Referral setting: Home Referral Reason: Advanced Parkinsons - Information Sources Records reviewed: Previous records reviewed History/Review of Systems obtained from: Patient, Caregiver ([employer] worker Eva present) Exam limitations: Clinical condition (patient with STM issues) - History of Present Illness Update Brief HPI Update: This is a 69-year-old woman with advanced Parkinson's, who continues to strugg le with severe dyskinesias, she has been quite complicated in the context of an atypical response to most medications. She has been experimenting herself, with titration of different medications, this is related to most often her severity of dyskinesias starts within 20 minutes of taking her meds, though this is complicated in the context she takes her carbidopa/ levodopa, ropinirole, and amantidine, and trihexyphenidyl at the same time. Her days fluctuates, as far as the severity of her dyskinesias and freezing. She is to have falls but has not had anything as far as injury recently. The decrease in frequency has more to do with the fact it is more difficult for her to get from sitting to standing, she is getting quite weak. She does have dizziness, and symptoms of autonomic dysfunction with orthostatic blood pressures. She is having more forgetfulness, she does find this quite frustrating, she has met with the speech therapist as far as improving her technique for guarding against aspiration and tries to implement precautions. On arrival patient was quite calm, was able to participate in conversation. She had just taken her medications, and within about 20 minutes indeed her dyskinesias started were quite severe, as far as writhing in her chair, difficulty focusing, and worsening ability to go from sit to stand. Also observed her choking, with poor cough effort, on her coffee. Caregiver reports this is the worst liquid that they noticed as far as her intermittent choking, otherwise has done quite well with her food and techniques for guarding against aspiration with other fluids. Her wound on her left ankle has healed, just a dry scabbed area, as well as her callus on the bottom of her foot has improved and without further pain. Social History - Living Situation Living arrangement: At home Living Situation: With spouse/s.o. Support System: Patient lives with her Isaiah, he is having increasing memory problems as well. He is quite fearful of her impulsivity and falling. He does get a break with the caregivers which come 8-5 30 and provide oversight. Is also allowed her to get out, she does have a caregiver is willing to take her out with decreasing her isolation. Though this is intermittent depending on the severity of her dyskinesias. Medications/Allergies - Medications Home Medications: Ambulatory Orders Medication Instructions Recorded Confirmed Omeprazole [PriLOSEC] 20 mg PO BID PRN 02/17/17 10/27/19 Oxybutynin Chloride [Ditropan Xl] 15 mg PO DAILY 02/17/17 10/27/19 Ropinirole HCl 3 mg PO .4 MG/3MG/3MG 02/17/17 10/27/19 Trihexyphenidyl HCl 2 mg PO TID 07/24/17 10/27/19 oxyCODONE/ACET 5/325 [Percocet 5 0.5 - 1 g PO Q4HR PRN MDD 4 tabs 07/24/17 10/27/19 mg/325 mg] Amantadine HCl [Amantadine] 100 mg PO TID 10/08/18 10/27/19 Acetaminophen [Tylenol] 650 mg PO Q6H PRN 11/27/18 10/27/19 Carbidopa/Levodopa [Carbidopa-Levo 0.5 tab PO QPM 03/26/19 10/27/19 ER 25-100 Tab] Venlafaxine ER [Effexor ER] 75 mg PO DAILY 03/26/19 10/27/19 Lactobacillus Acidophilus 1 tab PO .Q2 DAYS 09/15/19 10/27/19 [Probiotic Acidophilus] Multivitamin [Multivitamins] 1 tab PO DAILY 09/15/19 10/27/19 - Allergies Allergies/Adverse Reactions: Allergies Allergy/AdvReac Type Severity Reaction Status Date / Time No Known Drug Allergies Allergy Verified 05/25/19 19:41 Review of Systems - Constitutional Constitutional: reports: Fatigue, Weight stable. denies: Fever, Chills - Eyes Eyes: reports: Vision loss - Ears, Nose & Throat Ears, Nose & Throat: reports: Dental decay (doesn't want to "waste money" on dentures to be "buried with them") - Cardiovascular Cardiovascular: reports: Lightheadedness (with standing or bending), Decr. exercise tolerance - Respiratory Respiratory: reports: Cough (with thin liquids/coffee in am). denies: SOB at rest - Gastrointestinal Gastrointestinal: reports: Reflux/heartburn (stopped omeprazole without SE, had not gotten new RX), Good appetite, Other ( hates to cook; lots of fast food). denies: Constipation, Diarrhea (loose improved with changing probiotic to q od), Nausea - Genitourinary Genitourinary: reports: Incontinence (had not reordred oxybutin at base not available increased inc. troubled her so made an appointment with urology) - Musculoskeletal Musculoskeletal: reports: Stiffness, Limited range of motion, Muscle weakness, Assistive devices (has rolling walker with chair uses in home), Other (patient with continued poor truncal support; lists to the right) - Integumentary Integumentary: reports: Dryness, Other (LLE wound healed) - Neurological Neurological: reports: General weakness, Memory problems, Abnormal gait, Slurred speech (voice weak) - Psychiatric Psychiatric: reports: Depression, Anxiety, Hallucinations (cats) - Hematologic/Lymphatic Hematologic/Lymphatic: denies: Recurrent infections - All Other Systems All Other Systems: reports: Reviewed and negative Physical Exam - Vital Signs Temperature: 96.9 C Pulse Rate: 68 (sitting; 86 standing) Respiratory Rate: 18 O2 Saturation: 96 (ra @ rest) Blood Pressure: 122/78 (sitting 105/60 standing) - Physical Exam General Appearance: positive: No acute distress, Alert Eyes Bilateral: positive: Normal inspection ENT: positive: No signs of dehydration, Other (poor dentition; teeth keep falling out) Neck: positive: No JVD, Trachea midline Cardiovascular: positive: Regular rate & rhythm Respiratory: positive: No respiratory distress, Diminished in bases. negative: Wheezes, Rales, Rhonchi Abdomen: positive: Non-tender, Soft, Nml bowel sounds Skin: positive: Pallor, Dryness, Wound (dried patch over area of LLE wound) Extremities: positive: No pedal edema Neurologic/Psychiatric: positive: Oriented x3, Mood/affect nml, Weakness, Slurred/abnml speech (worsening), Flat affect Palliative Care - POLST Patient has POLST: Yes POLST Status: DNR, Selective Treatment Pain: Pain unchanged, Location (right side where hip/ribs meet; scoliosis; uses 1/2-1 tab oxycodone at night and occasionally during day;) Tiredness/Fatigue: Moderate (4-6) Drowsiness/Sedation: None Nausea: None Anorexia: None Dyspnea: None Depression: Mild (1-3) Anxiety: Mild (1-3) Feelings of wellbeing/Perceived Quality of Life: Fair, Acceptable, Worsening Sleep: Sleeps well Constipation: No Performance Status: Patient's functional status continues to decline, she remains impulsive and at high risk for falls. She does have caregivers during the day, that are able to manage and cue her, her does assist, but she does not always ask for help. She is continue to shower twice a week with assistance from her . - Palliative Care Discussion: Patient continues to try and remain "upbeat". She does understand the seriousness of her illness, and is currently still managing at home, the voices concerns how long he is going able to support her in this. Patient does perceive herself is deteriorating, but remains hopeful for quantity and quality of life. She is feeling less isolated, with her caregivers, her is hard of hearing and her voice is soft so makes communication difficult for them. She does have poor memory, and often makes fairly impulsive decisions, including a review of her medications today, she is unable to recall her past decisions and experiences and had to be reminded. Patient does have POLST in place with DNR and selective treatments, she is hoping at end-of-life to be able to be home. Impression and Recommendations - Palliative Care Impression: This is a 69-year-old woman who continues to struggle with the sequela of her advanced Parkinson's disease, continues to have fluctuating dyskinesias impacting her quality of life and functional status, as well as progressive freezing. She does present with symptoms of automatic dysfunction, as well as notable declining cognitive status. Palliative care continue provide support regarding symptom burden, anticipatory guidance, and coordination of care. Recommendations/Counseling Done: 1. Dyskinesias. Patient continues to struggle with fluctuating levels, she is c urrently titrating off her carbidopa levodopa. Reminded her though given the timing it could be other medications as well, her ropinirole has a side effect as well. Given patient's poor memory, I did recommend write down observations so able to review with neurologist. Reminded her in past she retained the carbidopa levodopa because of the increase in freezing episodes. 2. Automatic dysfunction. Patient has not followed through on taking her blood pressures, she does have a cuff. She is symptomatic, though it does not drop significantly today. We will continue to monitor, unclear if she would benefit from midodrine in the future, Recommend again she keep a log, take her blood pressures orthostatically when she is symptomatic. And bring this with her to her neurology appointment in December. 3. Depression. Patient reports she feels it is currently under control, denies any increase in tearfulness, persistent depressive feelings, is following through on cognitive behavioral therapy suggestions of decreasing isolation, engaging in games, she herself has her own "pep talk" that she incorporates into her coping. 4. Advanced care planning. Patient continues with slow progressive cognitive and functional decline, remains at high risk for sequela of a fall and now with worsening dysphagia, aspiration pneumonia. Patient's goals are to remain at home for as long as possible, patient does have POLST in place we will continue to monitor every 2 to 3 months. Time Spent: 45 minutes with greater than 50% of this done in counseling regarding safety and titration of medications, anticipatory guidance, and coordination of care.
== END 2019-10-27 13:01 | disposition home or self-care (01) ==
LOC: PC 13:00
PROVIDERS: ATTEND Nurse Practitioner Adult Health
DX: Z51.5 Encounter for palliative care (principal); G20 Parkinson's disease; R42 Dizziness and giddiness; F32.9 Major depressive disorder, single episode, unspecified; M41.9 Scoliosis, unspecified; Z79.899 Other long term (current) drug therapy; Z79.891 Long term (current) use of opiate analgesic; Z66 Do not resuscitate; Z91.81 History of falling
CPT/HCPCS: 99349

== ENCOUNTER 2019-12-26 13:30 | Outpatient (CLI) | payer MEDICARE, OTHER, MEDICAID ==
--- NOTE | 2019-12-26 16:31 | PROVIDER PROGRESS NOTE ---
HPI/Interval History - HPI/Interval History This is a 69-year-old woman with advanced Parkinson, who continues to struggle with severe dyskinesias, she has had atypical response to most medication. She is currently off her carbidopa levodopa, is continue with her propranolol and amantadine and trihexyphenidyl. She reports the dyskinesias now just occur with stress, about 2 times a day, can be induced easily. She reports she continues with intermittent freezing, her balance and walking is much more difficult, she is tripping in higher risk for further fall and injury. She continues with "choking a lot", she felt to be intervention for did not help but the straws have been helping. Patient called a couple weeks ago, quite distressed, with escalating anxiety. She was unable to really describe what the trigger was, but is easily "freaked out". She has been quite concerned about the coronavirus outbreak, has not having her [employer] workers coming, she is too nervous and does not want to take the unnecessary risk. She has been quite isolated and homebound, her has had less of a break, which has increased the tension between the 2 of them. We had increased her Venlafaxine 75 mg 2 twice daily, she does feel like this has helped. Review of Systems - Constitutional Constitutional: reports: Fatigue, Weight stable. denies: Fever, Chills - Eyes Eyes: reports: Vision loss, Corrective lenses - Ears, Nose & Throat Ears, Nose & Throat: reports: Nasal congestion, Dental decay, Dry mouth - Cardiovascular Cardiovascular: reports: Decr. exercise tolerance - Respiratory Respiratory: reports: Cough (with eating) - Gastrointestinal Gastrointestinal: reports: Good appetite. denies: Constipation, Nausea - Genitourinary Genitourinary: reports: Incontinence (improved with new RX) - Musculoskeletal Musculoskeletal: reports: Muscle pain (right side), Muscle aches, Stiffness, Limited range of motion, Muscle weakness, Assistive devices - Integumentary Integumentary: reports: Dryness - Neurological Neurological: reports: General weakness, Memory problems, Slurred speech - Psychiatric Psychiatric: reports: Depression, Anxiety - Hematologic/Lymphatic Hematologic/Lymphatic: denies: Recurrent infections - All Other Systems All Other Systems: reports: Reviewed and negative Medications/Allergies - Medications Home Medications: Ambulatory Orders Medication Instructions Recorded Confirmed Omeprazole [PriLOSEC] 20 mg PO BID PRN 02/17/17 12/26/19 Ropinirole HCl 3 mg PO .4 MG/3MG/3MG 02/17/17 12/26/19 Trihexyphenidyl HCl 2 mg PO TID 07/24/17 12/26/19 oxyCODONE/ACET 5/325 [Percocet 5 0.5 - 1 g PO Q4HR PRN MDD 4 tabs 07/24/17 12/26/19 mg/325 mg] Amantadine HCl [Amantadine] 100 mg PO TID 10/08/18 10/27/19 Venlafaxine ER [Effexor ER] 75 mg PO BID 03/26/19 12/26/19 Multivitamin [Multivitamins] 1 tab PO DAILY 09/15/19 12/26/19 Trospium Chloride 20 mg PO BID 12/26/19 12/26/19 - Allergies Allergies/Adverse Reactions: Allergies Allergy/AdvReac Type Severity Reaction Status Date / Time No Known Drug Allergies Allergy Verified 05/25/19 19:41 Palliative Care - POLST Patient has POLST: Yes POLST Status: DNR, Selective Treatment Pain: Pain unchanged, Location (Reports right hip/side area as well as lower back. She does use 1/2-1 oxycodone with acetaminophen at nighttime, if it worsen she takes a half during the day. She does get somewhat sedated so uses it sparingly.) Tiredness/Fatigue: Moderate (4-6) Drowsiness/Sedation: None Nausea: None Anorexia: Mild (1-3) Dyspnea: None Depression: Mild (1-3) Anxiety: Moderate (4-6) Feelings of wellbeing/Perceived Quality of Life: Fair, Acceptable Sleep: Sleeps well Constipation: No Performance Status: Functional status continues to decline, she is having more balance problems, she does have frequent falls though none have brought her to the ED. This is quite frustrating and overwhelms her . She is quite impulsive. She does need assistance with bathing, she can do no meal prep or household tasks. With her [employer] workers con, she reports her "building up". - Palliative Care Discussion: Patient does remain quite anxious regarding the coronavirus, she feels like she has that somewhat under control at this point in time. She is very nervous for her daughter who is at risk because of her asthma. They are staying quite isolated, Bill is going out grocery shopping. Patient has made the decision already previously for DNA R/DNI, I did help refocus some of her catastrophizing. Patient feels at this point in time that she is doing okay. She feels like the increase in the venlafaxine has helped, but feels like things are rather surreal right now. Impression and Recommendations - Palliative Care Impression: This is a 69-year-old woman with advanced Parkinson's, he continues to have both functional and cognitive decline. She has had persistent symptoms of autonomic dysfunction, and palliative care is continue to provide support regarding symptom burden, anticipatory guidance, and coordination of care. Recommendations/Counseling Done: 1. Depression. Patient feels this is currently under control, had increased her venlafaxine 75 mg twice daily with good results, has decreased some of her anxiety/panic attacks. Unfortunately had been making progress with decreasing her isolation and some behavioral therapy interventions, her caregivers were engaging her in more activities that brought her kellie. She is now isolated again, her does have increased caregiver fatigue, she is hoping to have things resolve soon with the coronavirus limitations. She is quite anxious about her risk and risk for her family. 2. Autonomic dysfunction. Patient has not followed through on taking her blood pressures, her [employer] worker had been helping her. She currently remains symptomatic with any kind of orthostatic drop, there had been discussion regarding initiating some Midorine, but will defer to neurology, which is still currently pending. Counseling provided regarding need the data to be able to help her with her symptoms, encouraged her to take blood pressure and keep a log going. 3. Dyskinesias. Patient continues to struggle with fluctuating levels, she does perceive they are produced with anxiety. She is trying to pay attention to the triggers, though find them hard to control as they are anxiety produced. 4. Advanced Parkinson's. Patient does present with ongoing progressive symptoms, she does seem aware of this. She continues to hope for the best, though remains at high risk for hospitalization and sequela from a fall. 5. Advanced care planning. Patient continues with slow progressive and cognitive decline, she remains at home, this is her goal. Patient does have a POLST in place with DNA R and selective treatments. We will continue to monitor every 4 to 6 weeks. Time Spent: 46714 CPT CODE Telehealth Visit - TeleMedicine Visit Referring Provider: Dr. Alec Aguilar Visit Type:: TeleHealth Phone Call Patient agrees and consents to this telehealth visit type: Yes Time spent:: 35 minutes Video type:: Telephone Location of provider:: Office Location of patient:: Home Provider Statement: I spent 100% or the TeleHealth Phone Call with the patient with greater than 50% spent counseling the patient and coordination of care.
== END 2019-12-26 13:31 | disposition home or self-care (01) ==
LOC: PC 13:30
PROVIDERS: ATTEND Nurse Practitioner Adult Health
DX: Z51.5 Encounter for palliative care (principal); G20 Parkinson's disease; R29.6 Repeated falls; F41.9 Anxiety disorder, unspecified; F32.9 Major depressive disorder, single episode, unspecified; R53.83 Other fatigue; Z79.899 Other long term (current) drug therapy; Z79.891 Long term (current) use of opiate analgesic; Z66 Do not resuscitate

== ENCOUNTER 2020-02-29 13:30 | Outpatient (CLI) | payer MEDICARE, OTHER, MEDICAID ==
--- NOTE | 2020-02-29 20:05 | CONSULTATION NOTE ---
Palliative Care Follow Up - Referral Referring Provider: Dr. Alec Aguilar Time of Visit: 9009-1277 Referral setting: Home Referral Reason: Advanced Parkinsons/Anxiety - Information Sources Records reviewed: Previous records reviewed History/Review of Systems obtained from: Patient Exam limitations: Clinical condition (some STM issues) - History of Present Illness Update Brief HPI Update: This is a 69-year-old woman with advanced Parkinson's, continues to struggle with fluctuating dyskinesias, she has had a typical response to most medications. She currently remains off her carbidopa/levodopa, but continues with her amantadine, trihexyphenidyl, and ropinirole. She reports the dyskinesias are less in severity, and are often triggered by stress, but are easily induced. She does continue with intermittent freezing, but feels this has more to do with her helping her, as he continues to hold her on one side and she feels like she is being pushed over. She has noted increasing difficulty with swallowing and choking. She has been able to clear her secretions. The other changes she is starting to have some drooling, which she finds quite distressing. On exam I do not know she is anxious, but she is quite pronounced in her dyskinesias, she continues to lean to the right, and continues with intermittent pain. She does not get up by herself, mostly because she can no longer get from sitting to standing, but continues with frequent falls. She does have underlying anxiety and depression, but feels currently managed well on her venlafaxine 75 mg twice a day. Her biggest stressor is her 's continuing memory decline, which is evident even in today's visit. Social History - Living Situation Living arrangement: At home Living Situation: With spouse/s.o. Support System: Patient lives with her Isaiah, they have a daughter and his son but are not providing support. She does have [employer] workers, that comes several hours a day, give belly break as well as decrease isolation for Sandrita. His memory is getting worse, he has very poor short-term memory recall, he did try to answer the phone on the remote when I was there. He does cover. Medications/Allergies - Medications Home Medications: Ambulatory Orders Medication Instructions Recorded Confirmed Omeprazole [PriLOSEC] 20 mg PO BID PRN 02/17/17 02/29/20 Ropinirole HCl 3 mg PO .4 MG/3MG/3MG 02/17/17 02/29/20 Trihexyphenidyl HCl 2 mg PO TID 07/24/17 02/29/20 oxyCODONE/ACET 5/325 [Percocet 5 0.5 - 1 g PO Q4HR PRN MDD 4 tabs 07/24/17 02/29/20 mg/325 mg] Amantadine HCl [Amantadine] 100 mg PO TID 10/08/18 02/29/20 Venlafaxine ER [Effexor ER] 75 mg PO BID 03/26/19 02/29/20 Multivitamin [Multivitamins] 1 tab PO DAILY 09/15/19 02/29/20 Oxybutynin Chloride [Ditropan Xl] 10 mg PO DAILY 02/29/20 02/29/20 - Allergies Allergies/Adverse Reactions: Allergies Allergy/AdvReac Type Severity Reaction Status Date / Time No Known Drug Allergies Allergy Verified 05/25/19 19:41 Review of Systems - Constitutional Constitutional: reports: Fatigue, Weakness, Weight stable (150). denies: Fever, Chills - Eyes Eyes: reports: Vision loss, Corrective lenses - Ears, Nose & Throat Ears, Nose & Throat: reports: Dental decay (has lost more teeth; still has not gone to dentist) - Cardiovascular Cardiovascular: denies: Chest pain, Edema - Respiratory Respiratory: denies: Cough, SOB at rest - Gastrointestinal Gastrointestinal: reports: Constipation (does not describe constipation as such; just difficulty with soft stool), Good appetite, Other (more difficulty with choking). denies: Abdominal pain, Nausea, Reflux/heartburn - Genitourinary Genitourinary: reports: Incontinence (fluctuates; did not find new med helpful; back on oxybutin; planning to f/u with urologist. Though some days frequent incontince and others none) - Musculoskeletal Musculoskeletal: reports: Back pain, Muscle aches, Stiffness, Limited range of motion, Muscle weakness, Joint pain (left shoulder pain; attributes to fall), Assistive devices (uses rolling walker when out or wheelchair) - Integumentary Integumentary: reports: Dryness, Other (healed right leg wound; scar residual only) - Neurological Neurological: reports: General weakness, Dizziness, Memory problems, Abnormal gait, Incoordination, Slurred speech - Psychiatric Psychiatric: reports: Depression, Anxiety, Aggitation (at times) - Hematologic/Lymphatic Hematologic/Lymphatic: denies: Recurrent infections - All Other Systems All Other Systems: reports: Reviewed and negative Physical Exam - Vital Signs Temperature: 97.0 C Pulse Rate: 74 Respiratory Rate: 18 O2 Saturation: 99 (ra @ rest) Blood Pressure: 132/80 - Physical Exam General Appearance: positive: No acute distress, Alert, Anxious Eyes Bilateral: positive: Other (eyes don't focus well together; close on or another to focus) ENT: positive: Other (more teeth missing; denies abcesses/pain) Neck: positive: Trachea midline. negative: Lymphadenopathy (R), Lymphadenopathy (L) Cardiovascular: positive: Regular rate & rhythm Respiratory: positive: No respiratory distress, Breath sounds nml, Diminished in bases Abdomen: positive: Non-tender, Soft, Nml bowel sounds Skin: positive: Pallor, Dryness Extremities: positive: No pedal edema Neurologic/Psychiatric: positive: Oriented x3, Mood/affect nml, Weakness, Flat affect Palliative Care - POLST Patient has POLST: Yes POLST Status: DNR, Selective Treatment Pain: Pain unchanged, Location (Patient continues with right-sided pain, worsening with movement, no pain at rest. Uses intermittent oxycodone, she dislikes using it during the day because get sleepy.) Tiredness/Fatigue: Moderate (4-6) Drowsiness/Sedation: Mild (1-3) Nausea: None Anorexia: None Dyspnea: None Depression: Mild (1-3) Anxiety: Moderate (4-6) Feelings of wellbeing/Perceived Quality of Life: Fair, Acceptable, Worsening Sleep: Sleeps well Constipation: Yes, Intermittent constipation Performance Status: Patient needing more assistance from sitting to standing, gait remains unsteady with intermittent freezing. Patient jake at high fall risk, dyskinesias come and go. Patient is reporting increased choking, difficulty particularly with thin liquids. We did discuss speech therapy again, she will consider. She does get bathed by her , [employer] workers help with dressing, laundry and household tasks as well as oversight while gets respite. - Palliative Care Discussion: Patient remains quite defiant regarding her illness, does see her decline, particularly with choking. We did discuss in the context of concern for aspiration pneumonia. Patient does have frequent falls, she is quite adamant she does not want to go illness she has been "knocked out her bleeding". She finds it unhelpful to go to the ED and quite frustrating. She does feel like things are progressing, she is planning to follow-up with neurology though does not expect any interventions. She does understand the seriousness of her illness, but not always the insight regarding risks and benefits particularly as she is quite impulsive. She does share quite a bit of his frustrations regarding her , she is quite anxious if he is no longer able to meet her care needs she will need to be placed. She would like to stay at home for as long as possible and even have a at home. Has been does present with ongoing memory issues, and caregiver fatigue. Patient has had no ED visits or hospitalizations since last visit. Impression and Recommendations - Palliative Care Impression: This is a 70-year-old woman with advanced Parkinson's, continues have both functional and cognitive decline. She does present with persistent symptoms of dyskinesias, autonomic dysfunction, and now worsening dysphagia. Palliative care to continue provide support regarding symptom burden, anticipatory guidance, and coordination of care Recommendations/Counseling Done: 1. Depression. Patient feels currently under control, is tolerating increase venlafaxine 75 mg twice a day with good results with decreased anxiety/panic attacks. She has been able to get out and decrease her isolation, she is gotten over her severe anxiety regarding COVID-19 but is following precautions. She remains quite anxious regarding her , and pending decline. 2. Autonomic dysfunction. Reports less dizziness, continues with intermittent falls. Had not followed through taking her blood pressures. At this point in time we will continue to monitor, had conversation about initiating Midrin in the future, she still does not follow through on seeing her neurologist. Do not believe she is probably capable for logging this for evaluation. 3. Dyskinesias. Patient continues to struggle with fluctuating levels, though does perceive it is less and is triggered by stressors. She is trying to avoid them, as she does recognize a her anxiety produced. She is still remains at high fall risk. She has not removed the glass table has been reinstructed yet a gain. 4. Acute on chronic pain. Recommended using acetaminophen 1000 mg every 4 hours for pain during the day, versus oxycodone as she dislikes sedation. She does find it helps at bedtime, and keeps her comfortable and not awakening in pain. She takes 1 to 2 tablets 5. Dysphagia. Patient remains at high risk for aspiration, she is having some increased drooling. She is still able to feed herself but this is with difficulty. Counseling provided regarding aspiration precautions she is considering revisiting speech therapy, but would like her to go as he does not seem to appreciate the severity of the symptom. 6. Advanced Parkinson's. Patient does present with ongoing progressive symptoms, she remains pragmatic and hoping for the best, though she remains at high risk for hospitalization and sequela from a fall. Now added risk of aspiration pneumonia. 7. Advanced care planning. Patient continues with slow progressive functional and cognitive decline, she remains at home this is her goal. Patient does have a POLST with DNA R and selective treatment in place. Unfortunately caregiver presents with caregiver fatigue, he will only be able to manage her as long as she is able to participate some in her care. He does feel at some point in the near future may need to consider placement. Time Spent: 45 minutes with greater than 50% of this time in counseling regarding symptom management, anticipatory guidance, counseling regarding disease trajectory and coordination of care.
== END 2020-02-29 13:31 | disposition home or self-care (01) ==
LOC: PC 13:30
PROVIDERS: ATTEND Nurse Practitioner Adult Health
DX: Z51.5 Encounter for palliative care (principal); F32.9 Major depressive disorder, single episode, unspecified; F41.9 Anxiety disorder, unspecified; R42 Dizziness and giddiness; G24.9 Dystonia, unspecified; G89.29 Other chronic pain; G20 Parkinson's disease; K59.00 Constipation, unspecified; R32 Unspecified urinary incontinence; R53.83 Other fatigue; Z79.899 Other long term (current) drug therapy; Z91.81 History of falling; Z66 Do not resuscitate
CPT/HCPCS: 99349

== ENCOUNTER 2020-06-01 15:22 | Outpatient (CLI) | payer MEDICARE, OTHER, MEDICAID ==
--- NOTE | 2020-06-01 16:36 | CONSULTATION NOTE ---
Palliative Care Follow Up - Referral Referring Provider: Dr. Alec Aguilar Time of Visit: [id number] Referral setting: Home Referral Reason: Advanced Parkinsons/Depression - Information Sources Records reviewed: Previous records reviewed History/Review of Systems obtained from: Patient, Family (f/up briefly with Jaimie) Exam limitations: Clinical condition (patient with increased STM issues) - History of Present Illness Update Brief HPI Update: This is a 70-year-old woman with advanced Parkinson's, continuing to struggle with fluctuating dyskinesias, and both functional and cognitive decline. She is currently off her carbidopa levodopa, but continues on her amantadine trihexyphenidyl, and ropinirole. She had a reprieve for a few months of her dyskinesias, but have reoccurred, they are often triggered by stress and easily induced. She reports she has noted increased trouble with freezing, less able to ambulate longer distance, and quite distressed with increased problems with urinary incontinence. She has seen the urologist, they are starting her on a new medication, she has stopped her oxybutynin. She reports she can be continent for several days, and then incontinent for several times during the day. Patient does present with weight gain, she is up to 178. She reports she "quit caring" and eats what she wants. She is spending most of her time in the wheelchair, she does have intermittent dysphagia, and is quite distressed by her increased drooling. She continues to have falls, she had to last week, but have decreased in frequency overall in the context that she is not getting up as much and has difficulty getting up from sitting. She continues with underlying anxiety and depression, she is quite tearful when talking about her biggest stressor which is her 's continuing memory decline. She continues with low-grade back pain on the right, she does lean to the right and has poor upper trunk support and strength. Social History - Living Situation Living arrangement: At home Living Situation: With spouse/s.o. Support System: Patient lives at home with her spouse, they have a daughter and a son that are not participating in care. She does have [employer] workers, to come several hours a day. This gives jaimie a break as well as decreases isolation for Sandrita. His memory is continue to get worse, his very short-term poor memory recall, patient is quite fearful about how they are going to manage long-term with her decline in his as well. Medications/Allergies - Medications Home Medications: Ambulatory Orders Medication Instructions Recorded Confirmed Omeprazole [PriLOSEC] 20 mg PO BID PRN 02/17/17 06/01/20 Ropinirole HCl 3 mg PO .4 MG/3MG/3MG 02/17/17 06/01/20 Trihexyphenidyl HCl 2 mg PO TID 07/24/17 06/01/20 oxyCODONE/ACET 5/325 [Percocet 5 0.5 - 1 g PO Q4HR PRN MDD 4 tabs 07/24/17 06/01/20 mg/325 mg] Amantadine HCl [Amantadine] 100 mg PO TID 10/08/18 06/01/20 Venlafaxine ER [Effexor ER] 75 mg PO BID 03/26/19 06/01/20 Multivitamin [Multivitamins] 1 tab PO DAILY 09/15/19 06/01/20 - Allergies Allergies/Adverse Reactions: Allergies Allergy/AdvReac Type Severity Reaction Status Date / Time No Known Drug Allergies Allergy Verified 05/25/19 19:41 Review of Systems - Constitutional Constitutional: reports: Fatigue, Weight gain (28 pounds over 3 months). denies: Fever, Chills - Eyes Eyes: reports: Vision loss, Corrective lenses - Ears, Nose & Throat Ears, Nose & Throat: reports: Dental decay (worsening; still has not gone to dentist) - Cardiovascular Cardiovascular: reports: Decr. exercise tolerance - Respiratory Respiratory: denies: SOB at rest - Gastrointestinal Gastrointestinal: reports: Good appetite. denies: Constipation (goes 2 x a week; soft "gooey" makes it difficult to manage), Nausea - Genitourinary Genitourinary: reports: Incontinence - Musculoskeletal Musculoskeletal: reports: Back pain, Stiffness, Limited range of motion, Muscle weakness, Transfer issues (uses mostly wheelchair for mobility) - Integumentary Integumentary: reports: Dryness, Other (left elbow injury; healing) - Neurological Neurological: reports: General weakness, Memory problems (worsening), Slurred speech (more difficult to understand), Other (increased drooling) - Psychiatric Psychiatric: reports: Depression, Anxiety - Hematologic/Lymphatic Hematologic/Lymphatic: denies: Recurrent infections - All Other Systems All Other Systems: reports: Reviewed and negative Physical Exam - Vital Signs Temperature: 97.2 C Pulse Rate: 68 Respiratory Rate: 18 O2 Saturation: 99 (ra @ rest) Blood Pressure: 122/72 - Physical Exam General Appearance: positive: No acute distress, Alert Eyes Bilateral: positive: Normal inspection ENT: positive: Other (worsening dentition with missing teeth) Neck: positive: Trachea midline Cardiovascular: positive: Regular rate & rhythm Respiratory: positive: No respiratory distress, Diminished in bases Abdomen: positive: Non-tender, Soft Skin: positive: Pallor, Dryness, Wound (left elbow without s/s infectoin) Neurologic/Psychiatric: positive: Oriented x3, Weakness, Slurred/abnml speech, Depressed mood/affect (tearful), Flat affect Palliative Care - POLST Patient has POLST: Yes POLST Status: DNR, Selective Treatment Pain: Pain unchanged, Location (right side/back; relieved with apap during day; oxycodone at bedtime) Tiredness/Fatigue: Moderate (4-6) Drowsiness/Sedation: Mild (1-3) Nausea: None Anorexia: None Dyspnea: None Depression: Moderate (4-6) Anxiety: Moderate (4-6) Feelings of wellbeing/Perceived Quality of Life: Fair, Worsening Sleep: Sleeps well Constipation: Yes, Unmanaged (patient fluctuates with wanting to do bowel program or not), Intermittent constipation Performance Status: Patient is having decline in functional status, is now only able to ambulate to the Room from the living room couch, she is unable to walk back. This has a lot to do not only with deconditioning but also her increased and freezing. She is needing more assistance with most things, she is still feeding herself despite her tremors. She does need assistance with bathing. - Palliative Care Discussion: Patient does admit to fluctuating depressive symptoms, this has much to do with her stressors particularly around her , and his worsening dementia. She recognizes and herself she is declining, and finds most distressful with incontinence and drooling, has seizures are somewhat humiliating to her. She does worry about the future, and his ongoing ability to keep her at home. When checked in with him, he he reports increased irritability on her part, and worsening cognitive issues. At this point he feels like they are managing with [employer]. Impression and Recommendations - Palliative Care Impression: This is a 70-year-old woman with advanced Parkinson's, she continues with both functional and cognitive slow decline. She does present with persistent symptoms of fluctuating dyskinesias, autonomic dysfunction, incontinence, and drooling. Patient with complex social situation, and multiple stressors. Palliative care to continue provide support regarding symptom burden, anticipatory guidance, and coordination of care. Recommendations/Counseling Done: 1. Advanced Parkinson's. Patient continues with awaiting levels of dyskinesias, she does perceive these are triggered by stressors, and most recently have exacerbated again. She still remains at a high fall risk, though with functional decline and is more wheelchair-bound. She did make an appointment in follow-up with the neurologist, we did discuss in the context of her drooling, she is curious about Botox. Discuss it would be appropriate referral from neurology, encouraged to ask about it. 2. Depression. Patient feels currently under control, is tolerating increase in venlafaxine 75 mg twice a day with good results with decreased anxiety/panic attacks, though she does have weight gain. She is now going out shopping, has gotten over her severe anxiety regarding COVID-19, but is following precautions. She does remain quite anxious about her 's situation as well as her pending decline. Psychosocial support and counseling provided. 3. Autonomic dysfunction. Patient has had less falls, has not followed through on taking her blood pressures. It does appear not to be as significant as previously, patient not capable of following through home logging blood pressures for evaluation. 4. Dysphagia. Patient jake at high risk for aspiration, is having increased drooling, is still able to feed herself but with difficulty. Patient has been educated on aspiration precautions, at this point in time does not want to follow-up with speech therapy. 5. Constipation. Did recommend patient add more fiber to her diet, she does eat a salad nightly, does not like to take any further supplements. Instructed to add oatmeal in the morning, to see if firms up and helps with her bowel movements. 6. Advanced care planning. Patient continues with slow progressive functional and cognitive decline, her goal is to remain at home. Patient does have POLST with DNA R and selective treatment in place. Has been feels they are currently managing, they have found a good fit as far as [employer] worker and support for decreasing isolation. Time Spent: 45 minutes with greater than 50% of this done in counseling regarding safety, anticipatory guidance regarding disease process, and coordination of care with current lola worker /care plan.
== END 2020-06-01 15:23 | disposition home or self-care (01) ==
LOC: PC 15:22
PROVIDERS: ATTEND Nurse Practitioner Adult Health
DX: Z51.5 Encounter for palliative care (principal); G20 Parkinson's disease; F41.9 Anxiety disorder, unspecified; F32.9 Major depressive disorder, single episode, unspecified; K59.00 Constipation, unspecified; Z66 Do not resuscitate
CPT/HCPCS: 99349

== ENCOUNTER 2020-06-26 17:42 | Outpatient (CLI) | payer MEDICARE, OTHER, MEDICAID | END 2020-06-26 17:43 | disposition home or self-care (01) | LOC: COV 17:42 | PROVIDERS: ATTEND Family Medicine | DX: R05 Cough (principal); M79.10 Myalgia, unspecified site; R53.83 Other fatigue; J02.9 Acute pharyngitis, unspecified; R11.0 Nausea; Z20.828 Contact with and (suspected) exposure to other viral communicable diseases ==

== ENCOUNTER 2020-10-01 12:45 | Outpatient (CLI) | payer MEDICARE, OTHER, MEDICAID ==
--- NOTE | 2020-10-01 17:53 | CONSULTATION NOTE ---
Palliative Care Follow Up - Referral Referring Provider: Dr. Alec Aguilar Time of Visit: 12:40-1330 Referral setting: Home Referral Reason: Advanced Parkinsons/GERD - Information Sources Records reviewed: Previous records reviewed History/Review of Systems obtained from: Patient, Family ( present end of visit) Exam limitations: Clinical condition (patient with mild STM deficits) - History of Present Illness Update Brief HPI Update: This is a 70-year-old woman with advanced Parkinson's, continue to struggle with fluctuating dyskinesias, and both functional and cognitive decline. She is currently off her carbidopa levodopa, but continues with her amantadine, trihexyphenidyl, and ropinirole. She does still have some severe dyskinesias these are often triggered by stress and easily induced. She is mostly wheelchair-bound, because of increased trouble with freezing, and balance. She has recently seen urologist, and was put on oxybutynin 15 mg 24-hour extended release, with improvement of her incontinence. She has had worse trouble with choking on food and fluids, though has not aspirated up to this point. She denies any weight loss, continues with right rib pain and discomfort, appears to have worsening truncal stability, and reports sleeping more. Past Medical History: Anxiety, GERD, history of hysterectomy, cholecystectomy, and history of a broken pelvis from a fall Social History - Living Situation Living arrangement: At home Living Situation: With spouse/s.o. Support System: Patient lives at home with her spouse Isaiah, they have a son and a daughter who are not currently participating in care. Though she does report her daughter has been coming around more often, and takes her out for rides. She does have [employer] workers, that come in several days a week Thursday through Thursday, for a few hours. This gives her Isaiah a break, as well as decrease his isolation for Sandrita. She is quite concerned as his memory continues to get worse, and is quite fearful about how they are going to manage long-term with her declining as well as his Medications/Allergies - Medications Home Medications: Ambulatory Orders Medication Instructions Recorded Confirmed Omeprazole [PriLOSEC] 20 mg PO BID 02/17/17 10/02/20 Ropinirole HCl 3 mg PO .4 MG/3MG/3MG 02/17/17 10/02/20 Trihexyphenidyl HCl 2 mg PO TID 07/24/17 10/02/20 oxyCODONE/ACET 5/325 [Percocet 5 0.5 - 1 g PO Q4HR PRN MDD 4 tabs 07/24/17 10/02/20 mg/325 mg] Amantadine HCl [Amantadine] 100 mg PO TID 10/08/18 10/02/20 Venlafaxine ER [Effexor ER] 75 mg PO BID 03/26/19 10/02/20 Multivitamin [Multivitamins] 1 tab PO DAILY 09/15/19 10/02/20 Oxybutynin Chloride [Ditropan Xl] 15 mg PO DAILY 10/02/20 10/02/20 bisacodyL [Dulcolax] 5 mg PO DAILY 10/02/20 10/02/20 - Allergies Allergies/Adverse Reactions: Allergies Allergy/AdvReac Type Severity Reaction Status Date / Time No Known Drug Allergies Allergy Verified 05/25/19 19:41 Review of Systems - Constitutional Constitutional: reports: Fatigue, Weakness, Weight gain. denies: Fever, Chills - Eyes Eyes: reports: Vision loss, Dipolpia - Ears, Nose & Throat Ears, Nose & Throat: reports: Dental decay, Dry mouth - Cardiovascular Cardiovascular: reports: Decr. exercise tolerance. denies: Chest pain, Edema - Respiratory Respiratory: reports: Cough (with eating). denies: SOB at rest - Gastrointestinal Gastrointestinal: reports: Reflux/heartburn (has returned and not taking omeprazole; stopped because it was better), Good appetite. denies: Constipation (currently controlled with ducolaz) - Genitourinary Genitourinary: reports: Incontinence (less with new medication) - Musculoskeletal Musculoskeletal: reports: Muscle aches, Stiffness, Limited range of motion, Muscle weakness, Transfer issues (using rolling walker to get around house) - Integumentary Integumentary: reports: Dryness - Neurological Neurological: reports: General weakness, Numbness, Memory problems, Other (fluctuating dyskinethiseas) - Psychiatric Psychiatric: reports: Anxiety (reports currently controlled; no recent panic attacks) - All Other Systems All Other Systems: reports: Other (poor STME and recall) Physical Exam - Vital Signs Temperature: 97.7 C Pulse Rate: 81 Respiratory Rate: 18 O2 Saturation: 98 (ra @ rest) Blood Pressure: 122/70 - Physical Exam General Appearance: positive: No acute distress, Alert Eyes Bilateral: positive: Normal inspection ENT: positive: Other (worsening dentition with missing teeth; has appointment with dentist tomorrow) Neck: positive: Trachea midline Cardiovascular: positive: Regular rate & rhythm Respiratory: positive: No respiratory distress, Diminished in bases Abdomen: positive: Non-tender, Soft Skin: positive: Pallor, Dryness Extremities: positive: No pedal edema, Other (poor truncal support; leans to right) Neurologic/Psychiatric: positive: Oriented x3, Weakness, Slurred/abnml speech, Depressed mood/affect (tearful), Flat affect Palliative Care - POLST Patient has POLST: Yes POLST Status: DNR, Selective Treatment Pain: Pain unchanged, Location (right rib area; worse at night), Comment (takes 1 oxycodone at bedtime with relief) Tiredness/Fatigue: Moderate (4-6) Drowsiness/Sedation: Moderate (4-6) (reports sleeping more during the day) Nausea: None Anorexia: None Dyspnea: None Depression: Mild (1-3) Anxiety: Moderate (4-6) Feelings of wellbeing/Perceived Quality of Life: Good, Acceptable, Worsening Sleep: Sleeps well Constipation: Yes, Opoid induced, Managed Performance Status: Patient is needing more assistance with ambulating few steps to rolling walker, is using that for transferring to couch. She is much more sedentary. They do the wheelchair for when they take her out. She does need assistance with bathing, patient currently still able to feed herself, but it is quite "messy". She does starting to choke more, she has seen speech therapy in the past, she does know aspiration precautions as well as diet modifications of both of which she only partially follows - Palliative Care Discussion: Patient's declined to take her to her neurology appointment, though we did discuss could probably do telehealth in this time of the pandemic. Reports she is declining, she is mostly wheelchair-bound, she is "choking on everything", but still feels her current quality of life is acceptable. She has not reestablished with a new provider, reminded needed to do this as soon as possible. Patient does have a POLST in place with DN AR and selective treatments, patient with consider and accept hospitalization for reversible conditions, she does not want to have her life extended if she were to need to go to skilled nursing. Impression and Recommendations - Palliative Care Impression: This is a 70-year-old woman with advanced Parkinson's, she continues with both functional and cognitive decline. She does present with persistent symptoms of fluctuating dyskinesias, autonomic dysfunction, intermittent incontinence, drooling, his voice is weaker, and is having more discomfort from her spasms. Pa tient with a complex social situation and multiple stressors. Palliative care to continue provide support regarding symptom burden, anticipatory guidance, and coordination of care Recommendations/Counseling Done: 1. Advanced Parkinson's. Patient continues with fluctuating levels of dyskinesias, her perception is these are triggered by stressors, they do cycle some. She still remains a high fall risk, though is mostly wheelchair-bound at this point in time. She has not followed up with neurology, encouraged to reset appointment, could ask for telehealth secondary to transportation barrier. 2. Dysphagia. Patient jake at high risk for aspiration, has had increased drooling, increased trouble feeding herself. She has been educated with aspiration precautions, reports she is "choking all the time". Today her lungs are clear. She has seen speech therapist in the past, declines a visit for updating food textures and program. 3. Constipation. Patient continues to struggle with this, reports she is currently using Dulcolax daily, had increased constipation most likely attributed to the oxybutynin. She is going daily, they are firm which makes her happy as she finds it quite distressing as far as the hygiene issue for soft stool. 4. Anxiety. Patient reports her anxiety attacks are currently under control, most of her stressors have to do with her and her declining health. She still feels like her current quality of life is good, she feels like her current dosing of her venlafaxine is at a good dose. 5. GERD. Patient reports increased symptoms and distress related to this, had stopped her omeprazole. She is very pill adverse. Encouraged to restart at 20 mg twice a day for 2 weeks, then decrease to daily. Patient does have early severe symptoms and would benefit from treatment.Called in Rx, encouraged if unable to be covered by insurance to pay [id number] and initiate MELECIO. 6. Advanced care planning. Patient continues with slow progressive functional and cognitive decline, her goal is to remain at home. I am worried though with her 's worsening health, if they are going to be able to manage this long-term. Patient does have a POLST with DN AR and selective treatments in place. She has had more contact with her daughter, very much enjoyed the holidays, does recognize that her disease is progressing but still feels her cu rrent quality of life is acceptable. Time Spent: 50 minutes with greater than 50% of this time in counseling regarding management of disease, anticipatory guidance, coordination of care. Recommended establish with new PCP, and follow-up neurology appointment.
== END 2020-10-01 12:46 | disposition home or self-care (01) ==
LOC: PC 12:45
PROVIDERS: ATTEND Nurse Practitioner Adult Health
DX: Z51.5 Encounter for palliative care (principal); G20 Parkinson's disease; R13.10 Dysphagia, unspecified; K59.00 Constipation, unspecified; F41.9 Anxiety disorder, unspecified; K21.9 Gastro-esophageal reflux disease without esophagitis; Z66 Do not resuscitate
CPT/HCPCS: 99349

== ENCOUNTER 2020-11-21 14:41 | Outpatient (CLI) | payer MEDICARE, OTHER, MEDICAID ==
--- NOTE | 2020-11-21 17:41 | CONSULTATION NOTE ---
Palliative Care Follow Up - Referral Referring Provider: Kimberly Eden PA-C Time of Visit: [id number] Referral setting: Home Referral Reason: Advanced Parkinsons - Information Sources Records reviewed: Previous records reviewed History/Review of Systems obtained from: Patient Exam limitations: Clinical condition (patient with STM issues) - History of Present Illness Update Brief HPI Update: This is a 70-year-old woman with advanced Parkinson's, continues struggling with fluctuating dyskinesias though she feels these are less intense, but do exacerbate with anxiety. She has had actually continued functional decline, is mostly chair bound, doing transfers and few steps only, she had a recent fall but with no acute injury. She reports her balance is worse, and can stand and pivot, but is needing more assistance overall. She reports her cognitive decline continues to fluctuate, with some short-term memory issues, but is very distressed as her 's dementia is worsening, she is needing to provide more oversight, will be doing the finances now. Patient reports her oxybutynin time-released has improved her incontinence, she is recently seen Dr. Armas with her understanding she is going to have "procedure" so she does not have further fecal incontinence. Though in review of the note it looks like a colonoscopy is most likely planned. She has had issues with bowels on and off and dislikes using MiraLAX or Senokot because it makes her bowels too soft. She continues with anxiety and depression, is quite tearful when talking about her biggest stressor which is her 's continuing decline. Social History - Living Situation Living arrangement: At home Living Situation: With spouse/s.o. Support System: She lives with her spouse Isaiah, who is having declining health issues as well. Her daughter is becoming more engaged in tracking the both of them, encouraged her to continue to keep her abreast of her concerns and fears. She does have [employer] workers, that do provide respite several hours a day through the week. Medications/Allergies - Medications Home Medications: Ambulatory Orders Medication Instructions Recorded Confirmed Omeprazole [PriLOSEC] 20 mg PO BID 02/17/17 11/21/20 Ropinirole HCl 3 mg PO .4 MG/3MG/3MG 02/17/17 11/21/20 Trihexyphenidyl HCl 2 mg PO TID 07/24/17 11/21/20 oxyCODONE/ACET 5/325 [Percocet 5 0.5 - 1 g PO Q4HR PRN MDD 4 tabs 07/24/17 11/21/20 mg/325 mg] Amantadine HCl [Amantadine] 100 mg PO TID 10/08/18 10/02/20 Venlafaxine ER [Effexor ER] 75 mg PO BID 03/26/19 11/21/20 Multivitamin [Multivitamins] 1 tab PO DAILY 09/15/19 11/21/20 Oxybutynin Chloride [Ditropan Xl] 15 mg PO DAILY MDD DR 10/02/20 11/21/20 bisacodyL [Dulcolax] 5 mg PO DAILY 10/02/20 11/21/20 - Allergies Allergies/Adverse Reactions: Allergies Allergy/AdvReac Type Severity Reaction Status Date / Time No Known Drug Allergies Allergy Verified 05/25/19 19:41 Review of Systems - Constitutional Constitutional: reports: Fatigue, Weakness, Weight gain. denies: Fever, Chills - Eyes Eyes: reports: Vision loss, Dipolpia - Ears, Nose & Throat Ears, Nose & Throat: reports: Dental decay, Dry mouth - Cardiovascular Cardiovascular: reports: Decr. exercise tolerance. denies: Chest pain, Edema - Respiratory Respiratory: reports: Cough (with eating). denies: SOB at rest - Gastrointestinal Gastrointestinal: reports: Reflux/heartburn (has returned and not taking omeprazole; stopped because it was better), Good appetite. denies: Constipation (currently controlled with ducolaz) - Genitourinary Genitourinary: reports: Incontinence (less with new medication) - Musculoskeletal Musculoskeletal: reports: Muscle aches, Stiffness, Limited range of motion, Muscle weakness, Transfer issues (pivots to rolling walker; being pushed around not ambulating as much) - Integumentary Integumentary: reports: Dryness - Neurological Neurological: reports: General weakness, Numbness, Memory problems, Slurred speech (voice softer), Other (fluctuating dyskinethiseas) - Psychiatric Psychiatric: reports: Anxiety (reports currently controlled; no recent panic attacks) - All Other Systems All Other Systems: reports: Other (poor STME and recall) Physical Exam - Vital Signs Temperature: 97.7 C Pulse Rate: 72 Respiratory Rate: 16 O2 Saturation: 100 Blood Pressure: 128/70 - Physical Exam General Appearance: positive: No acute distress, Alert Eyes Bilateral: positive: Normal inspection ENT: positive: Other (worsening dentition with missing teeth; had cancelled dentist appointment) Neck: positive: Trachea midline Cardiovascular: positive: Regular rate & rhythm Respiratory: positive: No respiratory distress, Diminished in bases Abdomen: positive: Non-tender, Soft Skin: positive: Pallor, Dryness, Other (scab on left elbow from fall/ no s/s infection) Extremities: positive: No pedal edema, Other (poor truncal support; leans to right) Neurologic/Psychiatric: positive: Oriented x3, Weakness, Slurred/abnml speech, Depressed mood/affect (tearful), Flat affect Palliative Care - POLST Patient has POLST: Yes POLST Status: DNR, Selective Treatment Pain: Pain unchanged, Location (right rib area/ poor truncal stabililty ; uses oxycodone at night; 1/2 tab in day if worses) Tiredness/Fatigue: Moderate (4-6) Drowsiness/Sedation: Moderate (4-6) (reports sleeping more in day; attributes to boredome) Nausea: None Anorexia: None Dyspnea: Moderate (4-6) Depression: Moderate (4-6) Anxiety: Severe (7-10) Feelings of wellbeing/Perceived Quality of Life: Fair, Acceptable, Worsening Sleep: Sleeps well Constipation: Intermittent constipation Performance Status: Patient reports his continued functional decline, spending much more time with his pivot transfers and being rolled around with walker or transport chair. Having increased difficulty with car transfers which discourages her from going out. Also concerned about 's driving, so less likely to ask him to take her out. Does feel like balance is worse, this is related also to freezing, does note her memory is worsening as well, has not been able to do [place] for months. She has her help her in the shower, . - Palliative Care Discussion: Patient does recognize her ongoing decline, she does have insight to the seriousness of her illness. She is mostly worried though about her , as he is continued decline as well, particularly with his memory issues. She is worried about him getting lost when he is out driving, did encourage her to engage her daughter more and keeping her breasts. He does get frustrated, and can cause quite a bit of tension between the 2 of them. She does not feel unsafe, she is just concerned. It is very fragile and there, as she is quite dependent on him, if his health continues to deteriorate. She is quite tearful through this conversation, appropriately so Results - Lab Results Lab results reviewed: Yes Lab and Imaging Results: PCP had labs drawn on 10/31/2019 when these were reviewed Impression and Recommendations - Palliative Care Impression: This is a 70-year-old woman with progressive and advanced Parkinson's, who continues with both functional and cognitive decline. She does present with persistent symptoms of fluctuating dyskinesias, autonomic dysfunction, intermittent incontinence though improved on the oxybutynin, and drooling. Patient is a complex social situation with multiple stressors. Palliative care to continue provide support regarding symptom management, anticipatory guidance and coordination of care. Recommendations/Counseling Done: 1. Advanced Parkinson's. Patient continues with functional and cognitive decline, fluctuating levels of dyskinesias. She is now mostly chair bound, ambulating much less. She remains even that this though a high fall risk, she has not followed through on her appointment with neurology. 2. Dental decay. Patient was to follow-up with dentist the next day after our last appointment, unfortunately had canceled. Recommended she follow through sooner than later, as she continues to have deterioration in her dental health. 3. Depression. Patient is on venlafaxine 75 mg twice a day, has not had any panic/anxiety attacks though has had weight gain as well as given her multiple stressors is appropriately tearful. Counseling provided regarding supporting her through concerns, ways to engage further support of her daughter, and encouraged to start integrating some long-term planning that would look at both of their health decline. 4. Constipation. Patient continues to struggle with stool incontinence, had seen Dr. Roman, she thinks she is having some kind of procedure. I suspect given his notes is just a colonoscopy to look further at the problem. Patient has been quite resistant to titrating of bowel meds, have been working with diet, she does not always remember to follow through on recommendations given her cognitive decline. Patient does not present with anemia. 5. Advanced care planning. Patient does have a POLST in place with DN AR/selective she does have her "plot" and plans taking care of. She does understand she is on a downward course, she is quite anxious as the two of them are both having health problems about a long-term plan. Did offer up medical palliative care social organization professor, wants to wait but aware of resource. 45 minutes with greater than 50 % of this done in counseling regarding anxiety, depression, pain, and anticipatory guidance regarding disease progression. Patient with significant stressors, is challenged with cognitive decline to manage these, encouraged to include her daughter and her plans.
== END 2020-11-21 14:42 | disposition home or self-care (01) ==
LOC: PC 14:41
PROVIDERS: ATTEND Nurse Practitioner Adult Health
DX: Z51.5 Encounter for palliative care (principal); G20 Parkinson's disease; K02.9 Dental caries, unspecified; F32.9 Major depressive disorder, single episode, unspecified; K59.00 Constipation, unspecified; Z66 Do not resuscitate
CPT/HCPCS: 99349

== ENCOUNTER 2021-01-14 14:35 | Outpatient (CLI) | payer MEDICARE, OTHER, MEDICAID ==
--- NOTE | 2021-01-14 16:50 | CONSULTATION NOTE ---
Palliative Care Follow Up - Referral Referring Provider: Kimberly Eden PA-C Time of Visit: [id number] Referral setting: Home Referral Reason: Advanced Parkinsons/Anxiety - Information Sources Records reviewed: Previous records reviewed History/Review of Systems obtained from: Patient Exam limitations: Clinical condition (patient with worening memory issues) - History of Present Illness Update Brief HPI Update: This is a 71-year-old woman with advanced Parkinson, continue to struggle with fluctuating dyskinesias. She is having a very difficult day today, with difficulty talking, tight jaw, increasing difficulty with feeding herself, needing to be fed at least one meal a day. Her reports these periods are lasting for several hours, at least once a day. She is quite stiff on examination, even with cueing needs help with moving her extremities. Her functional status continues to decline, she is now mostly wheelchair-bound, as her balance has worsened. She reports her cognitive decline continues to fluctuate, continues with short-term memory issues, and is very distressed with her 's dementia worsening, unfortunately this is put her in a position of needing more oversight and is worsening her anxiety disorder. Her urinary incontinence is better controlled with oxybutynin, she reports her fecal incontinence and bowels are being managed with her new medication of Questran, twice a day. She is having more choking, does have a good cough effort at this point in time, but also has choking with secretions. Patient did follow-up with neurology as instructed, no other medication changes made, other than instructed to trial clonazepam 0.5 mg twice daily, to address her anxiety. Unfortunately she had significant reaction to this, with jitteriness, shaking, and made her anxiety worse. We did discuss in the context of this she had been originally started on venlafaxine, have titrated up over the last year with each time some improvement. We will go ahead and titrate up to maximize dose at 225 mg. Past Medical History: Diplopia, dental decay, fatigue, urinary incontinence, depression, and anxiety Social History - Living Situation Living arrangement: At home Living Situation: With spouse/s.o. Support System: She lives with her spouse Isaiah, who is having declining health and health issues as well. She does have [employer], with several hours of caregiving a day but none on the weekends. She is anxious as his health declines, if she is going to be able to manage at home, at this point in time they both feel like she is doing okay. Medications/Allergies - Medications Home Medications: Ambulatory Orders Medication Instructions Recorded Confirmed Omeprazole [PriLOSEC] 20 mg PO BID 02/17/17 01/14/21 Ropinirole HCl 3 mg PO .4 MG/3MG/3MG 02/17/17 01/14/21 Trihexyphenidyl HCl 2 mg PO TID 07/24/17 01/14/21 oxyCODONE/ACET 5/325 [Percocet 5 0.5 - 1 g PO Q4HR PRN MDD 4 tabs 07/24/17 01/14/21 mg/325 mg] Amantadine HCl [Amantadine] 100 mg PO TID 10/08/18 01/14/21 Venlafaxine ER [Effexor ER] 75 mg PO TID 03/26/19 01/14/21 Multivitamin [Multivitamins] 1 tab PO DAILY 09/15/19 01/14/21 Oxybutynin Chloride [Ditropan Xl] 15 mg PO DAILY MDD DR 10/02/20 01/14/21 Cholestyramine [Questran] 4 gm PO BID 01/14/21 01/14/21 - Allergies Allergies/Adverse Reactions: Allergies Allergy/AdvReac Type Severity Reaction Status Date / Time No Known Drug Allergies Allergy Verified 05/25/19 19:41 Review of Systems - Constitutional Constitutional: reports: Fatigue, Weakness, Weight loss (difficult with more choking). denies: Fever, Chills - Eyes Eyes: reports: Vision loss, Dipolpia - Ears, Nose & Throat Ears, Nose & Throat: reports: Dental decay (did get to the dentist; trying to decide on work to do; does need 4 pulled), Dry mouth - Cardiovascular Cardiovascular: reports: Lightheadedness, Decr. exercise tolerance. denies: Chest pain, Edema - Respiratory Respiratory: reports: Cough (with eating and now with secretions/saliva). denies: SOB at rest - Gastrointestinal Gastrointestinal: reports: Reflux/heartburn (improved with omeprazole BID; encouraged to decrease to daily if tolerated), Good appetite. denies: Constipa tion (saw surgeion; recommended Questran; has helped; did not need to do colonoscopy-cologuard negative) - Genitourinary Genitourinary: reports: Incontinence (less with new medication) - Musculoskeletal Musculoskeletal: reports: Muscle aches, Stiffness, Limited range of motion, Muscle weakness, Transfer issues (pivots to rolling walker; being pushed around not ambulating) - Integumentary Integumentary: reports: Dryness, Nail changes (thickened nails; needs film librarian appointment; Dr Luis does not take ) - Neurological Neurological: reports: General weakness, Numbness, Memory problems, Slurred speech (voice weak;), Other (fluctuating dyskinethiseas appear worsening) - Psychiatric Psychiatric: reports: Anxiety (reports currently controlled; no recent panic attacks) - Hematologic/Lymphatic Hematologic/Lymph: denies: Recurrent infections - All Other Systems All Other Systems: reports: Other (poor STM and recall) Physical Exam - Vital Signs Temperature: 97.3 C Pulse Rate: 74 Respiratory Rate: 16 O2 Saturation: 98 (ra @ rest) Blood Pressure: 122/70 - Physical Exam General Appearance: positive: Alert, Mild distress (having difficult time with dyskinesthias;) Eyes Bilateral: positive: Normal inspection ENT: positive: Other (worsening dentition with missing teeth; needs 4 pulled) Neck: positive: Trachea midline Cardiovascular: positive: Regular rate & rhythm Respiratory: positive: No respiratory distress, Other (noted intermittent cough r/t saliva and drooling) Abdomen: positive: Non-tender, Soft Skin: positive: Pallor, Dryness, Other (right toe with redness) Extremities: positive: No pedal edema, Other (poor truncal support; leans to right) Neurologic/Psychiatric: positive: Disoriented to time, Weakness, Slurred/abnml speech (voice very strained and soft), Depressed mood/affect (tearful), Flat affect Palliative Care - POLST Patient has POLST: Yes POLST Status: DNR, Selective Treatment Pain: Pain unchanged, Location (right side/back) Tiredness/Fatigue: Moderate (4-6) Drowsiness/Sedation: Moderate (4-6) (sleeping more during the day) Nausea: None Anorexia: Moderate (4-6) (new) Dyspnea: Mild (1-3) Depression: Moderate (4-6) Anxiety: Severe (7-10) Feelings of wellbeing/Perceived Quality of Life: Fair, Acceptable, Worsening Sleep: Sleeps well Constipation: Yes, Managed Performance Status: Patient with continued declining functional status. Is spending more time sitting on the couch, they are able to get her out in the wheelchair, but pivot transfers and ambulating few steps is getting more difficult. She is quite stiff today, she reports this fluctuates. She is now needing assistance with feeding because of the dyskinesias, and difficulty controlling her movements. Her is still helping her with showering, though this can his also can be more complicated. I would put her at a PPS of 50% - Palliative Care Discussion: Patient does report ongoing decline, and does recognize the seriousness of her illness, she is wishing she had more of a sense of prognosis. She is trying to make sense of what she should do with her dental issues, planning for the future, and worried about her 's worsening dementia as well. She is quite fragile and quite dependent on him for her to be able to stay at home. She reports her anxiety has been escalating, was unable to tolerate the clonazepam, was willing to try increased dose of venlafaxine as has helped in the past with titration. Patient's goals are to remain at home for as long as possible, she is at high risk for further decline or sequela from falls or infection. She is at increased aspiration risk. Impression and Recommendations - Palliative Care Impression: This is a 71-year-old woman with progressive and advanced Parkinson's, who continues to demonstrate both functional and cognitive decline. She does present with persistent symptoms of fluctuating dyskinesias, autonomic dysfunction, and drooling. She is in the context of a complex social situation with multiple stressors, which has escalated her underlying anxiety disorder. Palliative care to continue provide support regarding symptom management, anticipatory guidance, and coordination of care Recommendations/Counseling Done: 1. Anxiety. Patient's anxiety is multifactorial, related both to her current situation as well as her underlying depression. She has benefited in the past from titration of her venlafaxine, will go ahead and increase it to 225 mg total, as she did not tolerate benzodiazepines. She may benefit from the addition of Abilify if this is not helpful. Counseling provided regarding supporting her through her concerns, encouraged to continue to engage her daughter more in her day-to-day concerns and care and planning for the future, will continue to follow. 2. Dental decay. Patient did finally get to the dentist, she is looking at interventions, as well as having 4 teeth pulled. She is having difficulty deciding how much to invest in as far as her dental health, given her ongoing decline and prognosis. 3. Constipation. Patient did see Dr. Roman, she had a Cologuard which was negative. He had started her on Questran twice a day, with improvement of management of her fecal incontinence. Counseling provided regarding needing to take it an hour before her medications or will interfere with absorption. She acknowledged understanding. Am concerned though she does often have memory lapses. 4. Advanced Parkinson's. Patient continues with both functional and cognitive decline, fluctuating levels of dyskinesias. She is mostly chair bound, balance is worsening, she has seen neurology and will follow up. Patient remains at high risk for fall or sequela of aspiration, unfortunately has not found any medication management to assist with her symptoms, her quality of life continues to decline. 5. Onychomycosis. Patient with thickened fungal nails, particularly right great toe. Unfortunately patient's film librarian no longer takes her insurance, given the number of the only other alternative, who is getting ready to retire as well as a nurse who makes home visits just for nail care. 6. Advanced care planning. Patient does have a POLST in place with DN AR and selective treatments, she has some of her end-of-life planning done, she does understand she is on a downward course and gets quite anxious about this. She would benefit from further long-term planning, but has been quite resistant up to this point. 60 minutes with greater than 50% of this done in counseling regarding symptom management, counseling for anxiety, anticipatory guidance.
== END 2021-01-14 14:36 | disposition home or self-care (01) ==
LOC: PC 14:35
PROVIDERS: ATTEND Nurse Practitioner Adult Health
DX: Z51.5 Encounter for palliative care (principal); F41.9 Anxiety disorder, unspecified; K02.9 Dental caries, unspecified; K59.00 Constipation, unspecified; R32 Unspecified urinary incontinence; R15.9 Full incontinence of feces; G20 Parkinson's disease; B35.1 Tinea unguium; Z66 Do not resuscitate
CPT/HCPCS: 99350

== ENCOUNTER 2021-02-26 13:30 | Outpatient (CLI) | payer MEDICARE, OTHER, MEDICAID ==
--- NOTE | 2021-02-26 16:15 | CONSULTATION NOTE ---
Palliative Care Follow Up - Referral Referring Provider: Kimberly Eden PA-C Time of Visit: [id number] Referral setting: Home Referral Reason: Constipation/Advanced Parkinsons - Information Sources Records reviewed: Previous records reviewed History/Review of Systems obtained from: Patient, Family ( Bill home; poor STM) Exam limitations: Clinical condition (patient with poor STM) - History of Present Illness Update Brief HPI Update: This is a 71-year-old woman with advanced Parkinson's, continue to struggle with fluctuating dyskinesias, functional decline, and worsening short-term memory issues. She does have fluctuating symptoms, an underlying anxiety disorder, and most recently her biggest quality of life issue has been her fluctuating constipation and fecal incontinence. She had been started on Questran twice a day, she felt like this was managing her bowels to a more acceptable range. She has difficulty because of her Parkinson's and lack of fine motor movement managing the inconvenience of stool that is soft and/or oozing. She had been trialed on multiple different medications for her bowels, unfortunately with her short-term memory issues she cannot often remember what the reasons where she "did not like them". My experience of her what we initiate you she works initially, and then she finds fault and it. She called last week 02/19 and had quit the question, because she had gotten constipated, had to disimpact herself, and then had continuous diarrhea for 13/04. Unfortunately since then now at 6 8 has not had a bowel movement. Her abdomen is soft, bowel tones are decreased, no signs or symptoms of obstruction or rectal impaction. Patient is much more sedentary, she is now being transitioned through the house on a 4 wheeled walker, she can only walk with maximum assist for 5 steps, she is unable to assist much with the transfers. Because she is needing more a ssistance, she has been more homebound as she does not want anyone to hurt their back, and lifts and transfers. She spends most the time on the couch. His her is still helping her in the shower with bathing, she does have [employer] workers that assist with household tasks and cooking. Her other main stressor is her 's worsening dementia. Past Medical History: Diplopia, dental decay, fatigue, urinary incontinence, depression, anxiety Social History - Living Situation Living arrangement: At home Living Situation: With spouse/s.o. Support System: She lives with her Isaiah, who has declining health related to weight loss and worsening cognitive issues. She does have [employer] with several day hours of caregiving a day, but none on weekends. She is having difficulty with medication adherence had not taken her pills when I showed up at 130, unfortunately her [employer] worker who she assists her in remembering did not show up today. At this time they still feel like they are managing, though certainly of concern. Medications/Allergies - Medications Home Medications: Ambulatory Orders Medication Instructions Recorded Confirmed Omeprazole [PriLOSEC] 20 mg PO DAILY 02/17/17 02/26/21 Ropinirole HCl 3 mg PO .4 MG/3MG/3MG 02/17/17 02/26/21 Trihexyphenidyl HCl 2 mg PO TID 07/24/17 02/26/21 oxyCODONE/ACET 5/325 [Percocet 5 0.5 - 1 g PO Q4HR PRN MDD 4 tabs 07/24/17 02/26/21 mg/325 mg] Amantadine HCl [Amantadine] 100 mg PO TID 10/08/18 02/26/21 Venlafaxine ER [Effexor ER] 75 mg PO QPM 03/26/19 02/26/21 Multivitamin [Multivitamins] 1 tab PO DAILY 09/15/19 02/26/21 Oxybutynin Chloride [Ditropan Xl] 15 mg PO DAILY MDD DR 10/02/20 02/26/21 Senna [Senokot] 1 - 2 tab PO .QOD MDD titrate to 02/26/21 02/26/21 effect Wheat Dextrin [Benefiber] 1 packet PO DAILY 02/26/21 02/26/21 polyethylene glycoL 3350 [Miralax] 17 gm PO DAILY PRN 02/26/21 02/26/21 - Allergies Allergies/Adverse Reactions: Allergies Allergy/AdvReac Type Severity Reaction Status Date / Time No Known Drug Allergies Allergy Verified 05/25/19 19:41 Review of Systems - Constitutional Constitutional: reports: Fatigue, Weakness, Weight stable - Eyes Eyes: reports: Vision loss, Dipolpia - Ears, Nose & Throat Ears, Nose & Throat: reports: Dental decay (did get to the dentist; trying to decide on work to do; does need 4 pulled; awaiting final appt for dental ins urance), Dry mouth - Cardiovascular Cardiovascular: reports: Lightheadedness, Exertional dyspnea, Decr. exercise tolerance - Respiratory Respiratory: reports: Cough (with eating and now with secretions/saliva; high pitched but not stressful to her but to ; able to clear secretions). denies: SOB at rest - Gastrointestinal Gastrointestinal: reports: Constipation (no BM x 1 week per her report), Good appetite. denies: Reflux/heartburn (Taking daily) - Genitourinary Genitourinary: reports: Incontinence (less with new medication) - Musculoskeletal Musculoskeletal: reports: Muscle aches, Stiffness, Limited range of motion, Muscle weakness, Transfer issues (pivots to rolling walker; being pushed around not ambulating) - Integumentary Integumentary: reports: Dryness, Nail changes - Neurological Neurological: reports: General weakness, Numbness, Memory problems (worsening), Slurred speech (flucutates; clear today), Other (voice soft) - Psychiatric Psychiatric: reports: Anxiety (reports currently controlled; no recent panic attacks) - All Other Systems All Other Systems: reports: Other (poor STM and recall) Physical Exam - Vital Signs Temperature: 97.2 C Pulse Rate: 80 Respiratory Rate: 18 O2 Saturation: 98 (ra @ rest) Blood Pressure: 152/84 - Physical Exam General Appearance: positive: No acute distress, Alert Eyes Bilateral: positive: Normal inspection ENT: positive: No signs of dehydration, Other (poor dentition) Neck: positive: Trachea midline Cardiovascular: positive: Regular rate & rhythm Respiratory: positive: No respiratory distress, Diminished in bases, Other (no coughing observed during visit) Abdomen: positive: Non-tender, Soft, Abnml bowel sounds (decreased). negative: Guarding, Mass, Distended Skin: positive: Pallor, Dryness, Other Extremities: positive: No pedal edema, Other (gait shuffled in pivot transfer; on tip toes) Neurologic/Psychiatric: positive: Mood/affect nml, Disoriented to time, Weakness, Slurred/abnml speech (clearer than last visit), Flat affect Palliative Care - POLST Patient has POLST: Yes POLST Status: DNR, Selective Treatment Pain: Pain unchanged, Location (right sided with truncal slouching), Severity (3/10 mostly noted at night), Comment (uses APAP if needed during day; occasional 1/2 tab; one tab at bedtime) Tiredness/Fatigue: Moderate (4-6) Drowsiness/Sedation: Moderate (4-6) Nausea: None Anorexia: None Dyspnea: None Depression: Mild (1-3) Anxiety: Moderate (4-6) Feelings of wellbeing/Perceived Quality of Life: Fair, Acceptable, Worsening Sleep: Sleeps well Constipation: Yes, Unmanaged Performance Status: Patient's functional status continues to decline, she is mostly sitting on the couch or in bed now. She is still able to feed herself with this is quite messy, she is having some more choking but there is no pattern to it. She denies any trouble with swallowing. Her is providing bathing, but does need assistance with dressing and other ADLs. - Palliative Care Discussion: Patient is much calmer this visit, is less distressed. We currently have her only on the venlafaxine at bedtime, she feels like this is managing her depression and anxiety. With her short-term memory issues though it is hard to tell what is persistent as far as fluctuating mood and memory issues. She reports she is less obsessed with dying, she was very much wanting to know though what most Parkinson's patients of, we discussed pneumonia from aspirating, or increased weight loss and frailty from difficulties with swallowing. She did not seem distressed with this, and actually somewhat relieved. Patient is no longer having significant falls which was definitely the concern for her end-of-life event prior to this. She does have a POLST with DN AR, given her situation with her , I doubt he will be able to be a primary caregiver for end-of-life. She does have a daughter but clear if she would be willing to take on this responsibility. At this point in time patient is declining but is not meeting hospice criteria. Impression and Recommendations - Palliative Care Impression: This is a 71-year-old woman with progressive and advanced Parkinson's, who continues to demonstrate both functional and cognitive decline. She does present with persistent symptoms of fluctuating dyskinesias, autonomic dysfunction, drooling, and now with difficulty with constipation. She continues in the context of a complex social situation with multiple stressors. Today I do find her anxiety and depression controlled. Palliative care continue to provide support regarding symptom management, anticipatory guidance and coordination of care Recommendations/Counseling Done: 1. Constipation. Patient had been originally started on Questran twice a day, and had felt this did improve the management of her fecal incontinence. She called last week though and was quite distressed with it and stopped it cold turkey related to an impaction. Unfortunately her bowels have not moved since then. Patient given a dose of MiraLAX as that was what was in the home, instructed repeat if no BM next 24 hours. She is also instructed to get Benefiber, which she did like about the question is it provided formed stool which made it easier for her to manage. Will have her take 1 dose daily, and combined with senna concentrate 8.6 mg 1-2 tabs every other day to be able to move her bowels. This was written out for her. She continues to have significant memory lapses so will continue to follow her with this. 2. Dental decay. She is pursuing dental insurance, looking at having her recent lead pull teeth replaced with teeth. 3. Anxiety. This is multifactorial, over the last few weeks, I did titrate ry k down the venlafaxine to 75 mg at bedtime, based on observations from caregiver who has been consistently with her, with adding to her confusion and cognitive decline. She does seem to be doing better today. She continues to be worried about her who is declining mentally, have encouraged her to include her daughter more in what is happening day-to-day, will continue to follow. 4. Advanced Parkinson's. Patient continues with both functional and cognitive decline, fluctuating levels of dyskinesias though she feels these are better. She is mostly chair bound, she jake at high risk for fall and or sequela of aspiration. Continue to assist her with symptom service her quality of life continues to decline. 5. Medication adherence. Patient not taking her medications, her could not find them, patient reports she often relies on caregiver to remind her and often does not take them until later in the day. She does know the med she is taking, we did go through them and had her take her a.m. meds and follow-up on refills. is not able to assist her, and patient dislikes Mediset's. 6. Advanced care planning. Patient does have a POLST in place with DN AR and selective treatments, she has some of her end-of-life planning done, she does understand she is on a downward course and does get anxious about this so she is asking appropriate questions and much calmer today. She would benefit from further long-term planning but is been quite resistant up to this point. 50 minutes with greater than 50% of this done in counseling regarding bowel program, anticipatory guidance, and symptom management.
== END 2021-02-26 13:31 | disposition home or self-care (01) ==
LOC: PC 13:30
PROVIDERS: ATTEND Nurse Practitioner Adult Health
DX: Z51.5 Encounter for palliative care (principal); K59.00 Constipation, unspecified; K02.9 Dental caries, unspecified; F41.9 Anxiety disorder, unspecified; G20 Parkinson's disease; Z91.14 Patient's other noncompliance with medication regimen; F32.9 Major depressive disorder, single episode, unspecified; Z66 Do not resuscitate
CPT/HCPCS: 99349

== ENCOUNTER 2021-04-12 12:30 | Outpatient (CLI) | payer MEDICARE, OTHER, MEDICAID ==
--- NOTE | 2021-04-12 16:38 | CONSULTATION NOTE ---
Palliative Care Follow Up - Referral Referring Provider: Dr. Talon De Jesus Time of Visit: [id number] Referral setting: Home Referral Reason: Advanced Parkinsons/Joint pain - Information Sources Records reviewed: Previous records reviewed History/Review of Systems obtained from: Patient, Family ( Bill present) Exam limitations: Clinical condition (patient with STM deficits) - History of Present Illness Update Brief HPI Update: This is a 71-year-old woman with advanced Parkinson's, continue to struggle with fluctuating dyskinesias, ongoing functional decline, increased difficulty with cough and dysphagia, and worsening short-term memory issues. She does have fluctuating symptoms and an underlying anxiety disorder, she is quite discouraged with her declining quality of life. She still struggles with her bowels, she has been trialed on multiple different medications, with her short- term memory issues can often not remember when to take them or why she did not like them. She is quite distressed today, she has had some increase in incontinence. Reports it is not urge or stress, she just "let us go" despite her oxybutynin. She is much more sedentary, spending most of her time on the couch, she is using the rolling walker to transfer, her still helps with bathing. She does have [employer] workers, unfortunately her schedule was disrupted with one of her main one on vacation. She is complaining of increased pain, reports it is centralized in her hips and joints, has been using oxycodone 5 mg at bedtime only, for right-sided rib pain. Suspect she has osteoarthritis and with decreased activity is experiencing an exacerbation of her pain. She does have intermittent hallucinations related to cats, these do not cause her any trouble. She has intermittent episodes of verbalizations, that she makes noises, she cannot really explain these, reports is quite annoying. She is having more trouble concentrating reading, she used to be a voracious reader. She spends most of her time watching TV at this point in time. She is having some drooling which is quite distressing for her as well. She reports her dyskinesias are mostly in the evenings, are exacerbated by stress. Currently she is satisfied with her current regimen. She does sleep much more, she has not had any weight loss. Past Medical History: Diplopia, dental decay, fatigue, urinary incontinence, depression, anxiety. Social History - Living Situation Living arrangement: At home Living Situation: With spouse/s.o. Support System: She lives with her Isaiah, who has had declining health related weight loss and worsening cognitive issues. She reports these have somewhat improved but still remains problematic. She does have [employer] workers several hours of caregiving a day, but none on the weekends. She does have difficulty with medication adherence secondary to needing reminders and short-term memory issues at this point in time they feel like they are still managing the certainly many concerns. Medications/Allergies - Medications Home Medications: Ambulatory Orders Medication Instructions Recorded Confirmed Omeprazole [PriLOSEC] 20 mg PO DAILY 02/17/17 04/12/21 Ropinirole HCl 3 mg PO .4 MG/3MG/3MG 02/17/17 04/12/21 Trihexyphenidyl HCl 2 mg PO TID 07/24/17 04/12/21 oxyCODONE/ACET 5/325 [Percocet 5 0.5 - 1 g PO Q4HR PRN MDD 4 tabs 07/24/17 04/12/21 mg/325 mg] Amantadine HCl [Amantadine] 100 mg PO TID 10/08/18 04/12/21 Venlafaxine ER [Effexor ER] 75 mg PO QPM 03/26/19 04/12/21 Multivitamin [Multivitamins] 1 tab PO DAILY 09/15/19 04/12/21 Oxybutynin Chloride [Ditropan Xl] 15 mg PO DAILY MDD DR 10/02/20 04/12/21 Senna [Senokot] 1 - 2 tab PO DAILY MDD titrate to 02/26/21 04/12/21 effect polyethylene glycoL 3350 [Miralax] 17 gm PO DAILY PRN 02/26/21 04/12/21 Acetaminophen [Tylenol] 650 mg PO TID 04/12/21 04/12/21 - Allergies Allergies/Adverse Reactions: Allergies Allergy/AdvReac Type Severity Reaction Status Date / Time No Known Drug Allergies Allergy Verified 05/25/19 19:41 Review of Systems - Constitutional Constitutional: reports: Fatigue (worsening; sleeping 10 pm to 10 am; naps through day), Weakness, Weight stable - Eyes Eyes: reports: Vision loss, Dipolpia - Ears, Nose & Throat Ears, Nose & Throat: reports: Dental decay (did get to the dentist; trying to decide on work to do; does need 4 pulled; awaiting final appt for dental insurance), Dry mouth - Cardiovascular Cardiovascular: reports: Lightheadedness, Exertional dyspnea, Decr. exercise tolerance - Respiratory Respiratory: reports: Cough (with eating and now with secretions/saliva; high pitched but not stressful to her but to ; able to clear secretions). denies: SOB at rest - Gastrointestinal Gastrointestinal: reports: Constipation (going every 2-3 days; not following prescribed bowel program), Good appetite. denies: Reflux/heartburn (Taking daily) - Genitourinary Genitourinary: reports: Incontinence (exacerbation last 2-3 days; upsetting to patient denies s/s of infection). denies: Dysuria - Musculoskeletal Musculoskeletal: reports: Muscle aches, Stiffness, Limited range of motion, Muscle weakness, Transfer issues (pivots to rolling walker; being pushed around not ambulating) - Integumentary Integumentary: reports: Dryness, Nail changes (thickened toe nails starting to cause more pressure on toes and breakdown) - Neurological Neurological: reports: General weakness, Numbness, Memory problems (worsening), Slurred speech (flucutates; clear today), Other (voice soft) - Psychiatric Psychiatric: reports: Anxiety (reports currently controlled; no recent panic attacks; reports verbalizations/noises when anxious) - All Other Systems All Other Systems: reports: Other (poor STM and recall) Physical Exam - Vital Signs Temperature: 97.3 C Pulse Rate: 78 Respiratory Rate: 16 O2 Saturation: 96 (ra @ rest) Blood Pressure: 114/70 - Physical Exam General Appearance: positive: No acute distress, Alert Eyes Bilateral: positive: Normal inspection ENT: positive: No signs of dehydration, Other (poor dentition) Neck: positive: Trachea midline Cardiovascular: positive: Regular rate & rhythm Respiratory: positive: No respiratory distress, Diminished in bases, Other (no coughing observed during visit) Abdomen: positive: Non-tender, Soft, Abnml bowel sounds (decreased). negative: Guarding, Mass, Distended Skin: positive: Pallor, Dryness, Pressure wound (small areas of pressure from length of toe nails) Extremities: positive: Pedal edema (dependent edema in feet/ankle), Other (gait shuffled in pivot transfer; on tip toes) Neurologic/Psychiatric: positive: Mood/affect nml, Disoriented to time, Weakness, Slurred/abnml speech (clearer than last visit), Flat affect Palliative Care - POLST Patient has POLST: Yes POLST Status: DNR, Selective Treatment Pain: Pain worsening, Location (Describes pains in bilateral hips, shoulders, and knees, has gradually been increasing over the last several weeks.) Tiredness/Fatigue: Moderate (4-6) Drowsiness/Sedation: Moderate (4-6) Nausea: None Anorexia: None Dyspnea: None Depression: Mild (1-3) Anxiety: Moderate (4-6) Feelings of wellbeing/Perceived Quality of Life: Fair, Worsening, Comment (This is a first-time patient was willing to discuss her declining quality of life, and her distress over her increasing dependence) Sleep: Sleeps well Constipation: Yes, Unmanaged, Intermittent constipation Performance Status: Patient's functional status continues to decline, she is mostly sedentary on the couch or in bed now. She is able to feed herself though this is quite difficult and messy, she is having more choking but there is no pattern to this. She reports she tries and chews but is able to still clear her secretions. She does admit to days to some problems with swallowing. Her is providing bathing, but does need assistance in dressing with all ADLs. - Palliative Care Discussion: Patient was quite open that she had not expected to live this long, she does not feel depressed but is just feeling more like a burden, as well as feels like her quality of life is declining. Up to this point in time she has been always wanting to look at the bright side. She is very much more dependent, and this has been difficult for her, she is always been able to power through before. Patient does have POLST with DN AR and selective treatments. Continue to have concerns about being able to be primary caregiver for end-of-life, will address and revisit DPOA given his worsening memory problems next visit Impression and Recommendations - Palliative Care Impression: This is a 71-year-old woman with progressive and advanced Parkinson's who continues to demonstrate both functional and cognitive decline. She does present with persistent symptoms of fluctuating dyskinesias, autonomic dysfunction, drooling, increased difficulty with neurogenic bowel and bladder. She continues in the context of a complex social situation with multiple stressors. Palliative care continue to provide support regarding symptom management, anticipatory guidance and coordination of care Recommendations/Counseling Done: 1. Constipation. Patient did not follow through on recommended bowel program, she was to start Benefiber as she was needing more bulk to her stool, and also combined with senna. She has had these written out, she did do some intermittent MiraLAX. She still needs to get the senna. She continues to have significant memory lapses so we will continue to follow with this. 2. Anxiety. This is multifactorial, she actually appears quite calm today. She is quite reflective on her declining quality of life, and tearful. She denies worsening anxiety or depression, just experiencing grief and loss. 3. Advanced Parkinson's. Patient continues with both functional and cognitive decline, Fluctuating levels of dyskinesias though she perceives these is better. She is mostly chair bound, remains at high risk for fall and sequela of aspiration with her continued choking. We will continue to monitor her decline, goal is to focus on quality of life issues, patient is hopeful for a at home with hospice. 4. Lower extremity edema. Patient sits with her legs dependent, has been instructed to elevate, or consider support hose. Patient remains quite resistant to either suggestion 5. Medication adherence. Patient continues to have a lot of reliance on caregiver to remind her to take her meds, unfortunately they have not been present this week. She does know her med she is taking has been is unable to assist her, and patient dislikes Mediset's. 6. Stage I decubs on multiple toes. This is related to her long nails, and shoes she is wearing. Counseling provided to tell her to call the development advisor and get in sooner, she does not have an appointment until the end of April. She is at high risk for further injury. 7. Advanced care planning. Patient has a POLST in place with DN AR and selective treatments, she has some of her end-of-life planning done, she does understand she is on a downward course and is starting to feel this more acutely as well as her declining quality of life. She is more open to further long-t erm planning, this has not been the case up to this point, will continue to explore her fears and concerns as well as resources and looking forward. 60 minutes with greater than 50% of this time in counseling regarding pain and symptom management, goals of care, had anticipatory guidance
== END 2021-04-12 12:31 | disposition home or self-care (01) ==
LOC: PC 12:30
PROVIDERS: ATTEND Nurse Practitioner Adult Health
DX: Z51.5 Encounter for palliative care (principal); G20 Parkinson's disease; R53.83 Other fatigue; K59.00 Constipation, unspecified; F41.9 Anxiety disorder, unspecified; R44.3 Hallucinations, unspecified; R60.0 Localized edema; R32 Unspecified urinary incontinence; L89.891 Pressure ulcer of other site, stage 1; K08.9 Disorder of teeth and supporting structures, unspecified; M25.552 Pain in left hip; M25.551 Pain in right hip; M25.562 Pain in left knee; M25.561 Pain in right knee; M25.512 Pain in left shoulder; M25.511 Pain in right shoulder; Z79.899 Other long term (current) drug therapy; Z91.138 Patient's unintentional underdosing of medication regimen for other reason; Z74.09 Other reduced mobility; Z74.8 Other problems related to care provider dependency; Z66 Do not resuscitate
CPT/HCPCS: 99350

== ENCOUNTER 2021-05-16 12:30 | Outpatient (CLI) | payer MEDICARE, OTHER, MEDICAID ==
--- NOTE | 2021-05-16 14:43 | CONSULTATION NOTE ---
Palliative Care Follow Up - Referral Referring Provider: Dr. Talon De Jesus Time of Visit: [id number] Referral setting: Home Referral Reason: Advanced Parkinsons/Anxiety - Information Sources Records reviewed: Previous records reviewed History/Review of Systems obtained from: Patient, Family ( Bill present), Caregiver (benji) Exam limitations: Clinical condition (patient with worsening STM issues) - History of Present Illness Update Brief HPI Update: This is a 71-year-old woman with advanced Parkinson's, continue to struggle with fluctuating dyskinesias, ongoing functional decline, now mostly sedentary on couch, can walk a few feet. She is having increased difficulty with cough and dysphagia and worsening memory issues. She has fluctuating symptoms and an underlying anxiety disorder, and continues to struggle with her worsening quality of life. She has had difficulty with her bowels, has trialed multiple different medications, but with her short-term memory issues cannot often remember what she has tried and not tried as well as had to effectively use them. The patient has worsening pain and stiffness in her lower extremities, she is quite tight, both through her upper arms and her lower legs. She cannot on demand lift them, but does need to have some slow stretching done. She uses o xycodone 5 mg at bedtime only for right-sided rib pain, her trunk stability is worsening. I suspect her osteoarthritis with decreased activity is also part of her exacerbation of pain. She does have intermittent hallucinations related to cats, these do not cause her any trouble. She has ongoing low-grade verbalizations, but cannot really explain these, finds he is quite annoying. She does have develop a concentrating and reading, she reports her dyskinesias are mostly in the evenings and exacerbated by stress. She does sleep more, she is not had any weight loss. On examination today she is clenching her jaw, she reports her throat is "itchy", her voice is very gravelly and is having trouble expressing herself. He is very anxious that she had "signed up for [employer]" and thought it was just for dental, but is a full meal healthcare program and reports she did not understand this. She also is distressed as her filled out the Medicaid renewal application regarding finances and put N/A overall over it And is worried about losing her medicated and [employer] P[employer]. Patient's 's forgetfulness and Alzheimer's worsening, she is aware they need to look at a bigger picture and plan. The neurologist had suggested they moved in with children or look at an alternative setting. Past Medical History: Diplopia, dental decay, urinary incontinence, depression, anxiety Social History - Living Situation Living arrangement: At home Living Situation: With spouse/s.o. Support System: Patient lives at home with her Isaiah, he is having more trouble with his memory and back pain, he is her main caregiver, and concern for long-term plan. She does have [employer] workers several hours of caregiving a day, but none on weekends. She does have difficulty with medication adherence secondary to needing reminders and short-term memory issues, and review of medications it is looking like she has made a few mistakes today, and unable to recall our previous visit and instructions.Discussed with her about engaging her daughter particularly around medications as she is managing her 's medications, but she is reluctant she is very busy with work. Medications/Allergies - Medications Home Medications: Ambulatory Orders Medication Instructions Recorded Confirmed Omeprazole [PriLOSEC] 20 mg PO DAILY 02/17/17 05/16/21 Ropinirole HCl 3 mg PO TID 02/17/17 05/16/21 Trihexyphenidyl HCl 2 mg PO TID 07/24/17 05/16/21 oxyCODONE/ACET 5/325 [Percocet 5 0.5 - 1 g PO Q4HR PRN MDD 4 tabs 07/24/17 05/16/21 mg/325 mg] Amantadine HCl [Amantadine] 100 mg PO TID 10/08/18 05/16/21 Venlafaxine ER [Effexor ER] 75 mg PO QPM 03/26/19 05/16/21 Multivitamin [Multivitamins] 1 tab PO DAILY 09/15/19 05/16/21 Senna [Senokot] 1 - 2 tab PO DAILY MDD titrate to 02/26/21 05/16/21 effect Acetaminophen [Tylenol] 650 mg PO TID PRN 04/12/21 05/16/21 - Allergies Allergies/Adverse Reactions: Allergies Allergy/AdvReac Type Severity Reaction Status Date / Time No Known Drug Allergies Allergy Verified 05/25/19 19:41 Review of Systems - Constitutional Constitutional: reports: Fatigue (worsening; sleeping 10 pm to 10 am; naps through day), Weakness, Weight stable - Eyes Eyes: reports: Vision loss, Dipolpia - Ears, Nose & Throat Ears, Nose & Throat: reports: Dental decay (did get to the dentist; does need 4 pulled; awaiting final appt for dental insurance but does not have an appointment they are looking worse), Dry mouth, Other (drools to the right) - Cardiovascular Cardiovascular: reports: Lightheadedness, Exertional dyspnea, Decr. exercise tolerance - Respiratory Respiratory: reports: Cough (with eating and now with secretions/saliva; high pitched but not stressful to her but to ; able to clear secretions; discussed speech therapy and thick it today). denies: SOB at rest - Gastrointestinal Gastrointestinal: reports: Constipation (going every 5-7 days; not following prescribed bowel program; taking senna daily reports stool soft but difficulty with expelling; talking about tap water enemas-she and would NOT be able to manage), Good appetite. denies: Reflux/heartburn (Taking daily) - Genitourinary Genitourinary: reports: Incontinence (not much improvement; given SE recommended stopping for now). denies: Dysuria - Musculoskeletal Musculoskeletal: reports: Muscle aches, Stiffness, Limited range of motion, Muscle weakness, Transfer issues (pivots to rolling walker; being pushed around not ambulating) - Integumentary Integumentary: reports: Dryness, Nail changes (thickened toe nails starting to cause more pressure on toes and breakdown) - Neurological Neurological: reports: General weakness, Numbness, Memory problems (worsening), Slurred speech (flucutates; gravelly and difficult to talk today), Other (voice soft) - Psychiatric Psychiatric: reports: Anxiety (reports currently controlled; no recent panic attacks; reports verbalizations/noises when anxious; patient had increased her venalafaxine again to TID for two days, "forgot" new dosing of one pill at night daily) - All Other Systems All Other Systems: reports: Other (poor STM and recall) Physical Exam - Vital Signs Temperature: 97.2 C Pulse Rate: 70 Respiratory Rate: 18 O2 Saturation: 98 Blood Pressure: 112/72 - Physical Exam General Appearance: positive: Alert, Mild distress, Anxious Eyes Bilateral: positive: Other (squinting and difficulty focusing) ENT: positive: No signs of dehydration, Other (poor dentition; drooling) Neck: positive: Trachea midline Cardiovascular: positive: Regular rate & rhythm Respiratory: positive: No respiratory distress, Diminished in bases, Other (choked on coffee; coughing jag about 2-3 minutes; able to clear secretions; fluctuates in frequency but at least once daily) Abdomen: positive: Non-tender, Soft, Abnml bowel sounds (decreased). negative: Guarding, Mass, Distended Skin: positive: Pallor, Dryness Extremities: positive: Pedal edema (trace edema) Neurologic/Psychiatric: positive: Mood/affect nml, Disoriented to time, Weakness, Slurred/abnml speech (voice garbley and difficulty ennuciating), Flat affect Palliative Care - POLST Patient has POLST: Yes POLST Status: DNR, Selective Treatment Pain: Pain unchanged, Location (legs; joints stiffness) Tiredness/Fatigue: Moderate (4-6) Drowsiness/Sedation: Moderate (4-6) Nausea: None Anorexia: None Dyspnea: None Depression: Mild (1-3) Anxiety: Moderate (4-6) Feelings of wellbeing/Perceived Quality of Life: Fair, Worsening Sleep: Sleeps well Constipation: Yes, Unmanaged Performance Status: Patient's functional status continues to climb, she is mostly sedentary on the couch or bed now. She did see the neurologist to encourage her to do more range of motion and stretching exercises, she continues to feed herself though this is difficult and messy. She is having more choking, she tries to chew is still having some difficulty even with her secretions. Her is still providing bathing, but does need assistance with dressing and ADLs. - Palliative Care Discussion: Patient remains quite distressed today, regarding her recent change in insurance, as well as her [employer] P[employer] application. Did leave a message for Diana to locate her correctional casework specialist to see if we can remedy this. She remains distressed with her 's worsening health, increasing pain and memory issues. At this point he is still able to assist her. She reports the neurologist very much encouraged them both to move them with their children, or look at a setting where she would have more help. She is very much more dependent and this continues to be difficult for her. Patient does have POLST with DN AR/DNI and selective treatments. I do have concerns about has not been able to be primary caregiver for end-of-life particularly around DPOA given his worsening memory. May need to have updated decision-makers. Impression and Recommendations - Palliative Care Impression: This is a 71-year-old woman with progressive and advanced Parkinson's who continues to demonstrate both functional and cognitive decline. She is having increased discomfort with her stiffness, would benefit from therapy support in the home setting particularly to address range of motion she does have a caregiver who can assist, speech for safety and swallow eval, and MEDICAL ANTHROPOLOGIST for long- term planning. She continues with persistent symptoms of fluctuating dyskinesias, autonomic dysfunction, increasing difficulty with neurogenic bowel and bladder. She continues in the context of complex social situation with multiple stressors. Palliative care continue to provide support regarding symptom management, anticipatory guidance and coordination of care Recommendations/Counseling Done: 1. Constipation. Patient continues have difficulty following through on bowel program, she has had multiple programs written out. At this time she is only taking senna, she reports is very soft and mushy, and difficulty with expelling, reports bowel movement every 5 to 7 days. She is interested in enemas, discussed the difficulty between her and her being able to do this. Recommended Enemeez to use every 3 to days if no BM. Provided her the instruction and encouraged to purchase. 2. Anxiety. This is multifactorial, she is quite escalated today. She is also overmedicated herself with her venlafaxine again, she was supposed to decrease back to daily and has been taking this until this week. She is quite anxious over her mistakes with insurance and concerned about losing her [place] PES. Have reached out to [facility] to update insurance, and left message for [employer] PES supervisor [employer] to help remedy situation. 3. Advanced Parkinson's. Patient continues with both functional and cognitive decline, function levels of dyskinesias. She is mostly chair bound, would benefit from support of revisiting safety, range of motion, and supportive home exercise program. As well as revisiting swallowing precautions and long-term planning. 4. Medication adherence. Patient continues to rely quite a bit on caregiver to remind her to take her meds, often forgets her evening meds. Reviewed her medication list again, patient dislikes Mediset's. Remain concerned over patient's ability to manage long-term. 5. Advanced care planning. Patient has a POLST in place with DN AR and selective treatments she has some of her end-of-life planning, she does appear to be declining more rapidly with increased symptoms and more care needs. Will reach out to neurology if feels coming into the window of 6 months or less. I suspect we are looking at 6 to 12-month window. Will go ahead and order home health flow to provide support and may be a natural transition. [id number] patient is homebound and secondary to consider impact taxing effort to leave the home, patient is mostly chair bound/couch. She has increased weakness truncal instability and increasing care needs. PT for safety and mobility assessment and teaching regarding transfers, range of motion, fall prevention and fall recovery as well as modalities for pain management. Patient will also need speech therapy for evaluation of her dysphagia, cognitive assessment, and communication as this is getting more difficult. And senior medical director for long-term planning and consideration of transition to more supportive environment. 60 minutes with greater than 50% of this done in counseling regarding symptom management, medication adherence, review of pain and symptom management and anticipatory guidance.
== END 2021-05-16 12:31 | disposition home or self-care (01) ==
LOC: PC 12:30
PROVIDERS: ATTEND Nurse Practitioner Adult Health
DX: Z51.5 Encounter for palliative care (principal); K59.00 Constipation, unspecified; F41.9 Anxiety disorder, unspecified; G20 Parkinson's disease; Z91.14 Patient's other noncompliance with medication regimen; Z66 Do not resuscitate
CPT/HCPCS: 99350

== ENCOUNTER 2021-07-05 11:03 | Emergency (ER) | payer MEDICARE, OTHER, MEDICAID ==
--- NOTE | 2021-07-05 13:00 | XRAY Report ---
PROCEDURE: Ribs w/PA Chest LT INDICATIONS: fall, L rib pain TECHNIQUE: 2 views of the left ribs were acquired, along with a single view chest. COMPARISON: May 25, 2019 FINDINGS: Ribs: No acute, displaced fracture, bone destruction, or expansion. Chest: No focal consolidation, pleural effusion, or pneumothorax. The cardiomediastinal silhouette is within normal limits. IMPRESSION: 1.No significant abnormality.. Reviewed by: Saravanan Hay MD on 07/05/2021 12:59 PM PDT Approved by: Saravanan Hay MD on 07/05/2021 12:59 PM PDT Station ID: [id number]
--- NOTE | 2021-07-05 13:11 | ED Physician Documentation ---
PD HPI CHEST PAIN - Stated complaint Stated Complaint: LT SIDE PAIN - Chief complaint Chief Complaint: Resp - History obtained from History obtained from: Patient - Additional information Additional information: L side rib pain starting after a fall last night. She fell in the kitchen, onto the left side of face/thorax. Worse with activity. Dull, 7/10 pain.She also complains of a headache, moderate in intensity. This is from the fall. 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 - Present Medications Home Medications: Ambulatory Orders Medication Instructions Recorded Confirmed Omeprazole [PriLOSEC] 20 mg PO DAILY 02/17/17 05/16/21 Ropinirole HCl 3 mg PO TID 02/17/17 05/16/21 Trihexyphenidyl HCl 2 mg PO TID 07/24/17 05/16/21 oxyCODONE/ACET 5/325 [Percocet 5 0.5 - 1 g PO Q4HR PRN MDD 4 tabs 07/24/17 05/16/21 mg/325 mg] Amantadine HCl [Amantadine] 100 mg PO TID 10/08/18 05/16/21 Venlafaxine ER [Effexor ER] 75 mg PO QPM 03/26/19 05/16/21 Multivitamin [Multivitamins] 1 tab PO DAILY 09/15/19 05/16/21 Senna [Senokot] 1 - 2 tab PO DAILY MDD titrate to 02/26/21 05/16/21 effect Acetaminophen [Tylenol] 650 mg PO TID PRN 04/12/21 05/16/21 - Allergies Allergies/Adverse Reactions: Allergies Allergy/AdvReac Type Severity Reaction Status Date / Time No Known Drug Allergies Allergy Verified 07/05/21 11:21 - Social History Does the pt smoke?: No Smoking Status: Never smoker Does the pt drink ETOH?: No Does the pt have substance abuse?: No - Immunizations Immunizations are current?: Yes - POLST Patient has POLST: Yes PD ED PE NORMAL - Vitals Vital signs reviewed: Yes - General General: Alert and oriented X 3, No acute distress - HEENT HEENT: PERRL, EOMI, Other (L periorbital ecchymosis.) - Neck Neck: Supple, no meningeal sign, No bony TTP - Cardiac Cardiac: RRR, No murmur, Other (Tender left lateral low ribs) - Respiratory Respiratory: No respiratory distress - Abdomen Abdomen: Soft, Non tender - Back Back: No CVA TTP, No spinal TTP - Derm Derm: Normal color, Warm and dry - Extremities Extremities: No edema, No calf tenderness / cord - Neuro Neuro: Alert and oriented X 3, No motor deficit, No sensory deficit, Normal speech Eye Opening: Spontaneous Motor: Obeys Commands Verbal: Oriented GCS Score: 15 - Psych Psych: Normal mood, Normal affect Results - Vitals Vitals: Vital Signs - 24 hr 07/05/21 11:19 Temperature 36.0 C L Heart Rate 83 Respiratory 16 Rate Blood Pressure 136/75 H O2 Saturation 100 Oxygen O2 Source Room air - Rads (name of study) L ribs and chest Radiology: EMP read contemporaneously (NAD/negative) X-ray of left ribs and chest and cervical and head CTs are normal with the exception of degenerative changes in the spine Radiology: EMP read contemporaneously Departure - Departure Disposition: 01 Home, Self Care Clinical Impression: Chest wall contusion Qualifiers: Encounter type: initial encounter Laterality: left Qualified Code(s): S20.212A - Contusion of left front wall of thorax, initial encounter Facial contusion Qualifiers: Encounter type: initial encounter Qualified Code(s): S00.83XA - Contusion of other part of head, initial encounter Condition: Good Record reviewed to determine appropriate education?: Yes Instructions: ED Contusion Chest Wall, ED Head Injury Closed Comments: Talk with your doctor about your frequent falls, Tylenol or ibuprofen as needed for pain. Return for new or worsening symptoms.
--- NOTE | 2021-07-05 14:00 | CT Report ---
PROCEDURE: HEAD WO INDICATIONS: head injury TECHNIQUE: Noncontrast 4.5 mm thick angled axial sections acquired from the foramen magnum to the vertex. For r adiation dose reduction, the following was used: automated exposure control, adjustment of mA and/or kV according to patient size. COMPARISON: CT head 07/24/2017, 02/17/2017. FINDINGS: Image quality: There is mild motion artifact. CSF spaces: Basal cisterns are patent. No extra-axial fluid collections. Ventricles are normal in size and shape. Brain: No intracranial hemorrhage, mass, or mass effect. The larsen-matter junction appears preserved. Skull and face: Calvarium and visualized facial bones are intact, without suspicious lesions. Sinuses: Visualized sinuses and mastoids are clear. IMPRESSION: 1. No acute intracranial abnormality. Reviewed by: Jairo Arcos MD on 07/05/2021 1:59 PM PDT Approved by: Jairo Arcos MD on 07/05/2021 1:59 PM PDT Station ID: [id number]
--- NOTE | 2021-07-05 14:04 | CT Report ---
PROCEDURE: CERVICAL SPINE WO INDICATIONS: head injury TECHNIQUE: Noncontrast 3 mm thick sections acquired from the skull base to the T4 level. Sagittal and coronal r eformats were then constructed. For radiation dose reduction, the following was used: automated exp osure control, adjustment of mA and/or kV according to patient size. COMPARISON: Cervical spine x-ray 07/24/2017. FINDINGS: Image quality: Excellent. Bones: No fractures or subluxation. There is straightening of the cervical doses. Minimal anterolist hesis is demonstrated at C4-C5. There is multilevel degenerative disc disease including moderate disc space narrowing at C5-C6 and C6-C7 with endplate sclerosis and osteophytosis. Multilevel facet arthr opathy is also redemonstrated throughout the cervical spine as well as fusion of the facet joints at C3-C4. Visualized superior ribs are intact. Soft tissues: Prevertebral soft tissues are normal in thickness. No paravertebral hematomas. No ap ical pneumothoraces. IMPRESSION: 1. No fracture or subluxation. 2. Straightening of the cervical lordosis and minimal anterolisthesis at C4-C5. 3. Multilevel degenerative disc disease most prominent at C5-C6 and C6-C7. Reviewed by: Jiaro Arcos MD on 07/05/2021 2:03 PM PDT Approved by: Jairo Arcos MD on 07/05/2021 2:03 PM PDT Station ID: [id number]
[2021-07-05 14:45] VITALS: BP 150/79
== END 2021-07-05 14:45 | disposition home or self-care (01) ==
LOC: ED 11:03
DX: S20.212A Contusion of left front wall of thorax, initial encounter (principal); S00.83XA Contusion of other part of head, initial encounter; W18.30XA Fall on same level, unspecified, initial encounter; Y92.000 Kitchen of unspecified non-institutional (private) residence as the place of occurrence of the external cause; G20 Parkinson's disease; M50.322 Other cervical disc degeneration at C5-C6 level; M48.02 Spinal stenosis, cervical region
CPT/HCPCS: 99282; 99284

== ENCOUNTER 2021-07-19 11:52 | Outpatient (CLI) | payer MEDICARE, OTHER, MEDICAID | END 2021-07-19 11:53 | disposition critical access hospital (66) | LOC: EMS 11:52 | DX: R51.9 Headache, unspecified (principal); M54.2 Cervicalgia | CPT/HCPCS: A0425; A0427 ==

== ENCOUNTER 2021-07-19 12:14 | Emergency (ER) | payer MEDICARE, OTHER, MEDICAID ==
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
[2021-07-19 16:19] VITALS: BP 188/84
== END 2021-07-19 16:36 | disposition home or self-care (01) ==
LOC: EDUNIT# → ED 12:14
DX: S00.83XA Contusion of other part of head, initial encounter (principal); S02.2XXA Fracture of nasal bones, initial encounter for closed fracture; Y04.2XXA Assault by strike against or bumped into by another person, initial encounter; G20 Parkinson's disease; Z91.81 History of falling
CPT/HCPCS: 99283; 99284

== ENCOUNTER 2021-07-19 16:35 | Outpatient (CLI) | payer MEDICARE, OTHER, MEDICAID | END 2021-07-19 16:36 | disposition home or self-care (01) | LOC: EMS 16:35 | PROVIDERS: ATTEND Registered Nurse | DX: Z74.01 Bed confinement status (principal) | CPT/HCPCS: A0425; A0429 ==

== ENCOUNTER 2021-08-05 11:45 | Outpatient (CLI) | payer MEDICARE, OTHER, MEDICAID ==
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
== END 2021-08-05 11:46 | disposition home or self-care (01) ==
LOC: PC 11:45
PROVIDERS: ATTEND Nurse Practitioner Adult Health
DX: Z51.5 Encounter for palliative care (principal); G20 Parkinson's disease; F41.9 Anxiety disorder, unspecified; K59.00 Constipation, unspecified; Z91.14 Patient's other noncompliance with medication regimen; Z66 Do not resuscitate
CPT/HCPCS: 99350

== ENCOUNTER 2021-09-02 13:30 | Outpatient (CLI) | payer MEDICARE, OTHER, MEDICAID ==
--- NOTE | 2021-09-02 15:50 | CONSULTATION NOTE ---
Palliative Care Follow Up - Referral Referring Provider: Kimberly Eden PA-C Time of Visit: [id number] Referral setting: Home Referral Reason: Advanced Parkinsons/depression - Information Sources Records reviewed: Previous records reviewed History/Review of Systems obtained from: Patient Exam limitations: Clinical condition (STM deficits) - History of Present Illness Update Brief HPI Update: This is a 71-year-old woman with advanced Parkinson's who continues to have ongoing functional and cognitive decline. She is getting more difficult to transfer, needing assistance with eating, reports choking is fluctuating. Patient's been experience with her ropinirole, she reports when she takes it in the morning she notes more difficulty with speech and her "moaning" behaviors, she had taken it off in the morning for a week with some improvement. She added it back today, which had recurrent behaviors. Though she is having more trouble with her RLS, particularly at bedtime. She does describe some baseline delusions, reports it is more difficulty to stay clear, she is trying to stay on top of things. She does have short-term memory issues, and her diplopia has been worse as well. Patient's biggest stressor is her 's dementia, he continues to deteriorate. She is quite tearful in describing that she has to keep telling him over and over her parents are , he often calls her Christina which is his sister, and does repetitive questions. He is sleeping at night, but is needing more direction and cueing for helping with her care. This is of somewhat concern, as he is her main caregiver. Past Medical History: Diplopia, dental decay, urinary incontinence, depression, anxiety Social History - Living Situation Living arrangement: At home Living Situation: With spouse/s.o. Support System: Patient does have [employer] workers, has 2 main when she is comfortable with. Her pillowcase folder is Yessica Escobedo [phone]. Bills declined his made things more difficult as far as meeting patient's care needs, her daughter Candida who lives nearby has been checking in at least daily with phone calls or visits. She also has a son who provides intermittent visits. Patient very much wants to stay at home, though is recognizing the tenuousness of the situation. Medications/Allergies - Medications Home Medications: Ambulatory Orders Medication Instructions Recorded Confirmed Omeprazole [PriLOSEC] 20 mg PO DAILY 02/17/17 09/02/21 Ropinirole HCl 3 mg PO . 1 TAB NOON 2 @ HS 02/17/17 09/02/21 Trihexyphenidyl HCl 2 mg PO TID 07/24/17 09/02/21 oxyCODONE/ACET 5/325 [Percocet 5 0.5 - 1 g PO Q4HR PRN MDD 4 tabs 07/24/17 09/02/21 mg/325 mg] Amantadine HCl [Amantadine] 100 mg PO TID 10/08/18 09/02/21 Venlafaxine ER [Effexor ER] 75 mg PO QPM 03/26/19 09/02/21 Multivitamin [Multivitamins] 1 tab PO DAILY 09/15/19 09/02/21 Senna [Senokot] 1 - 2 tab PO DAILY MDD titrate to 02/26/21 09/02/21 effect Acetaminophen [Tylenol] 650 mg PO TID PRN 04/12/21 09/02/21 Bisacodyl Supp [Dulcolax Supp] 1 supp [place] .Q3 DAYS 09/02/21 09/02/21 - Allergies Allergies/Adverse Reactions: Allergies Allergy/AdvReac Type Severity Reaction Status Date / Time No Known Drug Allergies Allergy Verified 07/19/21 12:20 Review of Systems - Constitutional Constitutional: reports: Fatigue (worsening; sleeping 10 pm to 10 am; naps through day), Weakness, Weight stable - Eyes Eyes: reports: Vision loss, Dipolpia (worsening; squinting one eye through all of visit) - Ears, Nose & Throat Ears, Nose & Throat: reports: Dental decay (did get to the dentist; does need 4 pulled; awaiting final appt for dental insurance but does not have an appointment they are looking worse), Dry mouth, Other (drools to the right) - Cardiovascular Cardiovascular: reports: Lightheadedness, Exertional dyspnea, Decr. exercise tolerance - Respiratory Respiratory: reports: Cough (with eating and now with secretions/saliva; high pitched but not stressful to her but to ; able to clear secretions;). denies: SOB at rest - Gastrointestinal Gastrointestinal: reports: Constipation (now distress oozing ongoing; not taking meds unless absolutely needed), Good appetite. denies: Reflux/heartburn (Taking daily) - Genitourinary Genitourinary: reports: Incontinence (not much improvement; given SE recommended stopping for now). denies: Dysuria - Musculoskeletal Musculoskeletal: reports: Muscle aches, Stiffness, Limited range of motion, Muscle weakness, Transfer issues (pivots to rolling walker; being pushed around not ambulating) - Integumentary Integumentary: reports: Dryness, Nail changes (thickened toe nails starting to cause more pressure on toes and breakdown) - Neurological Neurological: reports: General weakness, Numbness, Memory problems (worsening), Slurred speech (flucutates; gravelly and difficult to talk today) - Psychiatric Psychiatric: reports: Anxiety (reports currently controlled; no recent panic attacks; reports verbalizations/noises when anxious;) - All Other Systems All Other Systems: reports: Other (poor STM and recall) Physical Exam - Vital Signs Temperature: 97.7 C Pulse Rate: 105 Respiratory Rate: 18 O2 Saturation: 93 (ra @ rest) Blood Pressure: 142/78 - Physical Exam General Appearance: positive: Alert, Mild distress, Anxious (tearful and distressed with husbands decline) Eyes Bilateral: positive: Other (squinting and difficulty focusing) ENT: positive: No signs of dehydration, Other (poor dentition; drooling) Neck: positive: Trachea midline Cardiovascular: positive: Regular rate & rhythm, Tachycardia Respiratory: positive: No respiratory distress, Diminished in bases Abdomen: positive: Non-tender, Soft, Abnml bowel sounds (decreased). negative: Guarding, Mass, Distended Skin: positive: Pallor, Dryness Extremities: positive: Pedal edema (trace edema) Neurologic/Psychiatric: positive: Disoriented to time, Weakness, Slurred/abnml speech (voice garbley and difficulty ennuciating), Depressed mood/affect, Flat affect Palliative Care - POLST Patient has POLST: Yes POLST Status: DNR Pain: Location (new pain on left lower quadrant; denies falls; not sure what makes it better or worse; can "push" and it is more tender) Feelings of wellbeing/Perceived Quality of Life: Fair, Worsening Sleep: Sleeps well Constipation: Yes, Unmanaged Performance Status: Patient continues to functionally decline, needing more assistance with bathing, feeding, transfers. Though she has not had any falls. We did discuss at length my concerns about her still continue to bathe her, she is quite modest. Caregiver was present and more than willing to participate, we reviewed if she or Isaiah get hurt, that her being able to stay at home is going to be much more limited. - Palliative Care Discussion: Today's conversation really focused on supporting her around managing Isaiah and his worsening dementia. She is finding it very difficult, particularly with her own cognitive deficits to try and stay "on top of things". She reports no further behaviors that have been threatening or scary for her, reports he is "trying hard to do better", but cannot even remember the previous incident. We did discuss in the context of her current situation, that they are both dependent on each other, and it would be helpful to have a conversation about a bigger picture plan, though she does not feel like Isaiah could participate and I am somewhat in agreement with this. I encouraged her to continue to allow Francheska to support her and continue with conversations regarding regarding long- term planning. Impression and Recommendations - Palliative Care Impression: This is a 71-year-old woman with progressive and advanced Parkinson's, who continues to demonstrate both functional and cognitive decline. She continues to have persistent fluctuating dyskinesias, autonomic dysfunction and difficulty with neurogenic bowel and bladder. She does have a complex social situation with multiple stressors. Palliative care continue provide support regarding symptom management, anticipatory guidance and coordination of care Recommendations/Counseling Done: 1. Advanced Parkinson's. Patient continues with both functional and cognitive decline, fluctuating level of dyskinesias impacting patient's ability to self feed and transfer. She is mostly chair bound, continue concerns regarding safety. Patient has been encouraged to allow caregivers to provide bathing support and more hands-on care. She does depend quite a bit on Isaiah who is getting more confused with his dementia. 2. RLS. Patient has been fixated on the ropinirole as a problem for her worsening voice and vocalizations. She has been experimenting, but the RLS is worse and needing to pedal more. We discussed since she did find improvement in the morning, to take just 1 at noon and 2 at bedtime to be distributed not to decrease the total dosing. 3. Constipation. Patient continues to struggle, has not been willing to take daily medication, continues to use and finds this much frustrating. We did discuss neurogenic bowel, we did recommend every 3 days suppositories for bowel training to empty her lower rectum out to decrease smearing and oozing. Unclear patient's unable to follow through on this, but did make recommendation. 4. Medication adherence. Patient continues to rely quite a bit on caregivers to manage her take her meds, often forgets her evening meds. They do have a small Mediset but concerned about patient be able to manage this long-term. 5. Advanced care planning. Patient does have POLST in place with DN AR and selective treatments, she would benefit from reassigning medical power of admitted attorneys and doing more long-term planning with her children regarding managing finances in the future. Patient is due to see neurology 09/17, had canceled last patient appointment. I suspect we are looking at worsening prognostication, and a 6 to 12-month window at high risk for sequela of an acute event of aspiration pneumonia or sequela from a fall. 45 minutes with greater than 50% of this done in counseling regarding symptom management, psychosocial support in the context of managing her stressors, and anticipatory guidance.
== END 2021-09-02 13:31 | disposition home or self-care (01) ==
LOC: PC 13:30
PROVIDERS: ATTEND Nurse Practitioner Adult Health
DX: Z51.5 Encounter for palliative care (principal); G30.9 Alzheimer's disease, unspecified; F02.80 Dementia in other diseases classified elsewhere, unspecified severity, without behavioral disturbance, psychotic disturbance, mood disturbance, and anxiety; G25.81 Restless legs syndrome; K59.00 Constipation, unspecified; H53.2 Diplopia; R53.83 Other fatigue; R32 Unspecified urinary incontinence; F41.9 Anxiety disorder, unspecified; R41.3 Other amnesia
CPT/HCPCS: 99349

== ENCOUNTER 2021-10-09 14:00 | Outpatient (CLI) | payer MEDICARE, OTHER, MEDICAID ==
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
== END 2021-10-09 14:01 | disposition home or self-care (01) ==
LOC: PC 14:00
PROVIDERS: ATTEND Nurse Practitioner Adult Health
DX: Z51.5 Encounter for palliative care (principal); G20 Parkinson's disease; F41.9 Anxiety disorder, unspecified; F32.A Depression, unspecified; R32 Unspecified urinary incontinence; K59.00 Constipation, unspecified; Z66 Do not resuscitate
CPT/HCPCS: 99350

== ENCOUNTER 2021-11-07 13:00 | Outpatient (CLI) | payer MEDICARE, OTHER, MEDICAID ==
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
== END 2021-11-07 13:01 | disposition home or self-care (01) ==
LOC: PC 13:00
PROVIDERS: ATTEND Nurse Practitioner Adult Health
DX: Z51.5 Encounter for palliative care (principal); G20 Parkinson's disease; R41.89 Other symptoms and signs involving cognitive functions and awareness; R53.83 Other fatigue; F41.9 Anxiety disorder, unspecified; Z79.899 Other long term (current) drug therapy; Z63.79 Other stressful life events affecting family and household; Z74.1 Need for assistance with personal care; Z63.6 Dependent relative needing care at home; Z66 Do not resuscitate
CPT/HCPCS: 99350

== ENCOUNTER 2022-02-24 21:10 | Outpatient (CLI) | payer MEDICARE, OTHER, MEDICAID | END 2022-02-24 21:11 | disposition critical access hospital (66) | LOC: EMS 21:10 | DX: S50.11XA Contusion of right forearm, initial encounter (principal); S40.021A Contusion of right upper arm, initial encounter; S69.82XA Other specified injuries of left wrist, hand and finger(s), initial encounter; R45.89 Other symptoms and signs involving emotional state; Y04.8XXA Assault by other bodily force, initial encounter | CPT/HCPCS: A0425; A0429 ==

== ENCOUNTER 2022-02-24 21:37 | Emergency (ER) | payer MEDICARE, OTHER, MEDICAID ==
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
[2022-02-25] MEDS ORDERED: AMANTADINE 100 MG CAPSULE PO SCH (06:00)
[2022-02-25 09:47] VITALS: BP 174/86
[2022-02-25] MEDS ORDERED: rOPINIRole 1 MG TABLET PO SCH ×4 (12:00→21:00)
[2022-02-25] MEDS ORDERED: AMANTADINE 100 MG PO SCH (14:00)
[2022-02-25] MEDS ORDERED: VENLAFAXINE 37.5 MG TABLET PO SCH (21:00)
[2022-02-25] MEDS ORDERED: VENLAFAXINE ER 75 MG CAPSULE PO ONE (22:38)
[2022-02-25] MEDS ORDERED: rOPINIRole 1 MG TABLET ONE (22:38)
[2022-02-26] MEDS ORDERED: rOPINIRole 1 MG TABLET ONE ×2 (15:51→22:19)
[2022-02-26] MEDS ORDERED: VENLAFAXINE 37.5 MG TABLET PO ONE (22:20)
== END 2022-02-27 15:13 | disposition home or self-care (01) ==
LOC: EDBD → ED 21:37
DX: S09.90XA Unspecified injury of head, initial encounter (principal); S00.31XA Abrasion of nose, initial encounter; Y04.2XXA Assault by strike against or bumped into by another person, initial encounter; G20 Parkinson's disease; Z20.822 Contact with and (suspected) exposure to COVID-19
CPT/HCPCS: 70450; 87635; 99282; 99284; A9270

== ENCOUNTER 2022-02-27 14:54 | Outpatient (CLI) | payer MEDICARE, OTHER, MEDICAID | END 2022-02-27 14:55 | disposition home or self-care (01) | LOC: EMS 14:54 | PROVIDERS: ATTEND Emergency Medicine | DX: G20 Parkinson's disease (principal); R41.0 Disorientation, unspecified; F03.90 Unspecified dementia, unspecified severity, without behavioral disturbance, psychotic disturbance, mood disturbance, and anxiety | CPT/HCPCS: A0425; A0428 ==